=== PATIENT | female | born 1950 | race Two or more races ===

== ENCOUNTER 2017-04-19 13:39 | Emergency (ER) | payer OTHER, MEDICAID ==
[~2017-04-19] VITALS: Ht 157.5 cm; Wt 52.2 kg
[~2017-04-19 13:39] MED LIST: AMIT PO; AMLO10TA2 PO; ASPI81CH49 PO; ATEN50TA PO; CHOL100029; GABA300C8 PO; GLIP-115 PO; METF-312 PO; NITR400A5 SL; PIOG15TA46; PROVENTIL HFA INH; RABE20TA5 PO; SIMV-8 PO; [UNRECOGNIZED DRUG - OTHER]
[2017-04-19 15:28] VITALS: BP 157/59
[2017-04-19] MEDS ORDERED: IBUPROFEN 600 MG TAB PO ONE (15:45)
== END 2017-04-19 16:06 | disposition home or self-care (01) ==
LOC: ER 13:39
DX: S80.01XA Contusion of right knee, initial encounter (principal); M16.11 Unilateral primary osteoarthritis, right hip; E11.9 Type 2 diabetes mellitus without complications; I10 Essential (primary) hypertension; E78.5 Hyperlipidemia, unspecified; W10.8XXA Fall (on) (from) other stairs and steps, initial encounter; Y93.89 Activity, other specified; Y99.8 Other external cause status; Y92.89 Other specified places as the place of occurrence of the external cause; Z79.82 Long term (current) use of aspirin; Z88.0 Allergy status to penicillin; Z88.2 Allergy status to sulfonamides; Z79.899 Other long term (current) drug therapy
CPT/HCPCS: 73502; 73562

== ENCOUNTER 2018-02-12 02:00 | Inpatient (IN) | payer OTHER, MEDICAID ==
[~2018-02-12] VITALS: Ht 157.5 cm; Wt 60.3 kg
[~2018-02-12 02:00] MED LIST changes: +GABA300C10 PO; -GABA300C8 PO; -METF-312 PO; +METF-370 PO
[2018-02-12 02:45] LABS: Basophils # (auto) 0.1 uL; Basophils % (auto) 1.1 % (0.0-2.0); Eosinophils # (auto) 0.3 uL; Eosinophils % (auto) 4.6 % (0.0-7.0); Hematocrit 40.7 % (36.0-46.0); Hemoglobin 13.6 g/dL (12.2-16.2); Lymphocytes # (auto) 2.8 uL; Mean Corpuscular Hemoglobin 28.4 pg (28.0-32.0); Mean Corpuscular Hgb Conc. 33.3 g/dL (32.0-36.0); Mean Corpuscular Volume 85.1 fL (80.0-100.0); Monocytes # (auto) 0.6 uL; Monocytes % (auto) 8.9 % (0.0-12.0); Neutrophils % (auto) 44.4 % (37.0-80.0); Nucleated Red Blood Cells % 0.1 %; Platelet Count (auto) 221 10^3/uL (140-450); Red Blood Cells 4.78 10^6/uL (4.0-5.20); Red Cell Distribution Width 13.1 % (11.8-14.3); White Blood Cell 6.8 10^3/uL (4.4-10.8)
[2018-02-12 02:59] LABS: Albumin 3.7 g/dL (3.4-5.0); Anion Gap 11 (5-15); BUN/Creatinine Ratio 26.3; Blood Urea Nitrogen 15 mg/dL (7-18); Carbon Dioxide 23 mmol/L (21-32); Chloride 105 mmol/L (98-107); GFR African American 136 mL/min; GFR Non-African American 112 mL/min; Glucose 186 mg/dL (74-106); Magnesium 1.7 mg/dL (1.6-2.6); Potassium 3.1 mmol/L (3.5-5.1); Sodium 139 mmol/L (136-145)
[2018-02-12 03:11] LABS: Alanine Aminotransferase 16 U/L (13-56); Alkaline Phosphatase 86 U/L (45-117); Aspartate Aminotransferase 19 U/L (15-37); Bilirubin, Total 0.3 mg/dL (0.2-1.0); Total Protein 7.1 g/dL (6.4-8.2)
[2018-02-12] MEDS ORDERED: SODIUM CHLORIDE 0.9% 1,000 ML IV ONE (07:03)
[2018-02-12] MEDS ORDERED: POTASSIUM CHL 10% (20 MEQ/15ML) 15ml ORAL SOLN PO ONE (09:45)
[2018-02-12] MEDS ORDERED: MORPHINE SULFATE 4 MG/ML SYR/VIAL IV ONE (09:45)
[2018-02-12] MEDS: SODIUM CHLORIDE 0.9% 1,000 ML IV SCH (12:29)
[2018-02-12] MEDS ORDERED: ACETAMINOPHEN 500 MG TAB PO PRN (12:30)
[2018-02-12] MEDS ORDERED: PROMETHAZINE HCL 25 MG/ML 1ML IV PRN (12:30)
[2018-02-12] MEDS ORDERED: TEMAZEPAM 15 MG CAP PO PRN (12:30)
[2018-02-12] MEDS ORDERED: LACTULOSE 20Gm/30ML SOLN PO PRN (12:30)
[2018-02-12] MEDS ORDERED: PROVENTIL INH PRN (12:30)
[2018-02-12] MEDS ORDERED: ALBUTEROL SULF 2.5 MG/0.5ML(0.5%) NEB SOLN NEB PRN (12:30)
[2018-02-12] MEDS ORDERED: MORPHINE SULFATE 4 MG/ML SYR/VIAL IV PRN ×2 (12:30)
[2018-02-12] MEDS ORDERED: POTASSIUM CHL 20 Meq TABLET PO ONE (12:30)
[2018-02-12] MEDS ORDERED: NITROGLYCERIN 0.4 MG SL TAB SL PRN (12:30)
[2018-02-12] MEDS ORDERED: DEXTROSE (50%) 50ML SYRG IV PRN (12:30)
[2018-02-12] MEDS ORDERED: LORazepam 0.5 MG TAB PO PRN (12:30)
[2018-02-12 13:53] LABS: CRP High Sensitivity 0.27 mg/dL (< 0.3)
[2018-02-12 14:16] VITALS: BP 116/66
[2018-02-12 15:04] VITALS: BP 116/66
[2018-02-12 17:00] VITALS: BP 116/59
[2018-02-12] MEDS: ACCU-CHEK COMFORT CURVE STRIP VI SCH ×2 (17:06→22:11)
[2018-02-12] MEDS: glipiZIDE 5 MG TAB PO SCH (17:26)
[2018-02-12] MEDS: InsuLIN REG 1unit/0.01ml Soln (100units/ml) SC SCH ×2 (17:27→22:00)
[2018-02-12 20:00] VITALS: BP 136/79
[2018-02-12 22:00] VITALS: BP 136/79
[2018-02-12] MEDS ORDERED: AMITRIPTYLINE HCL 25 MG TAB PO SCH (22:00)
[2018-02-12] MEDS ORDERED: ATORVASTATIN 20 MG TAB PO SCH (22:00)
[2018-02-12] MEDS: GABAPENTIN 300 MG CAP PO SCH (22:11)
[2018-02-12] MEDS: METOPROLOL TARTRATE 50 MG TAB PO SCH (22:12)
[2018-02-12] MEDS: HYDROcodone-ACET 5/325MG TAB PO PRN (22:13)
[2018-02-13] MEDS: SODIUM CHLORIDE 0.9% 1,000 ML IV SCH (01:37)
[2018-02-13 05:00] VITALS: BP 138/79
[2018-02-13 06:25] LABS: Albumin 3.2 g/dL (3.4-5.0); BUN/Creatinine Ratio 34.1; Bilirubin, Total 0.3 mg/dL (0.2-1.0); Calcium 8.3 mg/dL (8.5-10.1); Total Protein 6.2 g/dL (6.4-8.2)
[2018-02-13] MEDS: HYDROcodone-ACET 5/325MG TAB PO PRN (06:26)
[2018-02-13] MEDS: glipiZIDE 5 MG TAB PO SCH (06:33)
[2018-02-13] MEDS: ACCU-CHEK COMFORT CURVE STRIP VI SCH ×2 (06:33→12:21)
[2018-02-13] MEDS: InsuLIN REG 1unit/0.01ml Soln (100units/ml) SC SCH ×2 (06:33→12:20)
[2018-02-13 09:15] VITALS: BP 120/68
[2018-02-13] MEDS: GABAPENTIN 300 MG CAP PO SCH (09:55)
[2018-02-13] MEDS: METOPROLOL TARTRATE 50 MG TAB PO SCH (09:55)
[2018-02-13] MEDS ORDERED: PANTOPRAZOLE 40 MG TAB PO SCH (10:00)
[2018-02-13] MEDS ORDERED: ASPirin 81 mg TAB PO SCH (10:00)
[2018-02-13] MEDS ORDERED: NITROGLYCERIN 0.2MG/HR TOPICAL PATCH TD SCH (10:00)
[2018-02-13] MEDS ORDERED: ENOXAPARIN SOD 40 MG/0.4 ML SYRINGE SC SCH (10:00)
[2018-02-13] MEDS ORDERED: amLODIPine BESYLATE 5 MG TAB PO SCH (10:00)
[2018-02-13 13:00] VITALS: BP 131/65
[2018-02-13] MEDS ORDERED: AMLO10TA2 PO (13:23)
[2018-02-13] MEDS ORDERED: MET50T PO (13:26)
[2018-02-13] MEDS ORDERED: AML5T PO (13:26)
[2018-02-13 14:29] VITALS: BP 130/68
[2018-03-03] MEDS ORDERED: AMI25T PO (16:16)
[2018-03-03] MEDS ORDERED: SITA100T7 (16:43)
[2018-03-03] MEDS ORDERED: ALBUAER3 (16:43)
[2018-03-03] MEDS ORDERED: CALC600T4 PO (16:43)
[2018-03-03] MEDS ORDERED: LACT10SO3 PO (16:43)
[2018-03-03] MEDS ORDERED: AMLO10TA2 (16:43)
[2018-03-03] MEDS ORDERED: GABA400C11 PO (16:43)
[2018-03-03] MEDS ORDERED: LOS25T (16:43)
[2018-03-03] MEDS ORDERED: PANT1POW PO (16:43)
[2018-03-03] MEDS ORDERED: METF-371 (16:43)
[2018-03-04] MEDS ORDERED: SITA100T7 PO (11:12)
[2018-03-04] MEDS ORDERED: LOSA25TA9 PO (11:31)
[2018-03-04] MEDS ORDERED: METF-371 PO (11:32)
== END 2018-02-13 16:05 | disposition home or self-care (01) | DRG 392 ==
LOC: EDBD 02:00 → ER 02:07 → TELE 02:08 → TELE-CENTR 13:52
PROVIDERS: ADMIT Internal Medicine; ATTEND Internal Medicine
DX: K52.9 Noninfective gastroenteritis and colitis, unspecified (principal); E11.40 Type 2 diabetes mellitus with diabetic neuropathy, unspecified; E11.51 Type 2 diabetes mellitus with diabetic peripheral angiopathy without gangrene; I25.119 Atherosclerotic heart disease of native coronary artery with unspecified angina pectoris; J44.9 Chronic obstructive pulmonary disease, unspecified; R07.89 Other chest pain; E78.5 Hyperlipidemia, unspecified; E87.6 Hypokalemia; K57.90 Diverticulosis of intestine, part unspecified, without perforation or abscess without bleeding; M19.90 Unspecified osteoarthritis, unspecified site; M54.9 Dorsalgia, unspecified; I10 Essential (primary) hypertension; K21.9 Gastro-esophageal reflux disease without esophagitis; M81.0 Age-related osteoporosis without current pathological fracture; Z82.49 Family history of ischemic heart disease and other diseases of the circulatory system; Z86.010 Personal history of colon polyps; Z83.3 Family history of diabetes mellitus; I25.2 Old myocardial infarction; Z88.0 Allergy status to penicillin; Z88.2 Allergy status to sulfonamides
CPT/HCPCS: 36415; 71045; 74176; 80053; 80061; 82150; 82550; 82962; 83036; 83690; 83735; 83880; 84443; 84484; 85025; 85379; 85652; 86141; 93005; 93306; 96374; J1815

== ENCOUNTER 2018-03-27 07:05 | Day surgery (SDC) | payer OTHER, MEDICAID ==
[~2018-03-27] VITALS: Ht 157.5 cm; Wt 52.0 kg
[~2018-03-27 07:05] MED LIST changes: -AMIT PO; -AMLO10TA2 PO; +AMLO5TAB2 PO; -ATEN50TA PO; +CALC600T4 PO; -CHOL100029; -GABA300C10 PO; +GABA400C11 PO; +LACT10SO3 PO; +LOSA25TA9 PO; -METF-370 PO; +METF-371 PO; +METO-158 PO; -NITR400A5 SL; +PANT1POW PO; -PIOG15TA46; -PROVENTIL HFA INH; -RABE20TA5 PO; +SITA100T7 PO; -[UNRECOGNIZED DRUG - OTHER]
[2018-03-27] MEDS ORDERED: fentaNYL CITRATE 100 MCG/2 ML VL ONE (08:57)
[2018-03-27] MEDS ORDERED: ANGIOMAX 250 MG VIAL IV ONE (08:57)
[2018-03-27] MEDS ORDERED: MIDAZOLAM HCL 1MG/1ML-2 ML VIAL ONE (08:57)
[2018-03-27] MEDS ORDERED: SODIUM CHL 0.9% 0 ML ONE (08:57)
[2018-03-27] MEDS ORDERED: LIDOCAINE 2%HCL (LOCAL ANESTH.) INJ 20ML MDV ONE (09:03)
[2018-03-27] MEDS ORDERED: IODIXANOL 320MG/ML 100ML BTL IV ONE (09:03)
[2018-03-27] MEDS ORDERED: VERAPAMIL 2.5MG/ML INJ 2ML VIAL IV ONE (09:15)
[2018-03-27] MEDS ORDERED: HEPARIN SODIUM (PORCINE) 5000 UNITS/ML 1ML VIAL ONE (09:33)
== END 2018-03-27 11:50 | disposition home or self-care (01) ==
LOC: CATH 07:05
PROVIDERS: ATTEND Internal Medicine
DX: I20.0 Unstable angina (principal); I25.9 Chronic ischemic heart disease, unspecified; Z88.0 Allergy status to penicillin; Z88.2 Allergy status to sulfonamides; Z98.51 Tubal ligation status; Z90.710 Acquired absence of both cervix and uterus; F41.9 Anxiety disorder, unspecified; F32.9 Major depressive disorder, single episode, unspecified; Z79.84 Long term (current) use of oral hypoglycemic drugs
CPT/HCPCS: 93005; C1769; C1894; J1644; J2250; J3010; J7030; Q9967; 93458; 99152

== ENCOUNTER 2018-04-21 14:15 | Emergency (ER) | payer OTHER, MEDICAID ==
[2018-04-21 16:04] LABS: Basophils # (auto) 0.1 uL; Basophils % (auto) 0.9 % (0.0-2.0); Eosinophils # (auto) 0.2 uL; Eosinophils % (auto) 3.2 % (0.0-7.0); Hematocrit 41.1 % (36.0-46.0); Lymphocytes # (auto) 2.1 uL; Lymphocytes % (auto) 29.8 % (10.0-50.0); Mean Corpuscular Hemoglobin 28.4 pg (28.0-32.0); Mean Corpuscular Hgb Conc. 34.1 g/dL (32.0-36.0); Mean Corpuscular Volume 83.3 fL (80.0-100.0); Monocytes # (auto) 0.5 uL; Monocytes % (auto) 7.3 % (0.0-12.0); Neutrophils # (auto) 4.1 uL; Neutrophils % (auto) 58.8 % (37.0-80.0); Nucleated Red Blood Cells % 0.1 %; Platelet Count (auto) 253 10^3/uL (140-450); Red Blood Cells 4.94 10^6/uL (4.0-5.20)
[2018-04-21 16:09] LABS: INR 0.94 (0.9-1.15); Prothrombin Time 10.1 sec (9.27-12.13)
[2018-04-21 16:11] LABS: BUN/Creatinine Ratio 22.2; Calcium 9.5 mg/dL (8.5-10.1); Magnesium 2.1 mg/dL (1.6-2.6); Potassium 4.1 mmol/L (3.5-5.1)
[2018-04-21 16:13] LABS: Bilirubin, Total 0.3 mg/dL (0.2-1.0); Total Protein 7.8 g/dL (6.4-8.2)
[2018-04-21 16:49] LABS: Urine WBC None Seen /hpf (0 - 5)
[2018-04-21 17:13] LABS: Urine Bacteria NONE SEEN /hpf (None Seen); Urine Blood Negative /uL (Negative); Urine Specific Gravity 1.003 (1.001-1.035)
[2018-04-21 17:15] VITALS: BP 128/59
== END 2018-04-21 17:29 | disposition home or self-care (01) ==
LOC: ER 14:17
DX: K57.30 Diverticulosis of large intestine without perforation or abscess without bleeding (principal); I10 Essential (primary) hypertension; E11.9 Type 2 diabetes mellitus without complications; K21.9 Gastro-esophageal reflux disease without esophagitis; M19.90 Unspecified osteoarthritis, unspecified site; E78.5 Hyperlipidemia, unspecified; Z79.82 Long term (current) use of aspirin; Z79.84 Long term (current) use of oral hypoglycemic drugs; Z88.2 Allergy status to sulfonamides; Z88.0 Allergy status to penicillin
CPT/HCPCS: 36415; 74176; 80053; 81001; 82150; 83690; 83735; 85025; 85610; 85730; 93005

== ENCOUNTER 2018-11-20 16:07 | Emergency (ER) | payer OTHER, MEDICAID ==
[~2018-11-20] VITALS: Ht 154.9 cm; Wt 52.2 kg
[~2018-11-20 16:07] MED LIST changes: +AMLO5TAB13 PO; -AMLO5TAB2 PO; +LOSA25TA40 PO; -LOSA25TA9 PO
[2018-11-20] MEDS ORDERED: ASPirin 81 mg TAB PO ONE (16:45)
[2018-11-20] MEDS ORDERED: LEVOFLOXACIN 500 MG TAB PO ONE (16:45)
[2018-11-20] MEDS ORDERED: NITROGLYCERIN 0.4 MG SL TAB SL ONE (16:45)
[2018-11-20 17:07] LABS: Basophils # (auto) 0.1 uL; Basophils % (auto) 0.7 % (0.0-2.0); Eosinophils # (auto) 0.2 uL; Eosinophils % (auto) 2.8 % (0.0-7.0); Hematocrit 39.6 % (36.0-46.0); Hemoglobin 13.1 g/dL (12.2-16.2); Lymphocytes # (auto) 0.9 uL; Lymphocytes % (auto) 12.5 % (10.0-50.0); Mean Corpuscular Hemoglobin 27.5 pg (28.0-32.0); Mean Corpuscular Volume 83.3 fL (80.0-100.0); Monocytes # (auto) 0.9 uL; Monocytes % (auto) 12.7 % (0.0-12.0); Neutrophils # (auto) 5.1 uL; Neutrophils % (auto) 71.3 % (37.0-80.0); Nucleated Red Blood Cells % 0.1 %; Platelet Count (auto) 192 10^3/uL (140-450); Red Blood Cells 4.75 10^6/uL (4.0-5.20); Red Cell Distribution Width 14.2 % (11.8-14.3); White Blood Cell 7.2 10^3/uL (4.4-10.8)
[2018-11-20 17:21] LABS: Albumin 4.1 g/dL (3.4-5.0); Anion Gap 10 (5-15); Blood Urea Nitrogen 13 mg/dL (7-18); Calcium 9.1 mg/dL (8.5-10.1); Carbon Dioxide 24 mmol/L (21-32); Chloride 97 mmol/L (98-107); Glucose 169 mg/dL (74-106); Potassium 3.4 mmol/L (3.5-5.1); Sodium 131 mmol/L (136-145)
[2018-11-20 17:26] LABS: Alanine Aminotransferase 15 U/L (13-56); Alkaline Phosphatase 69 U/L (45-117); Aspartate Aminotransferase 20 U/L (15-37); BUN/Creatinine Ratio 10.3; Bilirubin, Total 0.3 mg/dL (0.2-1.0); GFR African American 54 mL/min; GFR Non-African American 45 mL/min; Total Protein 7.5 g/dL (6.4-8.2)
[2018-11-20] MEDS ORDERED: POTASSIUM EFFERVESENT TAB 25 MEQ PO ONE (18:00)
[2018-11-20] MEDS ORDERED: MECLIZINE HCL 25 MG TAB PO ONE (18:00)
[2018-11-20 18:57] VITALS: BP 112/54
== END 2018-11-20 19:08 | disposition home or self-care (01) ==
LOC: EDBD 16:07 → ER 16:10
DX: E11.65 Type 2 diabetes mellitus with hyperglycemia (principal); J40 Bronchitis, not specified as acute or chronic; E87.6 Hypokalemia; M19.90 Unspecified osteoarthritis, unspecified site; E11.9 Type 2 diabetes mellitus without complications; K21.9 Gastro-esophageal reflux disease without esophagitis; E78.5 Hyperlipidemia, unspecified
CPT/HCPCS: 36415; 71045; 80053; 84484; 85025; 93005; 99284; J8597

== ENCOUNTER 2018-12-04 14:01 | Emergency (ER) | payer OTHER, MEDICAID ==
[~2018-12-04] VITALS: Ht 157.5 cm; Wt 54.0 kg
[2018-12-04 14:56] LABS: Basophils # (auto) 0.1 uL; Eosinophils # (auto) 0.2 uL; Hemoglobin 13.3 g/dL (12.2-16.2); Monocytes # (auto) 0.6 uL; Neutrophils # (auto) 5.3 uL; Nucleated Red Blood Cells % 0.1 %
[2018-12-04 14:59] LABS: Basophils % (auto) 1.3 % (0.0-2.0); Eosinophils % (auto) 2.9 % (0.0-7.0); Hematocrit 40.2 % (36.0-46.0); Lymphocytes # (auto) 1.9 uL; Lymphocytes % (auto) 22.8 % (10.0-50.0); Mean Corpuscular Hemoglobin 27.3 pg (28.0-32.0); Mean Corpuscular Volume 82.8 fL (80.0-100.0); Platelet Count (auto) 244 10^3/uL (140-450); Red Blood Cells 4.85 10^6/uL (4.0-5.20); Red Cell Distribution Width 14.1 % (11.8-14.3); White Blood Cell 8.1 10^3/uL (4.4-10.8)
[2018-12-04 15:09] LABS: Alanine Aminotransferase 13 U/L (13-56); Anion Gap 9 (5-15); Aspartate Aminotransferase 18 U/L (15-37); Blood Urea Nitrogen 15 mg/dL (7-18); Calcium 8.9 mg/dL (8.5-10.1); Carbon Dioxide 24 mmol/L (21-32); Chloride 104 mmol/L (98-107); GFR African American 99 mL/min; GFR Non-African American 81 mL/min; Glucose 142 mg/dL (74-106); Magnesium 1.9 mg/dL (1.6-2.6); Potassium 4.3 mmol/L (3.5-5.1); Sodium 137 mmol/L (136-145)
[2018-12-04 15:13] LABS: Alkaline Phosphatase 73 U/L (45-117); Bilirubin, Total 0.4 mg/dL (0.2-1.0); Total Protein 7.5 g/dL (6.4-8.2)
[2018-12-04 17:05] VITALS: BP 123/70
== END 2018-12-04 17:13 | disposition home or self-care (01) ==
LOC: ER 14:04
DX: E11.40 Type 2 diabetes mellitus with diabetic neuropathy, unspecified (principal); E11.65 Type 2 diabetes mellitus with hyperglycemia; R51 Headache; M19.90 Unspecified osteoarthritis, unspecified site; J44.9 Chronic obstructive pulmonary disease, unspecified; K21.9 Gastro-esophageal reflux disease without esophagitis; E78.5 Hyperlipidemia, unspecified; I10 Essential (primary) hypertension; Z88.0 Allergy status to penicillin; Z88.2 Allergy status to sulfonamides; Z79.899 Other long term (current) drug therapy
CPT/HCPCS: 36415; 70450; 80053; 83735; 84484; 85025; 93005

== ENCOUNTER 2019-03-31 11:42 | Emergency (ER) | payer OTHER, MEDICAID ==
[~2019-03-31] VITALS: Ht 157.5 cm; Wt 54.4 kg
[2019-03-31 13:35] LABS: Basophils # (auto) 0.1 uL; Basophils % (auto) 0.9 % (0.0-2.0); Eosinophils # (auto) 0.1 uL; Hemoglobin 13.2 g/dL (12.2-16.2); Mean Corpuscular Hemoglobin 26.3 pg (28.0-32.0); Monocytes # (auto) 0.7 uL; Nucleated Red Blood Cells % 0.1 %; Red Cell Distribution Width 13.5 % (11.8-14.3)
[2019-03-31 13:37] LABS: Eosinophils % (auto) 1.8 % (0.0-7.0); Hematocrit 40.1 % (36.0-46.0); Lymphocytes # (auto) 2.8 uL; Lymphocytes % (auto) 41.9 % (10.0-50.0); Mean Corpuscular Volume 79.7 fL (80.0-100.0); Monocytes % (auto) 10.9 % (0.0-12.0); Neutrophils % (auto) 44.5 % (37.0-80.0); Platelet Count (auto) 262 10^3/uL (140-450); Red Blood Cells 5.03 10^6/uL (4.0-5.20); White Blood Cell 6.7 10^3/uL (4.4-10.8)
[2019-03-31 13:47] LABS: INR 0.95 (0.9-1.15); Partial Thromboplastin Time 25.7 sec (23.78-33.04); Prothrombin Time 10.2 sec (9.27-12.13)
[2019-03-31 13:56] LABS: Alanine Aminotransferase 23 U/L (13-56); Anion Gap 10 (5-15); Blood Urea Nitrogen 10 mg/dL (7-18); Calcium 9.1 mg/dL (8.5-10.1); Carbon Dioxide 25 mmol/L (21-32); Chloride 103 mmol/L (98-107); Glucose 225 mg/dL (74-106); Magnesium 2.2 mg/dL (1.6-2.6); Potassium 3.9 mmol/L (3.5-5.1); Sodium 138 mmol/L (136-145)
[2019-03-31 14:01] LABS: Alkaline Phosphatase 101 U/L (45-117); Aspartate Aminotransferase 24 U/L (15-37); BUN/Creatinine Ratio 14.9; Bilirubin, Total 0.4 mg/dL (0.2-1.0); GFR African American 112 mL/min; GFR Non-African American 93 mL/min; Total Protein 7.8 g/dL (6.4-8.2)
[2019-03-31 14:37] VITALS: BP 116/66
[2019-03-31 14:53] LABS: Urine Bacteria MANY /hpf (None Seen); Urine Blood 1+ /uL (Negative); Urine Specific Gravity 1.007 (1.001-1.035); Urine WBC 473 /hpf (0 - 5); Urine WBC Clumps PRESENT /hpf (None Seen)
== END 2019-03-31 15:45 | disposition home or self-care (01) ==
LOC: ER 11:42
DX: H11.32 Conjunctival hemorrhage, left eye (principal); G89.0 Central pain syndrome; N39.0 Urinary tract infection, site not specified; I20.9 Angina pectoris, unspecified; M19.90 Unspecified osteoarthritis, unspecified site; J44.9 Chronic obstructive pulmonary disease, unspecified; E11.9 Type 2 diabetes mellitus without complications; I10 Essential (primary) hypertension; E78.5 Hyperlipidemia, unspecified; Z88.0 Allergy status to penicillin; Z88.2 Allergy status to sulfonamides
CPT/HCPCS: 36415; 70450; 80053; 81001; 82962; 83735; 83880; 84484; 85025; 85610; 85730; 93005; 93970

== ENCOUNTER 2019-10-23 19:24 | Emergency (ER) | payer OTHER, MEDICAID ==
[~2019-10-23] VITALS: Ht 157.5 cm; Wt 70.3 kg
[~2019-10-23 19:24] MED LIST changes: -AMLO5TAB13 PO; +AMLO5TAB15 PO; -GLIP-115 PO; +GLIP5TAB12 PO; +LOSA25TA38 PO; -LOSA25TA40 PO
[2019-10-23 21:36] LABS: Eosinophils # (auto) 0 uL; Eosinophils % (auto) 0.5 % (0.0-7.0); Monocytes # (auto) 0.4 uL
[2019-10-23 21:37] LABS: Basophils # (auto) 0 uL; Basophils % (auto) 0.3 % (0.0-2.0); Hematocrit 40.4 % (36.0-46.0); Hemoglobin 13.3 g/dL (12.2-16.2); Lymphocytes # (auto) 0.8 uL; Mean Corpuscular Hemoglobin 25.3 pg (28.0-32.0); Mean Corpuscular Hgb Conc. 32.9 g/dL (32.0-36.0); Monocytes % (auto) 4.3 % (0.0-12.0); Neutrophils # (auto) 8.2 uL; Neutrophils % (auto) 86.9 % (37.0-80.0); Platelet Count (auto) 268 10^3/uL (140-450); Red Blood Cells 5.24 10^6/uL (4.0-5.20); Red Cell Distribution Width 15.1 % (11.8-14.3); White Blood Cell 9.5 10^3/uL (4.4-10.8)
[2019-10-23 21:53] LABS: Albumin 3.9 g/dL (3.4-5.0); Anion Gap 10 (5-15); Blood Urea Nitrogen 18 mg/dL (7-18); Calcium 8.5 mg/dL (8.5-10.1); Carbon Dioxide 23 mmol/L (21-32); Chloride 103 mmol/L (98-107); Glucose 135 mg/dL (74-106); Lipase 446 U/L (73-393); Magnesium 2.1 mg/dL (1.6-2.6); Potassium 4.1 mmol/L (3.5-5.1); Sodium 136 mmol/L (136-145)
[2019-10-23 21:56] LABS: Alanine Aminotransferase 15 U/L (13-56); Aspartate Aminotransferase 24 U/L (15-37); GFR African American 133 mL/min; GFR Non-African American 110 mL/min
[2019-10-23 22:03] LABS: Alkaline Phosphatase 59 U/L (45-117); Bilirubin, Total 0.5 mg/dL (0.2-1.0); Total Protein 7.7 g/dL (6.4-8.2)
[2019-10-24] VITALS: BP 112/41
[2019-10-24] MEDS ORDERED: ONDANSETRON HCL 4 MG/2 ML VIAL IV ONE
[2019-10-24] MEDS ORDERED: SODIUM CHLORIDE 0.9% 1,000 ML IV ONE
[2019-10-24] MEDS ORDERED: MORPHINE SULFATE 4 MG/ML SYR/VIAL IV ONE (00:15)
[2019-10-24 00:41] LABS: Urine Bacteria FEW /hpf (None Seen); Urine Blood Negative /uL (Negative); Urine Hyaline Cast FEW /lpf (0 - 2); Urine Specific Gravity 1.007 (1.001-1.035); Urine WBC 1 /hpf (0 - 5)
== END 2019-10-24 01:44 | disposition home or self-care (01) ==
LOC: ER 19:24
DX: A08.4 Viral intestinal infection, unspecified (principal); K57.90 Diverticulosis of intestine, part unspecified, without perforation or abscess without bleeding; J44.9 Chronic obstructive pulmonary disease, unspecified; E11.9 Type 2 diabetes mellitus without complications; K21.9 Gastro-esophageal reflux disease without esophagitis; E78.5 Hyperlipidemia, unspecified; I10 Essential (primary) hypertension; Z88.0 Allergy status to penicillin; Z88.2 Allergy status to sulfonamides; Z79.82 Long term (current) use of aspirin; Z79.899 Other long term (current) drug therapy
CPT/HCPCS: 36415; 74176; 80053; 81001; 83690; 83735; 84484; 85025; 93005; 96361; 96374; 96375; 99284; J2270; J2405

== ENCOUNTER 2020-09-19 07:57 | Inpatient (IN) | payer OTHER, MEDICAID ==
[~2020-09-19] VITALS: Ht 157.5 cm; Wt 49.4 kg
[~2020-09-19 07:57] MED LIST changes: -CALC600T4 PO; +CALC600T5 PO
[2020-09-19] MEDS ORDERED: ASPirin 81 mg TAB PO ONE (08:15)
[2020-09-19 09:20] LABS: Basophils # (auto) 0 10 ^3/uL (0-0.2); Eosinophils # (auto) 0.2 10 ^3/uL (0-0.8); Lymphocytes # (auto) 1.7 10 ^3/uL (0.4-5.4); Monocytes # (auto) 0.4 10 ^3/uL (0-1.3); Monocytes % (auto) 8.3 % (0.0-12.0); Neutrophils # (auto) 2.5 10 ^3/uL (1.6-8.6); Nucleated Red Blood Cells % 0.1 %
[2020-09-19 09:23] LABS: Eosinophils % (auto) 3.2 % (0.0-7.0); Hematocrit 42.6 % (36.0-46.0); Hemoglobin 13.9 g/dL (12.2-16.2); Lymphocytes % (auto) 35.1 % (10.0-50.0); Mean Corpuscular Hemoglobin 25.9 pg (28.0-32.0); Mean Corpuscular Hgb Conc. 32.7 g/dL (32.0-36.0); Mean Corpuscular Volume 79.1 fL (80.0-100.0); Neutrophils % (auto) 52.4 % (37.0-80.0); Platelet Count (auto) 248 10^3/uL (140-450); Red Blood Cells 5.38 10^6/uL (4.0-5.20); White Blood Cell 4.7 10^3/uL (4.4-10.8)
[2020-09-19 09:39] LABS: Calcium 9.6 mg/dL (8.5-10.1); Chloride 105 mmol/L (98-107); Potassium 3.8 mmol/L (3.5-5.1); Sodium 139 mmol/L (136-145)
[2020-09-19 09:47] LABS: Alanine Aminotransferase 13 U/L (13-56); Albumin 4.5 g/dL (3.4-5.0); Alkaline Phosphatase 69 U/L (45-117); Anion Gap 7 (5-15); Aspartate Aminotransferase 22 U/L (15-37); BUN/Creatinine Ratio 18.5; Bilirubin, Total 0.4 mg/dL (0.2-1.0); Blood Urea Nitrogen 10 mg/dL (7-18); Carbon Dioxide 27 mmol/L (21-32); GFR African American 144 mL/min; GFR Non-African American 119 mL/min; Glucose 129 mg/dL (74-106); Total Protein 8.2 g/dL (6.4-8.2)
[2020-09-19] MEDS ORDERED: NITROGLYCERIN 0.4 MG SL TAB SL PRN (11:45)
[2020-09-19] MEDS ORDERED: ONDANSETRON HCL 4 MG/2 ML VIAL IV PRN (11:45)
[2020-09-19] MEDS ORDERED: MORPHINE SULF INJ 2 MG/ML SYRINGE 1ML IV PRN ×2 (11:45→12:30)
[2020-09-19] MEDS ORDERED: HYDROcodone-ACET 5/325MG TAB PO PRN (11:45)
[2020-09-19] MEDS ORDERED: MORPHINE SULF INJ 2 MG/ML SYRINGE 1ML IV SCH (12:00)
[2020-09-19] MEDS: METOPROLOL TARTRATE 50 MG TAB PO SCH ×2 (14:00→22:13)
[2020-09-19] MEDS: GABAPENTIN 400 MG CAP PO SCH ×2 (14:00→22:10)
[2020-09-19] MEDS: LACTULOSE 20Gm/30ML SOLN PO SCH ×2 (14:00→22:00)
[2020-09-19 14:02] LABS: Urine Bacteria NONE SEEN /hpf (None Seen); Urine Blood Negative /uL (Negative); Urine WBC 5 /hpf (0 - 5)
[2020-09-19] MEDS ORDERED: LIRA18IN2 SUBCUT (17:19)
[2020-09-19] MEDS ORDERED: CHOL100029 PO (17:21)
[2020-09-19] MEDS ORDERED: METO-159 PO (17:22)
[2020-09-19] MEDS ORDERED: AMLO10TA13 PO (17:23)
[2020-09-19] MEDS ORDERED: GLIP5TAB12 PO (17:25)
[2020-09-19] MEDS ORDERED: CANA100T PO (17:25)
[2020-09-19] MEDS ORDERED: METF-371 PO (17:26)
[2020-09-19] MEDS ORDERED: DOCU1CAP31 PO (17:27)
[2020-09-19] MEDS ORDERED: ALBUAER3 IN (17:27)
[2020-09-19] MEDS ORDERED: ASPI81CH43 PO (18:09)
--- NOTE | 2020-09-19 18:35 | NUR ---
Telemetry admit from ER FRANK MURPHY V admitted to Telemetry unit after report received. Patient oriented to MARIBLE BRAMBILA RN primary RN, unit, room, bed, and unit policies regarding patient care and visiting hours. Patient now on continuous telemetry monitoring, tele box #64. Patient encouraged to call if they need something. All questions and concerns addressed, patient verbalized understanding. Order for discharge noted if clearance obtained from Dr. Vega. Will endorse to supervisor scenic arts RN.
--- NOTE | 2020-09-19 19:04 | NUR ---
Page to Dr. Vega Page to Dr. Vega at this time regarding cardiac clearance. Awaiting callback.
--- NOTE | 2020-09-19 19:09 | NUR ---
Dr. Vega Callback Dr. Vega called at this time. Patient is cleared for discharge but needs to be followed up with a melter loader. Patient states she normally sees Dr. Bourne. Will endorse to machine load clerk RN.
--- NOTE | 2020-09-19 19:36 | NUR ---
Closing Shift Note Patient resting in bed. No distress noted. Will endorse care to the diet kitchen cook RN. RN aware of pending discharge and cardiac clearance.
--- NOTE | 2020-09-19 19:40 | NUR ---
Opening Shift Note Received report and assumed care of patient. Patient is awake and alert. No signs or symptoms of distress noted. Instructed patient on plan of care and to call for assistance as needed. Educated patient regarding pending discharge. Will continue to monitor.
[2020-09-19 20:42] VITALS: BP 127/58
[2020-09-19] MEDS ORDERED: ATORVASTATIN 20 MG TAB PO SCH (22:00)
--- NOTE | 2020-09-19 22:05 | NUR ---
Spoke with Dr. Skinner Per , continue with discharge as ordered.
[2020-09-19 22:10] VITALS: BP 133/74
--- NOTE | 2020-09-19 22:34 | NUR ---
Patient Discharge Patient educated and given discharge instructions, patient verbalized understanding. Telemetry box removed and IV discontinued with catheter tip intact. Patient wheeled out at [id number].
[2020-09-20] MEDS ORDERED: LOSARTAN POTASSIUM 25 MG TAB PO SCH (10:00)
[2020-09-20] MEDS ORDERED: amLODIPine BESYLATE 5 MG TAB PO SCH (10:00)
[2020-09-20] MEDS ORDERED: CALCIUM CARB 500 MG CHEW TAB PO SCH (10:00)
[2020-09-20] MEDS ORDERED: PANTOPRAZOLE 40 MG TAB PO SCH (10:00)
[2020-09-20] MEDS ORDERED: ASPirin 81 mg TAB PO SCH (10:00)
== END 2020-09-19 22:34 | disposition home or self-care (01) | DRG 313 ==
LOC: ER 07:57 → TELE 07:58 → TELE-WESTW 18:39
PROVIDERS: ADMIT Internal Medicine; ATTEND Internal Medicine
DX: R07.89 Other chest pain (principal); E11.65 Type 2 diabetes mellitus with hyperglycemia; E11.40 Type 2 diabetes mellitus with diabetic neuropathy, unspecified; E78.5 Hyperlipidemia, unspecified; I10 Essential (primary) hypertension; J44.9 Chronic obstructive pulmonary disease, unspecified; K21.9 Gastro-esophageal reflux disease without esophagitis; M19.90 Unspecified osteoarthritis, unspecified site; Z88.0 Allergy status to penicillin; Z83.3 Family history of diabetes mellitus; Z82.49 Family history of ischemic heart disease and other diseases of the circulatory system; Z88.2 Allergy status to sulfonamides
CPT/HCPCS: 36415; 71045; 80053; 81001; 84484; 85025; 93306; G0378

== ENCOUNTER 2020-10-10 08:55 | Emergency (ER) | payer OTHER, MEDICAID ==
[~2020-10-10] VITALS: Ht 157.5 cm; Wt 54.4 kg
[~2020-10-10 08:55] MED LIST changes: +ALBUAER3 IN; +AMLO10TA13 PO; -AMLO5TAB15 PO; +ASPI81CH43 PO; -ASPI81CH49 PO; -CALC600T5 PO; +CANA100T PO; +CHOL100029 PO; +DOCU1CAP31 PO; -LACT10SO3 PO; +LIRA18IN2 SUBCUT; -METO-158 PO; +METO-159 PO; -PANT1POW PO; -SITA100T7 PO
[2020-10-10 09:50] LABS: Monocytes # (auto) 0.4 10 ^3/uL (0-1.3)
[2020-10-10 09:51] LABS: Basophils # (auto) 0 10 ^3/uL (0-0.2); Basophils % (auto) 0.7 % (0.0-2.0); Eosinophils # (auto) 0.1 10 ^3/uL (0-0.8); Eosinophils % (auto) 1.9 % (0.0-7.0); Hematocrit 41.8 % (36.0-46.0); Lymphocytes # (auto) 1.7 10 ^3/uL (0.4-5.4); Lymphocytes % (auto) 29.1 % (10.0-50.0); Mean Corpuscular Hemoglobin 26.6 pg (28.0-32.0); Mean Corpuscular Hgb Conc. 33.4 g/dL (32.0-36.0); Mean Corpuscular Volume 79.4 fL (80.0-100.0); Monocytes % (auto) 7.6 % (0.0-12.0); Neutrophils # (auto) 3.5 10 ^3/uL (1.6-8.6); Neutrophils % (auto) 60.7 % (37.0-80.0); Nucleated Red Blood Cells % 0.2 %; Platelet Count (auto) 252 10^3/uL (140-450); Red Blood Cells 5.27 10^6/uL (4.0-5.20); Red Cell Distribution Width 16.2 % (11.8-14.3); White Blood Cell 5.8 10^3/uL (4.4-10.8)
[2020-10-10 10:20] LABS: Albumin 4.3 g/dL (3.4-5.0); Anion Gap 7 (5-15); Blood Urea Nitrogen 10 mg/dL (7-18); Calcium 9.4 mg/dL (8.5-10.1); Carbon Dioxide 25 mmol/L (21-32); Chloride 105 mmol/L (98-107); Glucose 117 mg/dL (74-106); Magnesium 2.5 mg/dL (1.6-2.6); Potassium 3.8 mmol/L (3.5-5.1); Sodium 137 mmol/L (136-145)
[2020-10-10 10:26] LABS: Alanine Aminotransferase 13 U/L (13-56); Alkaline Phosphatase 65 U/L (45-117); Aspartate Aminotransferase 17 U/L (15-37); Bilirubin, Total 0.5 mg/dL (0.2-1.0); GFR African American 157 mL/min; GFR Non-African American 130 mL/min; Total Protein 7.9 g/dL (6.4-8.2)
[2020-10-10 10:31] LABS: Urine Bacteria FEW /hpf (None Seen); Urine Blood Negative /uL (Negative); Urine Specific Gravity 1.006 (1.001-1.035); Urine WBC <1 /hpf (0 - 5)
[2020-10-10] MEDS ORDERED: cefTRIAXone 1GM/50ML D5W 50 ML IV ONE (12:00)
[2020-10-10 12:15] VITALS: BP 98/55
== END 2020-10-10 12:45 | disposition home or self-care (01) ==
LOC: EDBD 08:55 → ER 08:55
DX: F03.90 Unspecified dementia, unspecified severity, without behavioral disturbance, psychotic disturbance, mood disturbance, and anxiety (principal); E86.0 Dehydration; N39.0 Urinary tract infection, site not specified; J44.9 Chronic obstructive pulmonary disease, unspecified; E11.9 Type 2 diabetes mellitus without complications; K21.9 Gastro-esophageal reflux disease without esophagitis; E78.5 Hyperlipidemia, unspecified; I10 Essential (primary) hypertension; Z88.0 Allergy status to penicillin; Z88.2 Allergy status to sulfonamides
CPT/HCPCS: 36415; 70450; 71045; 80053; 81001; 83605; 83735; 84484; 85025; 87040; 93005; 96365; 99285; J0696

== ENCOUNTER 2020-10-22 10:13 | Inpatient (IN) | payer OTHER, MEDICAID ==
[~2020-10-22] VITALS: Ht 157.5 cm; Wt 54.5 kg
[~2020-10-22 10:13] MED LIST changes: +AMLO-496 PO; -AMLO10TA13 PO
[2020-10-22] MEDS ORDERED: ACETAMINOPHEN 325 MG TAB PO ONE (11:15)
[2020-10-22 11:56] LABS: Basophils # (auto) 0 10 ^3/uL (0-0.2); Eosinophils # (auto) 0 10 ^3/uL (0-0.8); Platelet Count (auto) 200 10^3/uL (140-450); White Blood Cell 5.4 10^3/uL (4.4-10.8)
[2020-10-22 11:58] LABS: Basophils % (auto) 0.2 % (0.0-2.0); Hematocrit 36.8 % (36.0-46.0); Hemoglobin 11.9 g/dL (12.2-16.2); Lymphocytes # (auto) 0.6 10 ^3/uL (0.4-5.4); Lymphocytes % (auto) 11.2 % (10.0-50.0); Mean Corpuscular Hemoglobin 25.7 pg (28.0-32.0); Mean Corpuscular Hgb Conc. 32.5 g/dL (32.0-36.0); Mean Corpuscular Volume 79.2 fL (80.0-100.0); Monocytes # (auto) 0.3 10 ^3/uL (0-1.3); Monocytes % (auto) 6.1 % (0.0-12.0); Neutrophils # (auto) 4.5 10 ^3/uL (1.6-8.6); Neutrophils % (auto) 82.5 % (37.0-80.0); Nucleated Red Blood Cells % 0.1 %; Red Blood Cells 4.64 10^6/uL (4.0-5.20)
[2020-10-22 12:14] LABS: INR 1.01 (0.9-1.15); Partial Thromboplastin Time 32.8 sec (23.0-31.2)
[2020-10-22 12:15] LABS: Albumin 2.6 g/dL (3.4-5.0); Calcium 8.3 mg/dL (8.5-10.1); Magnesium 2.4 mg/dL (1.6-2.6); Potassium 3.5 mmol/L (3.5-5.1)
[2020-10-22 12:22] LABS: BUN/Creatinine Ratio 27.1; Bilirubin, Total 0.3 mg/dL (0.2-1.0); Total Protein 7.1 g/dL (6.4-8.2)
[2020-10-22] MEDS ORDERED: MORPHINE SULF INJ 2 MG/ML SYRINGE 1ML IV PRN (15:15)
[2020-10-22] MEDS ORDERED: DOXYCYCLINE 100MG/250ML 250 ML IV ONE (15:15)
[2020-10-22] MEDS ORDERED: DEXTROSE (50%) 50ML SYRG IV PRN (15:15)
[2020-10-22] MEDS ORDERED: NITROGLYCERIN 0.4 MG SL TAB SL PRN (15:15)
[2020-10-22] MEDS ORDERED: ASCORBIC ACID 500 MG TAB PO ONE (15:30)
[2020-10-22] MEDS ORDERED: DexAMETHasone SOD PHOS 10MG/1ML VIAL INJ IV ONE (15:45)
[2020-10-22] MEDS: InsuLIN REG 1unit/0.01ml Soln (100units/ml) SC SCH ×2 (17:00→23:10)
[2020-10-22] MEDS: ACCU-CHEK COMFORT CURVE STRIP VI SCH ×2 (17:12→22:00)
[2020-10-22] MEDS ORDERED: REMDESIVIR PER PHARMACY IV SCH (17:15)
[2020-10-22] MEDS ORDERED: ONDANSETRON HCL 4 MG/2 ML VIAL IV PRN (20:30)
[2020-10-22] MEDS ORDERED: ONDANSETRON HCL 4 MG/2 ML VIAL ONE (20:35)
[2020-10-22] MEDS: MORPHINE SULF INJ 2 MG/ML SYRINGE 1ML IV PRN (20:47)
[2020-10-22] MEDS: METOPROLOL TARTRATE 50 MG TAB PO SCH (22:00)
[2020-10-22] MEDS: LIRAGLUTIDE 18 MG/3 ML SC SCH (22:00)
[2020-10-22 22:35] VITALS: BP 97/42
[2020-10-22 23:00] VITALS: BP 100/56
[2020-10-22] MEDS: GABAPENTIN 400 MG CAP PO SCH (23:08)
[2020-10-22] MEDS: ATORVASTATIN 20 MG TAB PO SCH (23:08)
[2020-10-22] MEDS: ALBUTEROL SULF HFA 90MCG INH 200DOSE IN SCH (23:31)
[2020-10-23] VITALS (10 sets, daily range): BP systolic 99–125; BP diastolic 46–78
[2020-10-23] MEDS: ACETAMINOPHEN 325 MG TAB PO PRN ×2 (03:40→12:40)
[2020-10-23 05:55] LABS: Basophils # (auto) 0 10 ^3/uL (0-0.2); Basophils % (auto) 0.1 % (0.0-2.0); Eosinophils # (auto) 0 10 ^3/uL (0-0.8); Hematocrit 36.1 % (36.0-46.0); Lymphocytes # (auto) 0.3 10 ^3/uL (0.4-5.4); Monocytes # (auto) 0.2 10 ^3/uL (0-1.3); Monocytes % (auto) 3.5 % (0.0-12.0); Neutrophils # (auto) 4.9 10 ^3/uL (1.6-8.6); Red Blood Cells 4.61 10^6/uL (4.0-5.20)
[2020-10-23 05:58] LABS: Hemoglobin 11.9 g/dL (12.2-16.2); Lymphocytes % (auto) 6.3 % (10.0-50.0); Mean Corpuscular Hemoglobin 25.8 pg (28.0-32.0); Mean Corpuscular Volume 78.3 fL (80.0-100.0); Neutrophils % (auto) 90.1 % (37.0-80.0); Platelet Count (auto) 218 10^3/uL (140-450); White Blood Cell 5.5 10^3/uL (4.4-10.8)
[2020-10-23] MEDS: ALBUTEROL SULF HFA 90MCG INH 200DOSE IN SCH ×3 (06:00→22:03)
[2020-10-23 06:14] LABS: Potassium 4.1 mmol/L (3.5-5.1)
[2020-10-23 06:21] LABS: BUN/Creatinine Ratio 35.9; Calcium 8.8 mg/dL (8.5-10.1); Magnesium 2.5 mg/dL (1.6-2.6)
[2020-10-23] MEDS: GABAPENTIN 400 MG CAP PO SCH ×3 (06:38→22:25)
[2020-10-23] MEDS: InsuLIN REG 1unit/0.01ml Soln (100units/ml) SC SCH ×4 (06:42→22:22)
[2020-10-23] MEDS: ACCU-CHEK COMFORT CURVE STRIP VI SCH ×4 (06:44→22:25)
[2020-10-23] MEDS: ZINC SULFATE 220mg CAP or TAB PO SCH (09:22)
[2020-10-23] MEDS: ASPirin 81 mg TAB PO SCH (09:22)
[2020-10-23] MEDS: glipiZIDE 5 MG TAB PO SCH (09:22)
[2020-10-23] MEDS: ENOXAPARIN SOD 40 MG/0.4 ML SYRINGE SC SCH (09:23)
[2020-10-23] MEDS: CHOLECALCIFEROL (VITD3) 2,000 UNIT CAP PO SCH (09:23)
[2020-10-23] MEDS: METOPROLOL TARTRATE 50 MG TAB PO SCH ×2 (09:23→22:24)
[2020-10-23] MEDS: LOSARTAN POTASSIUM 25 MG TAB PO SCH (09:23)
[2020-10-23] MEDS: amLODIPine BESYLATE 5 MG TAB PO SCH (09:24)
[2020-10-23] MEDS: MORPHINE SULF INJ 2 MG/ML SYRINGE 1ML IV PRN ×2 (09:24→16:01)
[2020-10-23] MEDS ORDERED: CHOLECALCIFEROL (VITD3) 1,000UNIT=25mCg TAB PO SCH (10:00)
[2020-10-23] MEDS ORDERED: DexAMETHasone SOD PHOS 10MG/1ML VIAL INJ IV SCH (10:00)
[2020-10-23] MEDS ORDERED: REMDESIVIR 200 MG in NS 210ml LOADING DOSE ADULT IV ONE (17:00)
[2020-10-23] MEDS: LIRAGLUTIDE 18 MG/3 ML SC SCH (22:00)
[2020-10-23] MEDS: ATORVASTATIN 20 MG TAB PO SCH (22:24)
[2020-10-24 04:54] VITALS: BP 118/71
[2020-10-24] MEDS: MORPHINE SULF INJ 2 MG/ML SYRINGE 1ML IV PRN ×2 (05:55→23:14)
[2020-10-24] MEDS: GABAPENTIN 400 MG CAP PO SCH ×3 (05:55→22:04)
[2020-10-24] MEDS: ACCU-CHEK COMFORT CURVE STRIP VI SCH ×4 (05:55→22:05)
[2020-10-24] MEDS: InsuLIN REG 1unit/0.01ml Soln (100units/ml) SC SCH ×4 (06:31→22:24)
[2020-10-24 06:58] LABS: Basophils # (auto) 0 10 ^3/uL (0-0.2); Eosinophils # (auto) 0 10 ^3/uL (0-0.8); Lymphocytes # (auto) 0.5 10 ^3/uL (0.4-5.4); Neutrophils # (auto) 8.7 10 ^3/uL (1.6-8.6); Red Cell Distribution Width 15.8 % (11.8-14.3); White Blood Cell 9.7 10^3/uL (4.4-10.8)
[2020-10-24 07:00] LABS: Basophils % (auto) 0.1 % (0.0-2.0); Hematocrit 37.7 % (36.0-46.0); Hemoglobin 12.6 g/dL (12.2-16.2); Lymphocytes % (auto) 5.5 % (10.0-50.0); Mean Corpuscular Hemoglobin 26.1 pg (28.0-32.0); Mean Corpuscular Hgb Conc. 33.4 g/dL (32.0-36.0); Mean Corpuscular Volume 78.2 fL (80.0-100.0); Monocytes # (auto) 0.5 10 ^3/uL (0-1.3); Monocytes % (auto) 5.4 % (0.0-12.0); Nucleated Red Blood Cells % 0.2 %; Platelet Count (auto) 308 10^3/uL (140-450); Red Blood Cells 4.82 10^6/uL (4.0-5.20)
[2020-10-24 07:12] LABS: Potassium 4.3 mmol/L (3.5-5.1)
[2020-10-24 07:17] LABS: BUN/Creatinine Ratio 35.1; Calcium 8.8 mg/dL (8.5-10.1); Magnesium 2.4 mg/dL (1.6-2.6)
[2020-10-24] MEDS: ALBUTEROL SULF HFA 90MCG INH 200DOSE IN SCH ×3 (07:19→22:53)
[2020-10-24 07:21] LABS: CRP High Sensitivity 13.6 mg/dL (< 0.3)
[2020-10-24] MEDS: glipiZIDE 5 MG TAB PO SCH (08:10)
[2020-10-24 08:54] VITALS: BP 110/57
[2020-10-24] MEDS: METOPROLOL TARTRATE 50 MG TAB PO SCH ×2 (10:00→22:21)
[2020-10-24] MEDS: amLODIPine BESYLATE 5 MG TAB PO SCH (10:00)
[2020-10-24] MEDS: LOSARTAN POTASSIUM 25 MG TAB PO SCH (10:00)
[2020-10-24] MEDS: ASPirin 81 mg TAB PO SCH (10:28)
[2020-10-24] MEDS: ZINC SULFATE 220mg CAP or TAB PO SCH (10:28)
[2020-10-24] MEDS: CHOLECALCIFEROL (VITD3) 2,000 UNIT CAP PO SCH (10:29)
[2020-10-24] MEDS: ENOXAPARIN SOD 40 MG/0.4 ML SYRINGE SC SCH (10:29)
[2020-10-24] MEDS: DexAMETHasone SOD PHOS 10MG/1ML VIAL INJ IV SCH (10:57)
[2020-10-24 12:54] VITALS: BP 124/67
[2020-10-24 17:00] VITALS: BP 113/67
[2020-10-24] MEDS: REMDESIVIR 100mg in NS 230ml DAILYx4DAYS (NO VENT) IV SCH (17:07)
[2020-10-24 22:00] VITALS: BP_SYST 110; BP_SYST 123; BP_DIAS 64; BP_DIAS 71
[2020-10-24] MEDS: LIRAGLUTIDE 18 MG/3 ML SC SCH (22:00)
[2020-10-24] MEDS: ATORVASTATIN 20 MG TAB PO SCH (22:04)
[2020-10-25 05:00] VITALS: BP 126/60
[2020-10-25] MEDS: GABAPENTIN 400 MG CAP PO SCH ×3 (06:04→22:36)
[2020-10-25] MEDS: ALBUTEROL SULF HFA 90MCG INH 200DOSE IN SCH ×3 (06:26→23:12)
[2020-10-25] MEDS: ACCU-CHEK COMFORT CURVE STRIP VI SCH ×4 (06:27→22:00)
[2020-10-25] MEDS: InsuLIN REG 1unit/0.01ml Soln (100units/ml) SC SCH ×4 (06:33→22:40)
[2020-10-25 07:50] LABS: Albumin 2.4 g/dL (3.4-5.0); BUN/Creatinine Ratio 42.9; Calcium 8.8 mg/dL (8.5-10.1); Potassium 3.9 mmol/L (3.5-5.1)
[2020-10-25 07:53] LABS: Bilirubin, Total 0.3 mg/dL (0.2-1.0); Total Protein 6.5 g/dL (6.4-8.2)
[2020-10-25] MEDS: DexAMETHasone SOD PHOS 10MG/1ML VIAL INJ IV SCH (08:38)
[2020-10-25] MEDS: glipiZIDE 5 MG TAB PO SCH (08:38)
[2020-10-25 08:39] VITALS: BP 132/70
[2020-10-25] MEDS: ASPirin 81 mg TAB PO SCH (08:39)
[2020-10-25] MEDS: ZINC SULFATE 220mg CAP or TAB PO SCH (08:39)
[2020-10-25] MEDS: LOSARTAN POTASSIUM 25 MG TAB PO SCH (08:39)
[2020-10-25] MEDS: ENOXAPARIN SOD 40 MG/0.4 ML SYRINGE SC SCH (08:40)
[2020-10-25] MEDS: amLODIPine BESYLATE 5 MG TAB PO SCH (08:40)
[2020-10-25] MEDS: CHOLECALCIFEROL (VITD3) 2,000 UNIT CAP PO SCH (08:40)
[2020-10-25] MEDS: METOPROLOL TARTRATE 50 MG TAB PO SCH ×2 (08:40→22:36)
[2020-10-25] MEDS: MORPHINE SULF INJ 2 MG/ML SYRINGE 1ML IV PRN ×2 (09:05→20:14)
[2020-10-25 12:57] VITALS: BP 117/63
[2020-10-25 16:46] VITALS: BP 107/54
[2020-10-25] MEDS: REMDESIVIR 100mg in NS 230ml DAILYx4DAYS (NO VENT) IV SCH (18:04)
[2020-10-25 20:23] VITALS: BP 107/54
[2020-10-25 22:00] VITALS: BP 123/65
[2020-10-25] MEDS: LIRAGLUTIDE 18 MG/3 ML SC SCH (22:00)
[2020-10-25] MEDS: ATORVASTATIN 20 MG TAB PO SCH (22:36)
[2020-10-26 05:00] VITALS: BP 128/69
[2020-10-26] MEDS: ALBUTEROL SULF HFA 90MCG INH 200DOSE IN SCH ×3 (06:21→21:41)
[2020-10-26] MEDS: GABAPENTIN 400 MG CAP PO SCH ×3 (06:36→22:17)
[2020-10-26] MEDS: InsuLIN REG 1unit/0.01ml Soln (100units/ml) SC SCH ×4 (06:38→22:12)
[2020-10-26] MEDS: ACCU-CHEK COMFORT CURVE STRIP VI SCH ×4 (06:39→22:17)
[2020-10-26 09:00] VITALS: BP 107/61
[2020-10-26] MEDS: ZINC SULFATE 220mg CAP or TAB PO SCH (10:13)
[2020-10-26] MEDS: glipiZIDE 5 MG TAB PO SCH (10:13)
[2020-10-26] MEDS: ASPirin 81 mg TAB PO SCH (10:13)
[2020-10-26] MEDS: DexAMETHasone SOD PHOS 10MG/1ML VIAL INJ IV SCH (10:13)
[2020-10-26] MEDS: ENOXAPARIN SOD 40 MG/0.4 ML SYRINGE SC SCH (10:14)
[2020-10-26] MEDS: METOPROLOL TARTRATE 50 MG TAB PO SCH ×2 (10:14→22:00)
[2020-10-26] MEDS: CHOLECALCIFEROL (VITD3) 2,000 UNIT CAP PO SCH (10:14)
[2020-10-26] MEDS: LOSARTAN POTASSIUM 25 MG TAB PO SCH (10:14)
[2020-10-26] MEDS: amLODIPine BESYLATE 5 MG TAB PO SCH (10:15)
[2020-10-26 10:47] LABS: Basophils # (auto) 0 10 ^3/uL (0-0.2); Eosinophils # (auto) 0 10 ^3/uL (0-0.8); Mean Corpuscular Hgb Conc. 32.6 g/dL (32.0-36.0); Monocytes # (auto) 0.7 10 ^3/uL (0-1.3); Neutrophils # (auto) 6.3 10 ^3/uL (1.6-8.6); White Blood Cell 7.6 10^3/uL (4.4-10.8)
[2020-10-26 10:49] LABS: Basophils % (auto) 0.1 % (0.0-2.0); Hemoglobin 12.4 g/dL (12.2-16.2); Lymphocytes # (auto) 0.7 10 ^3/uL (0.4-5.4); Lymphocytes % (auto) 8.7 % (10.0-50.0); Mean Corpuscular Hemoglobin 25.5 pg (28.0-32.0); Mean Corpuscular Volume 78.3 fL (80.0-100.0); Monocytes % (auto) 8.6 % (0.0-12.0); Neutrophils % (auto) 82.6 % (37.0-80.0); Platelet Count (auto) 345 10^3/uL (140-450); Red Blood Cells 4.85 10^6/uL (4.0-5.20); Red Cell Distribution Width 15.6 % (11.8-14.3)
[2020-10-26 11:08] LABS: Calcium 8.7 mg/dL (8.5-10.1); Magnesium 2.4 mg/dL (1.6-2.6); Potassium 3.7 mmol/L (3.5-5.1)
[2020-10-26 11:20] LABS: BUN/Creatinine Ratio 33.3; CRP High Sensitivity 3.39 mg/dL (< 0.3)
[2020-10-26 17:00] VITALS: BP 93/58
[2020-10-26] MEDS: REMDESIVIR 100mg in NS 230ml DAILYx4DAYS (NO VENT) IV SCH (18:16)
[2020-10-26] MEDS: LIRAGLUTIDE 18 MG/3 ML SC SCH (22:00)
[2020-10-26] MEDS: ATORVASTATIN 20 MG TAB PO SCH (22:18)
[2020-10-27 05:00] VITALS: BP 110/68
[2020-10-27] MEDS: ACETAMINOPHEN 325 MG TAB PO PRN (05:16)
[2020-10-27] MEDS: InsuLIN REG 1unit/0.01ml Soln (100units/ml) SC SCH ×4 (05:54→22:24)
[2020-10-27] MEDS: ACCU-CHEK COMFORT CURVE STRIP VI SCH ×4 (05:56→22:26)
[2020-10-27] MEDS: GABAPENTIN 400 MG CAP PO SCH ×3 (05:57→22:26)
[2020-10-27] MEDS: HYDROcodone-ACET 5/325MG TAB PO PRN (06:01)
[2020-10-27] MEDS: ALBUTEROL SULF HFA 90MCG INH 200DOSE IN SCH ×3 (06:20→22:00)
[2020-10-27 07:11] LABS: Potassium 3.7 mmol/L (3.5-5.1)
[2020-10-27 07:17] LABS: Albumin 2.4 g/dL (3.4-5.0); BUN/Creatinine Ratio 35.1; Bilirubin, Total 0.3 mg/dL (0.2-1.0); Calcium 8.7 mg/dL (8.5-10.1); Total Protein 6.3 g/dL (6.4-8.2)
[2020-10-27] MEDS: glipiZIDE 5 MG TAB PO SCH (08:15)
[2020-10-27 09:00] VITALS: BP 92/47
[2020-10-27] MEDS: ASPirin 81 mg TAB PO SCH (09:36)
[2020-10-27] MEDS: DexAMETHasone SOD PHOS 10MG/1ML VIAL INJ IV SCH (09:36)
[2020-10-27] MEDS: ZINC SULFATE 220mg CAP or TAB PO SCH (09:37)
[2020-10-27] MEDS: LOSARTAN POTASSIUM 25 MG TAB PO SCH (09:38)
[2020-10-27] MEDS: METOPROLOL TARTRATE 50 MG TAB PO SCH ×2 (09:38→22:00)
[2020-10-27] MEDS: amLODIPine BESYLATE 5 MG TAB PO SCH (09:39)
[2020-10-27] MEDS: CHOLECALCIFEROL (VITD3) 2,000 UNIT CAP PO SCH (09:39)
[2020-10-27] MEDS: ENOXAPARIN SOD 40 MG/0.4 ML SYRINGE SC SCH (09:39)
[2020-10-27 13:00] VITALS: BP 95/54
[2020-10-27 17:00] VITALS: BP 103/55
[2020-10-27] MEDS: REMDESIVIR 100mg in NS 230ml DAILYx4DAYS (NO VENT) IV SCH (17:55)
[2020-10-27 22:00] VITALS: BP 95/51
[2020-10-27] MEDS: LIRAGLUTIDE 18 MG/3 ML SC SCH (22:00)
[2020-10-27] MEDS: ATORVASTATIN 20 MG TAB PO SCH (22:27)
[2020-10-28 05:00] VITALS: BP 117/71
[2020-10-28] MEDS: InsuLIN REG 1unit/0.01ml Soln (100units/ml) SC SCH ×4 (05:49→21:54)
[2020-10-28] MEDS: ACCU-CHEK COMFORT CURVE STRIP VI SCH ×4 (05:49→21:55)
[2020-10-28] MEDS: GABAPENTIN 400 MG CAP PO SCH ×3 (05:50→22:01)
[2020-10-28] MEDS: ALBUTEROL SULF HFA 90MCG INH 200DOSE IN SCH ×3 (07:24→22:33)
[2020-10-28 09:27] VITALS: BP 124/58
[2020-10-28] MEDS: ASPirin 81 mg TAB PO SCH (11:55)
[2020-10-28] MEDS: DexAMETHasone SOD PHOS 10MG/1ML VIAL INJ IV SCH (11:55)
[2020-10-28] MEDS: ZINC SULFATE 220mg CAP or TAB PO SCH (11:55)
[2020-10-28] MEDS: amLODIPine BESYLATE 5 MG TAB PO SCH (11:56)
[2020-10-28] MEDS: LOSARTAN POTASSIUM 25 MG TAB PO SCH (11:56)
[2020-10-28] MEDS: METOPROLOL TARTRATE 50 MG TAB PO SCH ×2 (11:56→22:00)
[2020-10-28] MEDS: ENOXAPARIN SOD 40 MG/0.4 ML SYRINGE SC SCH (11:57)
[2020-10-28] MEDS: CHOLECALCIFEROL (VITD3) 2,000 UNIT CAP PO SCH (11:57)
[2020-10-28] MEDS: glipiZIDE 5 MG TAB PO SCH (11:58)
[2020-10-28] MEDS: HYDROcodone-ACET 5/325MG TAB PO PRN ×2 (12:32→22:02)
[2020-10-28 12:57] VITALS: BP 121/66
[2020-10-28 16:39] VITALS: BP 100/49
[2020-10-28] MEDS: LIRAGLUTIDE 18 MG/3 ML SC SCH (22:00)
[2020-10-28] MEDS: ATORVASTATIN 20 MG TAB PO SCH (22:01)
[2020-10-28 22:29] VITALS: BP 112/57
[2020-10-29 04:27] VITALS: BP 112/57
[2020-10-29 05:00] VITALS: BP 119/76
[2020-10-29] MEDS: ACCU-CHEK COMFORT CURVE STRIP VI SCH ×4 (05:49→21:21)
[2020-10-29] MEDS: InsuLIN REG 1unit/0.01ml Soln (100units/ml) SC SCH ×4 (05:49→21:19)
[2020-10-29] MEDS: GABAPENTIN 400 MG CAP PO SCH ×3 (05:50→21:21)
[2020-10-29] MEDS: ALBUTEROL SULF HFA 90MCG INH 200DOSE IN SCH ×3 (06:20→19:10)
[2020-10-29 06:58] LABS: Basophils # (auto) 0 10 ^3/uL (0-0.2); Eosinophils # (auto) 0 10 ^3/uL (0-0.8); Hematocrit 37.3 % (36.0-46.0); Hemoglobin 12.4 g/dL (12.2-16.2); Lymphocytes # (auto) 0.5 10 ^3/uL (0.4-5.4); Lymphocytes % (auto) 9.3 % (10.0-50.0); Mean Corpuscular Hemoglobin 25.8 pg (28.0-32.0); Mean Corpuscular Hgb Conc. 33.1 g/dL (32.0-36.0); Mean Corpuscular Volume 77.8 fL (80.0-100.0); Monocytes # (auto) 0.5 10 ^3/uL (0-1.3); Monocytes % (auto) 8.7 % (0.0-12.0); Neutrophils # (auto) 4.3 10 ^3/uL (1.6-8.6); Nucleated Red Blood Cells % 0.1 %; Platelet Count (auto) 453 10^3/uL (140-450); Red Cell Distribution Width 15.4 % (11.8-14.3); White Blood Cell 5.3 10^3/uL (4.4-10.8)
[2020-10-29 07:21] LABS: Potassium 4.4 mmol/L (3.5-5.1)
[2020-10-29 07:39] LABS: BUN/Creatinine Ratio 45.2; Calcium 8.7 mg/dL (8.5-10.1); Magnesium 2.5 mg/dL (1.6-2.6)
[2020-10-29 09:00] VITALS: BP 106/67
[2020-10-29] MEDS: glipiZIDE 5 MG TAB PO SCH (09:27)
[2020-10-29] MEDS: LOSARTAN POTASSIUM 25 MG TAB PO SCH (10:00)
[2020-10-29] MEDS: amLODIPine BESYLATE 5 MG TAB PO SCH (10:00)
[2020-10-29] MEDS: METOPROLOL TARTRATE 50 MG TAB PO SCH ×2 (10:00→22:00)
[2020-10-29] MEDS: DexAMETHasone SOD PHOS 10MG/1ML VIAL INJ IV SCH (11:28)
[2020-10-29] MEDS: ZINC SULFATE 220mg CAP or TAB PO SCH (11:29)
[2020-10-29] MEDS: ASPirin 81 mg TAB PO SCH (11:29)
[2020-10-29] MEDS: CHOLECALCIFEROL (VITD3) 2,000 UNIT CAP PO SCH (11:31)
[2020-10-29] MEDS: ENOXAPARIN SOD 40 MG/0.4 ML SYRINGE SC SCH (11:31)
[2020-10-29 13:00] VITALS: BP 115/59
[2020-10-29 17:00] VITALS: BP 100/57
[2020-10-29] MEDS: ATORVASTATIN 20 MG TAB PO SCH (21:21)
[2020-10-29] MEDS: LIRAGLUTIDE 18 MG/3 ML SC SCH (21:21)
[2020-10-29 22:00] VITALS: BP 103/54
[2020-10-30 05:00] VITALS: BP 120/66
[2020-10-30] MEDS: InsuLIN REG 1unit/0.01ml Soln (100units/ml) SC SCH ×4 (05:42→17:00)
[2020-10-30] MEDS: ACCU-CHEK COMFORT CURVE STRIP VI SCH ×6 (05:43→22:15)
[2020-10-30] MEDS: GABAPENTIN 400 MG CAP PO SCH ×3 (05:43→22:14)
[2020-10-30] MEDS: ALBUTEROL SULF HFA 90MCG INH 200DOSE IN SCH (06:38)
[2020-10-30] MEDS: glipiZIDE 5 MG TAB PO SCH (08:00)
[2020-10-30 08:36] VITALS: BP 104/56
[2020-10-30] MEDS: ACETAMINOPHEN 325 MG TAB PO PRN (09:00)
[2020-10-30] MEDS: amLODIPine BESYLATE 5 MG TAB PO SCH (10:00)
[2020-10-30] MEDS: LOSARTAN POTASSIUM 25 MG TAB PO SCH (10:00)
[2020-10-30] MEDS: DexAMETHasone SOD PHOS 10MG/1ML VIAL INJ IV SCH (10:26)
[2020-10-30] MEDS: ZINC SULFATE 220mg CAP or TAB PO SCH (10:27)
[2020-10-30] MEDS: ASPirin 81 mg TAB PO SCH (10:27)
[2020-10-30] MEDS: METOPROLOL TARTRATE 50 MG TAB PO SCH ×2 (10:28→22:17)
[2020-10-30] MEDS ORDERED: ALBUTEROL SULF HFA 90MCG INH 200DOSE IN PRN (10:30)
[2020-10-30] MEDS: ENOXAPARIN SOD 40 MG/0.4 ML SYRINGE SC SCH (10:30)
[2020-10-30] MEDS: CHOLECALCIFEROL (VITD3) 2,000 UNIT CAP PO SCH (10:30)
[2020-10-30 12:54] VITALS: BP 123/67
[2020-10-30] MEDS: HYDROcodone-ACET 5/325MG TAB PO PRN (16:17)
[2020-10-30] MEDS ORDERED: DEXTROSE (50%) 50ML SYRG IV PRN (17:00)
[2020-10-30 17:03] VITALS: BP 106/74
[2020-10-30 22:00] VITALS: BP 119/66
[2020-10-30] MEDS ORDERED: InsuLIN REG 1unit/0.01ml Soln (100units/ml) SC SCH (22:00)
[2020-10-30] MEDS: LIRAGLUTIDE 18 MG/3 ML SC SCH (22:00)
[2020-10-30] MEDS: ATORVASTATIN 20 MG TAB PO SCH (22:14)
[2020-10-31 05:00] VITALS: BP 127/68
[2020-10-31] MEDS: InsuLIN REG 1unit/0.01ml Soln (100units/ml) SC SCH ×3 (05:38→17:50)
[2020-10-31] MEDS: ACCU-CHEK COMFORT CURVE STRIP VI SCH ×6 (05:39→17:28)
[2020-10-31] MEDS: GABAPENTIN 400 MG CAP PO SCH ×2 (05:40→14:00)
[2020-10-31 06:04] LABS: Basophils # (auto) 0 10 ^3/uL (0-0.2); Eosinophils # (auto) 0 10 ^3/uL (0-0.8); Lymphocytes # (auto) 0.5 10 ^3/uL (0.4-5.4); Mean Corpuscular Volume 78.3 fL (80.0-100.0); Monocytes # (auto) 0.5 10 ^3/uL (0-1.3)
[2020-10-31 06:06] LABS: Basophils % (auto) 0.2 % (0.0-2.0); Hematocrit 37.9 % (36.0-46.0); Hemoglobin 12.3 g/dL (12.2-16.2); Lymphocytes % (auto) 9.1 % (10.0-50.0); Mean Corpuscular Hemoglobin 25.4 pg (28.0-32.0); Mean Corpuscular Hgb Conc. 32.5 g/dL (32.0-36.0); Monocytes % (auto) 9.9 % (0.0-12.0); Neutrophils # (auto) 4.3 10 ^3/uL (1.6-8.6); Neutrophils % (auto) 80.8 % (37.0-80.0); Platelet Count (auto) 420 10^3/uL (140-450); Red Blood Cells 4.85 10^6/uL (4.0-5.20); Red Cell Distribution Width 15.4 % (11.8-14.3); White Blood Cell 5.3 10^3/uL (4.4-10.8)
[2020-10-31 06:23] LABS: Calcium 8.5 mg/dL (8.5-10.1); Potassium 4.6 mmol/L (3.5-5.1)
[2020-10-31 06:26] LABS: BUN/Creatinine Ratio 46.9; Magnesium 2.6 mg/dL (1.6-2.6)
[2020-10-31] MEDS: glipiZIDE 5 MG TAB PO SCH (08:30)
[2020-10-31 08:57] VITALS: BP 120/61
[2020-10-31] MEDS: DexAMETHasone SOD PHOS 10MG/1ML VIAL INJ IV SCH (09:45)
[2020-10-31] MEDS: ASPirin 81 mg TAB PO SCH (09:46)
[2020-10-31] MEDS: ZINC SULFATE 220mg CAP or TAB PO SCH (09:46)
[2020-10-31] MEDS: LOSARTAN POTASSIUM 25 MG TAB PO SCH (09:47)
[2020-10-31] MEDS: amLODIPine BESYLATE 5 MG TAB PO SCH (09:48)
[2020-10-31] MEDS: CHOLECALCIFEROL (VITD3) 2,000 UNIT CAP PO SCH (09:48)
[2020-10-31] MEDS: METOPROLOL TARTRATE 50 MG TAB PO SCH (09:48)
[2020-10-31] MEDS: ENOXAPARIN SOD 40 MG/0.4 ML SYRINGE SC SCH (10:00)
[2020-10-31 12:59] VITALS: BP 121/55
[2020-10-31 16:45] VITALS: BP_SYST 107; BP_SYST 86; BP_DIAS 48; BP_DIAS 60
[2020-10-31 17:36] VITALS: BP 120/58
== END 2020-10-31 20:40 | disposition home or self-care (01) | DRG 177 ==
LOC: EDBD 10:13 → ER 10:13 → INTOOBSV 10:14 → TELE 10:14 → OBSVTOIN 10:14 → TELE-CENTR 20:35
PROVIDERS: ADMIT Internal Medicine; ATTEND Internal Medicine
PROC: XW033E5 Introduction of Remdesivir Anti-infective into Peripheral Vein, Percutaneous Approach, New Technology Group 5 (ICD-10-PCS; 2020-10-22)
PROC: XW13325 Transfusion of Convalescent Plasma (Nonautologous) into Peripheral Vein, Percutaneous Approach, New Technology Group 5 (ICD-10-PCS; principal; 2020-10-23)
DX: U07.1 COVID-19 (principal); J96.01 Acute respiratory failure with hypoxia; J12.89 Other viral pneumonia; I20.0 Unstable angina; J44.0 Chronic obstructive pulmonary disease with (acute) lower respiratory infection; I10 Essential (primary) hypertension; M19.90 Unspecified osteoarthritis, unspecified site; K21.9 Gastro-esophageal reflux disease without esophagitis; E11.65 Type 2 diabetes mellitus with hyperglycemia; E78.5 Hyperlipidemia, unspecified; Z66 Do not resuscitate; Z88.0 Allergy status to penicillin; Z88.2 Allergy status to sulfonamides; Z79.899 Other long term (current) drug therapy; Z82.49 Family history of ischemic heart disease and other diseases of the circulatory system; Z83.3 Family history of diabetes mellitus
CPT/HCPCS: 36415; 36430; 71045; 80048; 80053; 82728; 82962; 83615; 83735; 83880; 84443; 84484; 85025; 85379; 85610; 85730; 86141; 86850; 86900; 86901; 87040; 87081; 87426; 93005; 93970; 94640; 96365; 96366; 96367; 96372; 96375; 96376; 97163; G0378; J1100; J1815; J2405; J3490

== ENCOUNTER 2021-11-08 10:42 | Inpatient (IN) | payer OTHER, MEDICAID ==
[~2021-11-08] VITALS: Ht 157.5 cm; Wt 51.3 kg
[~2021-11-08 10:42] MED LIST changes: +DOCU1CAP22 PO; -DOCU1CAP31 PO
[2021-11-08] MEDS ORDERED: ASPirin 81 mg TAB PO ONE (11:00)
[2021-11-08 11:35] LABS: Basophils # (auto) 0.1 10 ^3/uL (0-0.2); Eosinophils # (auto) 0.1 10 ^3/uL (0-0.8); Hemoglobin 13.3 g/dL (12.2-16.2); Lymphocytes # (auto) 1.2 10 ^3/uL (0.4-5.4); Neutrophils # (auto) 1.6 10 ^3/uL (1.6-8.6); Nucleated Red Blood Cells % 0.1 %
[2021-11-08 11:37] LABS: Basophils % (auto) 2.4 % (0.0-2.0); Eosinophils % (auto) 2.9 % (0.0-7.0); Lymphocytes % (auto) 34.5 % (10.0-50.0); Mean Corpuscular Hemoglobin 25.2 pg (28.0-32.0); Mean Corpuscular Hgb Conc. 32.4 g/dL (32.0-36.0); Mean Corpuscular Volume 77.8 fL (80.0-100.0); Monocytes # (auto) 0.5 10 ^3/uL (0-1.3); Monocytes % (auto) 13.4 % (0.0-12.0); Neutrophils % (auto) 46.8 % (37.0-80.0); Red Blood Cells 5.26 10^6/uL (4.0-5.20); Red Cell Distribution Width 16.8 % (11.8-14.3); White Blood Cell 3.4 10^3/uL (4.4-10.8)
[2021-11-08 11:55] LABS: Albumin 3.9 g/dL (3.4-5.0); BUN/Creatinine Ratio 15.2; Calcium 8.7 mg/dL (8.5-10.1); Magnesium 2.5 mg/dL (1.6-2.6); Potassium 3.8 mmol/L (3.5-5.1)
[2021-11-08 11:58] LABS: Bilirubin, Total 0.5 mg/dL (0.2-1.0); Total Protein 7.4 g/dL (6.4-8.2)
[2021-11-08] MEDS ORDERED: DEXTROSE (50%) 50ML SYRG IV PRN (14:00)
[2021-11-08] MEDS ORDERED: MORPHINE SULFATE INJECTION 2 MG/ML SYRG IV PRN (14:00)
[2021-11-08] MEDS ORDERED: ALBUTEROL SULF HFA 90MCG INH 200DOSE IN PRN (14:00)
[2021-11-08] MEDS ORDERED: ACETAMINOPHEN 325 MG TAB PO PRN (14:00)
[2021-11-08] MEDS ORDERED: ONDANSETRON HCL 4 MG/2 ML VIAL IV PRN (14:00)
[2021-11-08] MEDS ORDERED: NITROGLYCERIN 0.4 MG SL TAB SL PRN (14:00)
[2021-11-08] MEDS ORDERED: DOCUSATE SOD 100 MG CAP PO PRN (14:05)
[2021-11-08] MEDS ORDERED: IOHEXOL 350 MG/ML 100ML IJ ONE ×2 (15:57→20:35)
[2021-11-08] MEDS ORDERED: ALBUTEROL SULF 2.5 MG/0.5ML(0.5%) NEB SOLN NEB ONE (18:00)
[2021-11-08] MEDS ORDERED: ATORVASTATIN 20 MG TAB PO SCH (22:00)
[2021-11-08] MEDS: GABAPENTIN 400 MG CAP PO SCH (22:03)
[2021-11-09] MEDS: InsuLIN REG 1unit/0.01ml Soln (100units/ml) SC SCH ×4 (00:27→12:47)
[2021-11-09] MEDS: GABAPENTIN 400 MG CAP PO SCH ×3 (00:48→15:17)
[2021-11-09] MEDS: PANTOPRAZOLE 40 MG TAB PO SCH ×2 (00:48→10:16)
[2021-11-09] MEDS: METOPROLOL TARTRATE 50 MG TAB PO SCH ×2 (00:48→10:24)
[2021-11-09] MEDS: ACCU-CHEK COMFORT CURVE STRIP VI SCH ×4 (00:49→12:43)
[2021-11-09 01:03] VITALS: BP 123/65
[2021-11-09] MEDS ORDERED: LOSA-69 PO (01:28)
[2021-11-09] MEDS ORDERED: CANA100T OR (01:31)
[2021-11-09] MEDS ORDERED: [UNRECOGNIZED DRUG - CODE] PO (01:48)
[2021-11-09] MEDS ORDERED: GLIP5TAB12 PO (01:48)
[2021-11-09 05:00] VITALS: BP 126/63
[2021-11-09 09:00] VITALS: BP 108/48
[2021-11-09] MEDS ORDERED: LOSARTAN POTASSIUM 25 MG TAB PO SCH (10:00)
[2021-11-09] MEDS ORDERED: ASPirin 81 mg TAB PO SCH (10:00)
[2021-11-09] MEDS ORDERED: amLODIPine BESYLATE 5 MG TAB PO SCH (10:00)
[2021-11-09] MEDS ORDERED: ENOXAPARIN SOD 40 MG/0.4 ML SYRINGE SC SCH (10:00)
[2021-11-09 13:27] VITALS: BP 116/70
[2021-11-09] MEDS ORDERED: PANT40T PO (16:45)
[2021-11-09] MEDS ORDERED: SUCR1SUS5 PO (16:45)
[2021-11-09 19:19] VITALS: BP 120/60
== END 2021-11-09 19:52 | disposition home or self-care (01) | DRG 392 ==
LOC: ER 10:42 → TELE 13:46 → TELE-WESTW 22:55
PROVIDERS: ADMIT Hospitalist; ATTEND Hospitalist
DX: K21.9 Gastro-esophageal reflux disease without esophagitis (principal); K29.70 Gastritis, unspecified, without bleeding; E11.40 Type 2 diabetes mellitus with diabetic neuropathy, unspecified; I11.9 Hypertensive heart disease without heart failure; I25.10 Atherosclerotic heart disease of native coronary artery without angina pectoris; J44.9 Chronic obstructive pulmonary disease, unspecified; K20.90 Esophagitis, unspecified without bleeding; Z20.822 Contact with and (suspected) exposure to COVID-19; F10.20 Alcohol dependence, uncomplicated; M19.90 Unspecified osteoarthritis, unspecified site; Z82.49 Family history of ischemic heart disease and other diseases of the circulatory system; Z83.3 Family history of diabetes mellitus; Z88.0 Allergy status to penicillin; Z88.2 Allergy status to sulfonamides
CPT/HCPCS: 36415; 71046; 71275; 80053; 82962; 83735; 83880; 84484; 85025; 87426; 93005; 93306; 96374; G0378; J1815; J2405

== ENCOUNTER 2023-04-14 08:09 | Inpatient (IN) | payer OTHER, MEDICAID ==
[~2023-04-14] VITALS: Ht 154.9 cm; Wt 81.3 kg
[~2023-04-14 08:09] MED LIST changes: +LOSA-69 PO; +PANT40T PO; +SUCR1SUS5 PO; +[UNRECOGNIZED DRUG - CODE] PO
[2023-04-14] MEDS ORDERED: MECLIZINE HCL 25 MG TAB PO ONE (08:30)
[2023-04-14 08:51] LABS: Eosinophils # (auto) 0.2 10 ^3/uL (0-0.8); Hemoglobin 13.7 g/dL (12.2-16.2); Lymphocytes # (auto) 1.5 10 ^3/uL (0.4-5.4); Mean Corpuscular Hemoglobin 24.6 pg (28.0-32.0); Mean Corpuscular Volume 77.3 fL (80.0-100.0); White Blood Cell 3.8 10^3/uL (4.4-10.8)
[2023-04-14 08:53] LABS: Basophils # (auto) 0 10 ^3/uL (0-0.2); Basophils % (auto) 0.5 % (0.0-2.0); Eosinophils % (auto) 4.2 % (0.0-7.0); Hematocrit 42.9 % (36.0-46.0); Lymphocytes % (auto) 39.8 % (10.0-50.0); Mean Corpuscular Hgb Conc. 31.9 g/dL (32.0-36.0); Monocytes # (auto) 0.3 10 ^3/uL (0-1.3); Monocytes % (auto) 8.8 % (0.0-12.0); Neutrophils # (auto) 1.8 10 ^3/uL (1.6-8.6); Neutrophils % (auto) 46.7 % (37.0-80.0); Nucleated Red Blood Cells % 0.1 %; Red Blood Cells 5.55 10^6/uL (4.0-5.20); Red Cell Distribution Width 16.7 % (11.8-14.3)
[2023-04-14 09:09] LABS: Albumin 4.4 g/dL (3.4-5.0); Magnesium 2.3 mg/dL (1.6-2.6); Potassium 3.9 mmol/L (3.5-5.1)
[2023-04-14 09:11] LABS: INR 0.94 (0.9-1.15); Partial Thromboplastin Time 27.2 sec (24.6-33.4)
[2023-04-14 09:14] LABS: BUN/Creatinine Ratio 14.6 (10.0-20.0); Bilirubin, Total 0.5 mg/dL (0.2-1.0); Total Protein 7.6 g/dL (6.4-8.2)
[2023-04-14 10:45] LABS: Urine Bacteria FEW /hpf (None Seen); Urine Blood Negative /uL (Negative); Urine Specific Gravity 1.009 (1.001-1.035); Urine WBC 1 /hpf (0 - 5)
[2023-04-14] MEDS ORDERED: ONDANSETRON HCL 4 MG/2 ML VIAL IV PRN (11:30)
[2023-04-14] MEDS ORDERED: HYDROcodone-ACET 5/325MG TAB PO PRN (11:30)
[2023-04-14] MEDS ORDERED: NITROGLYCERIN 0.4 MG SL TAB SL PRN (11:30)
[2023-04-14] MEDS: InsuLIN REG 1unit/0.01ml Soln (100units/ml) SC SCH ×3 (11:30→21:46)
[2023-04-14] MEDS ORDERED: DEXTROSE (50%) 50ML SYRG IV PRN (11:30)
[2023-04-14] MEDS: ACCU-CHEK COMFORT CURVE STRIP VI SCH ×3 (11:30→21:45)
[2023-04-14] MEDS ORDERED: MORPHINE SULFATE INJ 2 MG/ml SYRG IV PRN (11:30)
[2023-04-14] MEDS ORDERED: GABAPENTIN 300 MG CAP PO SCH (14:00)
[2023-04-14] MEDS: SODIUM CHLOR 0.9% PF (SALINE LOCK) 10ML VIAL/SYR IV SCH ×2 (14:11→21:45)
[2023-04-14] MEDS: GABAPENTIN 400 MG CAP PO SCH (21:45)
[2023-04-14] MEDS: ATORVASTATIN 20 MG TAB PO SCH (21:45)
[2023-04-14] MEDS: METOPROLOL TARTRATE 50 MG TAB PO SCH (21:48)
[2023-04-14] MEDS: ACETAMINOPHEN 325 MG TAB PO PRN (23:39)
[2023-04-15 04:41] LABS: Basophils # (auto) 0.1 10 ^3/uL (0-0.2); Eosinophils # (auto) 0.2 10 ^3/uL (0-0.8); Lymphocytes # (auto) 2.2 10 ^3/uL (0.4-5.4); Monocytes # (auto) 0.6 10 ^3/uL (0-1.3); Neutrophils # (auto) 2.2 10 ^3/uL (1.6-8.6); Nucleated Red Blood Cells % 0.1 %; White Blood Cell 5.2 10^3/uL (4.4-10.8)
[2023-04-15 04:44] LABS: Basophils % (auto) 1.3 % (0.0-2.0); Eosinophils % (auto) 4.3 % (0.0-7.0); Hematocrit 38.4 % (36.0-46.0); Hemoglobin 12.4 g/dL (12.2-16.2); Lymphocytes % (auto) 41.2 % (10.0-50.0); Mean Corpuscular Hemoglobin 24.9 pg (28.0-32.0); Mean Corpuscular Hgb Conc. 32.2 g/dL (32.0-36.0); Mean Corpuscular Volume 77.3 fL (80.0-100.0); Monocytes % (auto) 10.9 % (0.0-12.0); Neutrophils % (auto) 42.3 % (37.0-80.0); Red Blood Cells 4.97 10^6/uL (4.0-5.20); Red Cell Distribution Width 16.1 % (11.8-14.3)
[2023-04-15 04:55] LABS: Albumin 3.6 g/dL (3.4-5.0); Calcium 9.3 mg/dL (8.5-10.1); Potassium 4.1 mmol/L (3.5-5.1)
[2023-04-15 04:59] LABS: BUN/Creatinine Ratio 37.5 (10.0-20.0); Bilirubin, Total 0.4 mg/dL (0.2-1.0); Total Protein 6.5 g/dL (6.4-8.2)
[2023-04-15] MEDS: SODIUM CHLOR 0.9% PF (SALINE LOCK) 10ML VIAL/SYR IV SCH ×2 (05:56→13:46)
[2023-04-15] MEDS: GABAPENTIN 400 MG CAP PO SCH ×3 (06:40→22:56)
[2023-04-15] MEDS: ACCU-CHEK COMFORT CURVE STRIP VI SCH ×4 (06:43→22:57)
[2023-04-15] MEDS: InsuLIN REG 1unit/0.01ml Soln (100units/ml) SC SCH ×4 (06:54→23:16)
[2023-04-15] MEDS: glipiZIDE 5 MG TAB PO SCH (06:54)
[2023-04-15 08:35] VITALS: BP 125/67
[2023-04-15 09:00] VITALS: BP 125/67
[2023-04-15] MEDS: METOPROLOL TARTRATE 50 MG TAB PO SCH ×2 (09:47→23:01)
[2023-04-15] MEDS: CHOLECALCIFEROL (VITD3) 1,000UNIT=25mCg TAB PO SCH (09:47)
[2023-04-15] MEDS: LOSARTAN POTASSIUM 50 MG TAB PO SCH (09:48)
[2023-04-15] MEDS: EMPAGLIFLOZIN 10 MG TAB PO SCH (09:48)
[2023-04-15] MEDS: ASPirin 81 mg TAB PO SCH (09:48)
[2023-04-15] MEDS ORDERED: amLODIPine BESYLATE 5 MG TAB PO SCH (10:00)
[2023-04-15] MEDS: ACETAMINOPHEN 325 MG TAB PO PRN (10:03)
[2023-04-15] MEDS ORDERED: ACETAMINOPHEN 500 MG TAB PO ONE (10:30)
[2023-04-15 13:00] VITALS: BP 116/48
[2023-04-15 17:00] VITALS: BP 132/52
[2023-04-15 22:00] VITALS: BP 127/62
[2023-04-15] MEDS: ATORVASTATIN 20 MG TAB PO SCH (22:56)
[2023-04-16] VITALS (7 sets, daily range): BP systolic 102–152; BP diastolic 59–83
[2023-04-16] MEDS: SODIUM CHLOR 0.9% PF (SALINE LOCK) 10ML VIAL/SYR IV SCH ×4 (06:21→22:11)
[2023-04-16] MEDS: ACCU-CHEK COMFORT CURVE STRIP VI SCH ×4 (06:21→22:17)
[2023-04-16] MEDS: GABAPENTIN 400 MG CAP PO SCH ×3 (06:21→22:13)
[2023-04-16] MEDS: InsuLIN REG 1unit/0.01ml Soln (100units/ml) SC SCH ×4 (06:35→22:50)
[2023-04-16 07:03] LABS: Basophils # (auto) 0.1 10 ^3/uL (0-0.2); Eosinophils # (auto) 0.3 10 ^3/uL (0-0.8); Neutrophils # (auto) 2.1 10 ^3/uL (1.6-8.6)
[2023-04-16 07:06] LABS: Basophils % (auto) 1.3 % (0.0-2.0); Eosinophils % (auto) 5.6 % (0.0-7.0); Hemoglobin 12.6 g/dL (12.2-16.2); Lymphocytes # (auto) 2.6 10 ^3/uL (0.4-5.4); Lymphocytes % (auto) 46.2 % (10.0-50.0); Mean Corpuscular Hemoglobin 24.9 pg (28.0-32.0); Mean Corpuscular Hgb Conc. 32.2 g/dL (32.0-36.0); Mean Corpuscular Volume 77.2 fL (80.0-100.0); Monocytes # (auto) 0.5 10 ^3/uL (0-1.3); Monocytes % (auto) 9.2 % (0.0-12.0); Neutrophils % (auto) 37.7 % (37.0-80.0); Nucleated Red Blood Cells % 0.1 %; Red Blood Cells 5.05 10^6/uL (4.0-5.20); Red Cell Distribution Width 16.3 % (11.8-14.3); White Blood Cell 5.7 10^3/uL (4.4-10.8)
[2023-04-16] MEDS: glipiZIDE 5 MG TAB PO SCH (07:10)
[2023-04-16 07:42] LABS: BUN/Creatinine Ratio 38.6 (10.0-20.0); Calcium 9.1 mg/dL (8.5-10.1); Potassium 3.7 mmol/L (3.5-5.1)
[2023-04-16] MEDS: EMPAGLIFLOZIN 10 MG TAB PO SCH (09:26)
[2023-04-16] MEDS: ASPirin 81 mg TAB PO SCH (09:27)
[2023-04-16] MEDS: METOPROLOL TARTRATE 50 MG TAB PO SCH ×2 (09:27→22:13)
[2023-04-16] MEDS: CHOLECALCIFEROL (VITD3) 1,000UNIT=25mCg TAB PO SCH (09:27)
[2023-04-16] MEDS: LOSARTAN POTASSIUM 50 MG TAB PO SCH (09:27)
[2023-04-16] MEDS: ACETAMINOPHEN 500 MG TAB PO PRN (12:23)
[2023-04-16] MEDS: ATORVASTATIN 20 MG TAB PO SCH (22:14)
[2023-04-17] MEDS: GABAPENTIN 400 MG CAP PO SCH ×3 (05:55→21:54)
[2023-04-17] MEDS: ACCU-CHEK COMFORT CURVE STRIP VI SCH ×4 (05:56→21:54)
[2023-04-17] MEDS: SODIUM CHLOR 0.9% PF (SALINE LOCK) 10ML VIAL/SYR IV SCH ×3 (05:56→21:54)
[2023-04-17] MEDS: InsuLIN REG 1unit/0.01ml Soln (100units/ml) SC SCH ×4 (06:10→22:11)
[2023-04-17] MEDS: glipiZIDE 5 MG TAB PO SCH (07:11)
[2023-04-17 08:00] VITALS: BP 137/53
[2023-04-17] MEDS: EMPAGLIFLOZIN 10 MG TAB PO SCH (08:43)
[2023-04-17] MEDS: LOSARTAN POTASSIUM 50 MG TAB PO SCH (08:43)
[2023-04-17] MEDS: ASPirin 81 mg TAB PO SCH (08:44)
[2023-04-17] MEDS: ACETAMINOPHEN 500 MG TAB PO PRN (08:44)
[2023-04-17] MEDS: METOPROLOL TARTRATE 50 MG TAB PO SCH ×2 (08:45→21:55)
[2023-04-17] MEDS: CHOLECALCIFEROL (VITD3) 1,000UNIT=25mCg TAB PO SCH (08:49)
[2023-04-17 09:00] VITALS: BP 137/53
[2023-04-17] MEDS: DOCUSATE SOD 100 MG CAP PO PRN (09:28)
[2023-04-17 13:00] VITALS: BP_SYST 131; BP_SYST 96; BP_DIAS 49; BP_DIAS 50
[2023-04-17 17:00] VITALS: BP 134/50
[2023-04-17] MEDS: ATORVASTATIN 20 MG TAB PO SCH (21:54)
[2023-04-17 22:18] VITALS: BP 139/75
[2023-04-18 04:54] VITALS: BP 117/86
[2023-04-18] MEDS: GABAPENTIN 400 MG CAP PO SCH ×3 (05:43→22:22)
[2023-04-18] MEDS: SODIUM CHLOR 0.9% PF (SALINE LOCK) 10ML VIAL/SYR IV SCH ×3 (05:44→22:29)
[2023-04-18] MEDS ORDERED: IOHEXOL 300 MG/ML 100ML BOTTLE IJ ONE (06:12)
[2023-04-18] MEDS: InsuLIN REG 1unit/0.01ml Soln (100units/ml) SC SCH ×4 (06:43→22:36)
[2023-04-18] MEDS: glipiZIDE 5 MG TAB PO SCH (07:01)
[2023-04-18] MEDS: ACCU-CHEK COMFORT CURVE STRIP VI SCH ×4 (07:01→22:00)
[2023-04-18 08:00] VITALS: BP 124/63
[2023-04-18] MEDS: ASPirin 81 mg TAB PO SCH (09:19)
[2023-04-18] MEDS: DOCUSATE SOD 100 MG CAP PO PRN (09:19)
[2023-04-18] MEDS: CHOLECALCIFEROL (VITD3) 1,000UNIT=25mCg TAB PO SCH (09:19)
[2023-04-18] MEDS: EMPAGLIFLOZIN 10 MG TAB PO SCH (09:20)
[2023-04-18] MEDS: METOPROLOL TARTRATE 50 MG TAB PO SCH ×2 (09:20→22:23)
[2023-04-18] MEDS: LOSARTAN POTASSIUM 50 MG TAB PO SCH (09:20)
[2023-04-18 12:00] VITALS: BP 136/50
[2023-04-18] MEDS ORDERED: GADOTERATE MEG 10 MMOL/20ml INJ (0.5MMOL/ml) IV ONE (13:42)
[2023-04-18 16:00] VITALS: BP 131/56
[2023-04-18] MEDS: ACETAMINOPHEN 500 MG TAB PO PRN (21:13)
[2023-04-18 22:00] VITALS: BP 154/73
[2023-04-18] MEDS: ATORVASTATIN 20 MG TAB PO SCH (22:22)
[2023-04-19 05:00] VITALS: BP 116/61
[2023-04-19] MEDS: GABAPENTIN 400 MG CAP PO SCH ×3 (06:00→22:20)
[2023-04-19] MEDS: glipiZIDE 5 MG TAB PO SCH (06:03)
[2023-04-19] MEDS: InsuLIN REG 1unit/0.01ml Soln (100units/ml) SC SCH ×4 (06:03→22:17)
[2023-04-19] MEDS: ACCU-CHEK COMFORT CURVE STRIP VI SCH ×4 (06:04→22:32)
[2023-04-19] MEDS: SODIUM CHLOR 0.9% PF (SALINE LOCK) 10ML VIAL/SYR IV SCH ×3 (06:04→22:00)
[2023-04-19 06:16] LABS: Basophils # (auto) 0.1 10 ^3/uL (0-0.2); Eosinophils # (auto) 0.3 10 ^3/uL (0-0.8); Hemoglobin 12.3 g/dL (12.2-16.2); Mean Corpuscular Hemoglobin 24.6 pg (28.0-32.0); Monocytes # (auto) 0.6 10 ^3/uL (0-1.3); Neutrophils # (auto) 2.4 10 ^3/uL (1.6-8.6); Nucleated Red Blood Cells % 0.2 %; Red Blood Cells 5.02 10^6/uL (4.0-5.20)
[2023-04-19 06:19] LABS: Eosinophils % (auto) 4.9 % (0.0-7.0); Hematocrit 38.6 % (36.0-46.0); Lymphocytes # (auto) 2.1 10 ^3/uL (0.4-5.4); Lymphocytes % (auto) 39.2 % (10.0-50.0); Mean Corpuscular Hgb Conc. 31.9 g/dL (32.0-36.0); Monocytes % (auto) 11.1 % (0.0-12.0); Neutrophils % (auto) 43.8 % (37.0-80.0); Red Cell Distribution Width 16.3 % (11.8-14.3); White Blood Cell 5.4 10^3/uL (4.4-10.8)
[2023-04-19 06:31] LABS: Potassium 3.7 mmol/L (3.5-5.1)
[2023-04-19 06:33] LABS: BUN/Creatinine Ratio 44.4 (10.0-20.0)
[2023-04-19 08:00] VITALS: BP 137/61
[2023-04-19] MEDS: ASPirin 81 mg TAB PO SCH (09:57)
[2023-04-19] MEDS: EMPAGLIFLOZIN 10 MG TAB PO SCH (09:57)
[2023-04-19] MEDS: ACETAMINOPHEN 500 MG TAB PO PRN (09:58)
[2023-04-19] MEDS: METOPROLOL TARTRATE 50 MG TAB PO SCH ×2 (09:58→22:21)
[2023-04-19] MEDS: LOSARTAN POTASSIUM 50 MG TAB PO SCH (09:59)
[2023-04-19] MEDS: CHOLECALCIFEROL (VITD3) 1,000UNIT=25mCg TAB PO SCH (09:59)
[2023-04-19 12:00] VITALS: BP 120/58
[2023-04-19 16:00] VITALS: BP 140/68
[2023-04-19 22:00] VITALS: BP 149/87
[2023-04-19] MEDS: ATORVASTATIN 20 MG TAB PO SCH (22:20)
[2023-04-20 05:00] VITALS: BP 105/43
[2023-04-20] MEDS: SODIUM CHLOR 0.9% PF (SALINE LOCK) 10ML VIAL/SYR IV SCH (06:00)
[2023-04-20] MEDS: GABAPENTIN 400 MG CAP PO SCH (06:44)
[2023-04-20] MEDS: glipiZIDE 5 MG TAB PO SCH (06:44)
[2023-04-20] MEDS: InsuLIN REG 1unit/0.01ml Soln (100units/ml) SC SCH ×2 (06:46→11:36)
[2023-04-20] MEDS: ACCU-CHEK COMFORT CURVE STRIP VI SCH ×2 (06:46→11:40)
[2023-04-20 06:52] LABS: Basophils # (auto) 0.1 10 ^3/uL (0-0.2); Basophils % (auto) 1.6 % (0.0-2.0); Eosinophils # (auto) 0.3 10 ^3/uL (0-0.8); Eosinophils % (auto) 5.8 % (0.0-7.0); Hematocrit 38.4 % (36.0-46.0); Hemoglobin 12.2 g/dL (12.2-16.2); Lymphocytes # (auto) 2.2 10 ^3/uL (0.4-5.4); Lymphocytes % (auto) 43.3 % (10.0-50.0); Mean Corpuscular Hemoglobin 24.6 pg (28.0-32.0); Mean Corpuscular Hgb Conc. 31.8 g/dL (32.0-36.0); Mean Corpuscular Volume 77.2 fL (80.0-100.0); Monocytes # (auto) 0.5 10 ^3/uL (0-1.3); Monocytes % (auto) 10.3 % (0.0-12.0); Nucleated Red Blood Cells % 0.2 %; Red Blood Cells 4.97 10^6/uL (4.0-5.20); Red Cell Distribution Width 16.4 % (11.8-14.3); White Blood Cell 5.1 10^3/uL (4.4-10.8)
[2023-04-20 07:10] LABS: BUN/Creatinine Ratio 43.2 (10.0-20.0); Calcium 9.1 mg/dL (8.5-10.1)
[2023-04-20 08:00] VITALS: BP 137/61
[2023-04-20] MEDS: CHOLECALCIFEROL (VITD3) 1,000UNIT=25mCg TAB PO SCH (08:49)
[2023-04-20] MEDS: EMPAGLIFLOZIN 10 MG TAB PO SCH (08:49)
[2023-04-20] MEDS: LOSARTAN POTASSIUM 50 MG TAB PO SCH (08:50)
[2023-04-20] MEDS: METOPROLOL TARTRATE 50 MG TAB PO SCH (08:52)
[2023-04-20] MEDS: ASPirin 81 mg TAB PO SCH (08:52)
[2023-04-20] MEDS: DOCUSATE SOD 100 MG CAP PO PRN (08:53)
[2023-04-20] MEDS: ACETAMINOPHEN 500 MG TAB PO PRN (08:53)
[2023-04-20 09:56] VITALS: BP 121/57
[2023-04-20 11:14] VITALS: BP 121/57
[2023-04-20 12:29] VITALS: BP 119/51
== END 2023-04-20 12:17 | disposition home or self-care (01) | DRG 93 ==
LOC: EDBD 08:09 → ER 08:09 → TELE 11:36 → TELE-CENTR 04-15 08:42
PROVIDERS: ADMIT Nurse Practitioner Family; ATTEND Internal Medicine Pulmonary Disease
DX: R27.0 Ataxia, unspecified (principal); R55 Syncope and collapse; E11.9 Type 2 diabetes mellitus without complications; R07.9 Chest pain, unspecified; Z20.822 Contact with and (suspected) exposure to COVID-19; E78.5 Hyperlipidemia, unspecified; I10 Essential (primary) hypertension; J44.9 Chronic obstructive pulmonary disease, unspecified; M19.90 Unspecified osteoarthritis, unspecified site; F32.A Depression, unspecified; F41.9 Anxiety disorder, unspecified; K21.9 Gastro-esophageal reflux disease without esophagitis; D16.9 Benign neoplasm of bone and articular cartilage, unspecified; K57.90 Diverticulosis of intestine, part unspecified, without perforation or abscess without bleeding; E04.1 Nontoxic single thyroid nodule; I25.119 Atherosclerotic heart disease of native coronary artery with unspecified angina pectoris; E66.01 Morbid (severe) obesity due to excess calories; Z82.49 Family history of ischemic heart disease and other diseases of the circulatory system; Z83.3 Family history of diabetes mellitus; Z90.11 Acquired absence of right breast and nipple; Z90.710 Acquired absence of both cervix and uterus; Z88.0 Allergy status to penicillin; Z88.2 Allergy status to sulfonamides; Z85.3 Personal history of malignant neoplasm of breast; Z68.33 Body mass index [BMI] 33.0-33.9, adult
CPT/HCPCS: 36415; 70450; 70551; 70553; 71045; 71260; 74177; 80048; 80053; 81001; 82607; 82962; 83735; 83880; 84439; 84443; 84484; 85025; 85610; 85730; 87426; 93005; 97163; G0378; J1815

== ENCOUNTER 2023-04-28 13:00 | Emergency (ER) | payer OTHER, MEDICAID ==
[~2023-04-28] VITALS: Ht 157.5 cm; Wt 49.5 kg
[~2023-04-28 13:00] MED LIST changes: -AMLO-496 PO; +AMLO1TAB23 PO; +DOCU-209 PO; -DOCU1CAP22 PO; +GABA-1251 PO; -GABA400C11 PO; -LOSA-69 PO; -LOSA25TA38 PO; +LOSA50TA46 PO; -SIMV-8 PO; +SIMV20TA20 PO
[2023-04-28 13:56] LABS: Basophils # (auto) 0.1 10 ^3/uL (0-0.2); Eosinophils # (auto) 0.1 10 ^3/uL (0-0.8); Monocytes # (auto) 0.3 10 ^3/uL (0-1.3); Nucleated Red Blood Cells % 0.1 %; Red Blood Cells 5.18 10^6/uL (4.0-5.20)
[2023-04-28 13:58] LABS: Basophils % (auto) 1.1 % (0.0-2.0); Eosinophils % (auto) 1.4 % (0.0-7.0); Hematocrit 39.6 % (36.0-46.0); Hemoglobin 12.7 g/dL (12.2-16.2); Lymphocytes # (auto) 2.1 10 ^3/uL (0.4-5.4); Lymphocytes % (auto) 37.4 % (10.0-50.0); Mean Corpuscular Hemoglobin 24.6 pg (28.0-32.0); Mean Corpuscular Hgb Conc. 32.2 g/dL (32.0-36.0); Mean Corpuscular Volume 76.5 fL (80.0-100.0); Monocytes % (auto) 5.5 % (0.0-12.0); Neutrophils # (auto) 3.1 10 ^3/uL (1.6-8.6); Neutrophils % (auto) 54.6 % (37.0-80.0); Red Cell Distribution Width 16.6 % (11.8-14.3); White Blood Cell 5.7 10^3/uL (4.4-10.8)
[2023-04-28 14:10] LABS: Albumin 4.4 g/dL (3.4-5.0); Calcium 9.1 mg/dL (8.5-10.1); Magnesium 2.2 mg/dL (1.6-2.6); Potassium 4.1 mmol/L (3.5-5.1)
[2023-04-28 14:13] LABS: BUN/Creatinine Ratio 10.4 (10.0-20.0); Bilirubin, Total 0.6 mg/dL (0.2-1.0); Total Protein 7.5 g/dL (6.4-8.2)
[2023-04-28 14:40] LABS: Urine Bacteria NONE SEEN /hpf (None Seen); Urine Blood Negative /uL (Negative); Urine Specific Gravity 1.013 (1.001-1.035); Urine WBC <1 /hpf (0 - 5)
[2023-04-28] MEDS ORDERED: DOCU-94 PO (16:24)
[2023-04-28] MEDS ORDERED: MILK OF MAGNESIA 30ML SUSP PO ONE (16:30)
[2023-04-28] MEDS ORDERED: POLYETHYLENE GLYCOL 17 GM PWDR PO ONE (16:30)
[2023-04-28] MEDS ORDERED: DOCUSATE SOD 100 MG CAP PO ONE (16:30)
[2023-04-28] MEDS ORDERED: SENNA 8.6 MG TAB PO ONE (16:30)
[2023-04-28 16:56] VITALS: BP 124/45
== END 2023-04-28 16:59 | disposition home or self-care (01) ==
LOC: ER 13:00
DX: K59.00 Constipation, unspecified (principal); J44.9 Chronic obstructive pulmonary disease, unspecified; E11.9 Type 2 diabetes mellitus without complications; K21.9 Gastro-esophageal reflux disease without esophagitis; E78.5 Hyperlipidemia, unspecified; I10 Essential (primary) hypertension; Z88.0 Allergy status to penicillin; Z88.2 Allergy status to sulfonamides
CPT/HCPCS: 36415; 71045; 74176; 80053; 81001; 83605; 83690; 83735; 84484; 85025; 93005

== ENCOUNTER 2023-07-18 23:06 | Emergency (ER) | payer OTHER, MEDICAID ==
[~2023-07-18] VITALS: Ht 157.5 cm; Wt 49.5 kg
[~2023-07-18 23:06] MED LIST changes: +DOCU-94 PO
[2023-07-19] MEDS ORDERED: ONDANSETRON ODT 4 MG TAB PO ONE (01:15)
[2023-07-19] MEDS ORDERED: KETOROLAC TROMETH 30 MG/ML 1ML VIAL IM ONE (01:15)
[2023-07-19] MEDS ORDERED: HYDROcodone-ACET 10/325MG TAB PO ONE ×2 (01:15→03:00)
[2023-07-19 01:24] LABS: Basophils # (auto) 0.1 10 ^3/uL (0-0.2); Basophils % (auto) 1.2 % (0.0-2.0); Hematocrit 40.3 % (36.0-46.0); Neutrophils # (auto) 3.9 10 ^3/uL (1.6-8.6); Red Blood Cells 5.14 10^6/uL (4.0-5.20)
[2023-07-19 01:26] LABS: Eosinophils # (auto) 0.1 10 ^3/uL (0-0.8); Eosinophils % (auto) 2.4 % (0.0-7.0); Hemoglobin 12.8 g/dL (12.2-16.2); Lymphocytes # (auto) 1.6 10 ^3/uL (0.4-5.4); Lymphocytes % (auto) 26.4 % (10.0-50.0); Mean Corpuscular Hgb Conc. 31.9 g/dL (32.0-36.0); Mean Corpuscular Volume 78.3 fL (80.0-100.0); Monocytes # (auto) 0.4 10 ^3/uL (0-1.3); Nucleated Red Blood Cells % 0.1 %; Red Cell Distribution Width 16.4 % (11.8-14.3); White Blood Cell 6.2 10^3/uL (4.4-10.8)
[2023-07-19 01:38] LABS: Albumin 4.2 g/dL (3.4-5.0); Calcium 9.9 mg/dL (8.7-10.4); Magnesium 1.9 mg/dL (1.6-2.6); Potassium 3.8 mmol/L (3.5-5.1)
[2023-07-19 01:40] LABS: BUN/Creatinine Ratio 28.8 (10.0-20.0)
[2023-07-19 01:43] LABS: Bilirubin, Total 0.3 mg/dL (0.2-1.0); Total Protein 7.8 g/dL (6.4-8.2)
[2023-07-19 05:18] VITALS: BP 133/74; PULSE 74; RESP 19; O2SAT 99
== END 2023-07-19 05:31 | disposition home or self-care (01) ==
LOC: EDBD 23:06 → ER 23:11
DX: M25.552 Pain in left hip (principal); E86.0 Dehydration; M54.32 Sciatica, left side; I10 Essential (primary) hypertension; E11.9 Type 2 diabetes mellitus without complications; K21.9 Gastro-esophageal reflux disease without esophagitis; J44.9 Chronic obstructive pulmonary disease, unspecified; E78.5 Hyperlipidemia, unspecified; Z79.84 Long term (current) use of oral hypoglycemic drugs; Z79.899 Other long term (current) drug therapy; Z79.82 Long term (current) use of aspirin; Z88.0 Allergy status to penicillin; Z88.2 Allergy status to sulfonamides
CPT/HCPCS: 36415; 74176; 80053; 83690; 83735; 84484; 85025; 96372; 99285; J1885; Q0162

== ENCOUNTER 2023-12-29 13:00 | Emergency (ER) | payer OTHER, MEDICAID ==
[~2023-12-29] VITALS: Ht 157.5 cm; Wt 47.5 kg
[2023-12-29 14:39] LABS: Basophils # (auto) 0.1 10 ^3/uL (0-0.2); Basophils % (auto) 1.2 % (0.0-2.0); Eosinophils # (auto) 0.1 10 ^3/uL (0-0.8); Hematocrit 41.3 % (36.0-46.0); Hemoglobin 12.9 g/dL (12.2-16.2); Lymphocytes # (auto) 2.1 10 ^3/uL (0.4-5.4); Lymphocytes % (auto) 30.4 % (10.0-50.0); Mean Corpuscular Hgb Conc. 31.3 g/dL (32.0-36.0); Mean Corpuscular Volume 76.8 fL (80.0-100.0); Monocytes # (auto) 0.5 10 ^3/uL (0-1.3); Monocytes % (auto) 7.1 % (0.0-12.0); Neutrophils # (auto) 4.1 10 ^3/uL (1.6-8.6); Neutrophils % (auto) 60.3 % (37.0-80.0); Nucleated Red Blood Cells % 0.1 %; Red Blood Cells 5.37 10^6/uL (4.0-5.20); White Blood Cell 6.8 10^3/uL (4.4-10.8)
[2023-12-29 14:56] LABS: Alanine Aminotransferase 11 U/L (7-40); Alkaline Phosphatase 74 U/L (46-116); Anion Gap 5 (5-15); Aspartate Aminotransferase 16 U/L (13-40); BUN/Creatinine Ratio 12.3 (10.0-20.0); Blood Urea Nitrogen 8 mg/dL (9-23); Calcium 10.1 mg/dL (8.7-10.4); Carbon Dioxide 30 mmol/L (20-30); Chloride 102 mmol/L (98-107); Glucose 201 mg/dL (74-106); Magnesium 2.1 mg/dL (1.6-2.6); Potassium 4.4 mmol/L (3.5-5.1); Sodium 137 mmol/L (136-145)
[2023-12-29 14:57] LABS: Albumin 4.9 g/dL (3.2-4.8); Bilirubin, Total 0.6 mg/dL (0.2-1.0); Total Protein 7.8 g/dL (5.7-8.2)
[2023-12-29] MEDS ORDERED: DICL75TA3 PO (15:22)
[2023-12-29 15:41] VITALS: BP 143/56; PULSE 82; RESP 16; TEMP 97.6; O2SAT 97
== END 2023-12-29 15:44 | disposition home or self-care (01) ==
LOC: ER 13:00
DX: S00.03XA Contusion of scalp, initial encounter (principal); S20.212A Contusion of left front wall of thorax, initial encounter; J44.9 Chronic obstructive pulmonary disease, unspecified; E11.9 Type 2 diabetes mellitus without complications; E78.5 Hyperlipidemia, unspecified; K21.9 Gastro-esophageal reflux disease without esophagitis; I10 Essential (primary) hypertension; Z79.82 Long term (current) use of aspirin; Z79.899 Other long term (current) drug therapy; Z88.0 Allergy status to penicillin; Z88.2 Allergy status to sulfonamides; W18.39XA Other fall on same level, initial encounter; Y93.89 Activity, other specified; Y92.89 Other specified places as the place of occurrence of the external cause; Y99.8 Other external cause status
CPT/HCPCS: 36415; 70450; 71250; 72125; 80053; 83735; 85025; 93005

== ENCOUNTER 2024-01-25 01:21 | Emergency (ER) | payer OTHER, MEDICAID ==
[~2024-01-25] VITALS: Ht 152.4 cm; Wt 59.0 kg
[~2024-01-25 01:21] MED LIST changes: +DICL75TA3 PO
[2024-01-25 02:48] LABS: Neutrophils # (auto) 2.7 10 ^3/uL (1.6-8.6)
[2024-01-25 02:50] LABS: Basophils # (auto) 0.1 10 ^3/uL (0-0.2); Basophils % (auto) 1.4 % (0.0-2.0); Eosinophils # (auto) 0.2 10 ^3/uL (0-0.8); Eosinophils % (auto) 3.3 % (0.0-7.0); Hematocrit 38.1 % (36.0-46.0); Hemoglobin 11.8 g/dL (12.2-16.2); Lymphocytes # (auto) 1.7 10 ^3/uL (0.4-5.4); Lymphocytes % (auto) 33.6 % (10.0-50.0); Mean Corpuscular Hemoglobin 24.2 pg (28.0-32.0); Mean Corpuscular Hgb Conc. 31.1 g/dL (32.0-36.0); Mean Corpuscular Volume 77.8 fL (80.0-100.0); Monocytes # (auto) 0.4 10 ^3/uL (0-1.3); Monocytes % (auto) 8.1 % (0.0-12.0); Neutrophils % (auto) 53.6 % (37.0-80.0); Nucleated Red Blood Cells % 0.2 %; Red Cell Distribution Width 16.7 % (11.8-14.3)
[2024-01-25 02:58] LABS: INR 1.04 (0.9-1.15); Partial Thromboplastin Time 24.2 SEC (24.5-34.5); Prothrombin Time 10.9 sec (9.3-11.8)
[2024-01-25 03:37] LABS: Albumin 4.4 g/dL (3.2-4.8); Alkaline Phosphatase 67 U/L (46-116); Anion Gap 6 (5-15); Aspartate Aminotransferase 13 U/L (13-40); BUN/Creatinine Ratio 14.3 (10.0-20.0); Bilirubin, Total 0.6 mg/dL (0.2-1.0); Blood Urea Nitrogen 7 mg/dL (9-23); Calcium 9.4 mg/dL (8.7-10.4); Carbon Dioxide 27 mmol/L (20-30); Chloride 104 mmol/L (98-107); Glucose 191 mg/dL (74-106); Lipase 111 U/L (12-53); Potassium 3.6 mmol/L (3.5-5.1); Sodium 137 mmol/L (136-145)
[2024-01-25 03:43] LABS: Alanine Aminotransferase < 9 U/L (7-40)
[2024-01-25] MEDS: ONDANSETRON HCL 4 MG/2 ML VIAL IV ONE (05:07)
[2024-01-25] MEDS: MORPHINE SULFATE INJ 2 MG/ml SYRG IV ONE (05:08)
[2024-01-25 08:00] VITALS: PULSE 77; RESP 17; O2SAT 93
[2024-01-25 09:09] LABS: Urine Bacteria FEW /hpf (None Seen); Urine Blood Negative /uL (Negative); Urine Clarity Clear (Clear); Urine Color Colorless (Yellow); Urine Protein, UAD Negative (Negative); Urine Specific Gravity 1.026 (1.001-1.035); Urine Urobilinogen Normal (Negative); Urine WBC 12 /hpf (0 - 5); Urine pH 6.5 (5.0-8.0)
[2024-01-25 12:00] VITALS: BP 127/60; PULSE 77; RESP 12; O2SAT 96
[2024-01-25] MEDS ORDERED: NITR-87 PO (12:19)
== END 2024-01-25 12:27 | disposition home or self-care (01) ==
LOC: EDBD 01:21 → ER 01:21 → EDUNIT# 01:21 → ER 12:27
DX: R10.30 Lower abdominal pain, unspecified (principal); I10 Essential (primary) hypertension; E11.9 Type 2 diabetes mellitus without complications; J44.9 Chronic obstructive pulmonary disease, unspecified; E78.5 Hyperlipidemia, unspecified; K21.9 Gastro-esophageal reflux disease without esophagitis; Z79.899 Other long term (current) drug therapy; Z79.82 Long term (current) use of aspirin; Z88.0 Allergy status to penicillin; Z88.2 Allergy status to sulfonamides
CPT/HCPCS: 36415; 74176; 80053; 81001; 83605; 83690; 84484; 85025; 85610; 85730; 87040; 93005; 96374; 96375; 99285; J2270; J2405

== ENCOUNTER 2024-03-06 11:14 | Emergency (ER) | payer OTHER, MEDICAID ==
[~2024-03-06] VITALS: Ht 157.5 cm; Wt 47.9 kg
[~2024-03-06 11:14] MED LIST changes: -GLIP5TAB12 PO; +GLIP5TAB21 PO; +LOSA-534 PO; -LOSA50TA46 PO; +NITR-87 PO
[2024-03-06 12:27] LABS: Basophils # (auto) 0.1 10 ^3/uL (0-0.2); Eosinophils # (auto) 0.2 10 ^3/uL (0-0.8); Monocytes # (auto) 0.4 10 ^3/uL (0-1.3); White Blood Cell 5.1 10^3/uL (4.4-10.8)
[2024-03-06 12:28] LABS: Basophils % (auto) 1.1 % (0.0-2.0); Eosinophils % (auto) 3.7 % (0.0-7.0); Hemoglobin 12.4 g/dL (12.2-16.2); Lymphocytes # (auto) 1.8 10 ^3/uL (0.4-5.4); Lymphocytes % (auto) 34.6 % (10.0-50.0); Mean Corpuscular Hemoglobin 24.7 pg (28.0-32.0); Mean Corpuscular Hgb Conc. 31.8 g/dL (32.0-36.0); Mean Corpuscular Volume 77.7 fL (80.0-100.0); Monocytes % (auto) 8.7 % (0.0-12.0); Neutrophils # (auto) 2.6 10 ^3/uL (1.6-8.6); Neutrophils % (auto) 51.9 % (37.0-80.0); Nucleated Red Blood Cells % 0.1 %; Red Blood Cells 5.03 10^6/uL (4.0-5.20); Red Cell Distribution Width 15.6 % (11.8-14.3)
[2024-03-06 12:44] LABS: Alanine Aminotransferase 11 U/L (7-40); Albumin 4.8 g/dL (3.2-4.8); Alkaline Phosphatase 74 U/L (46-116); Anion Gap 6 (5-15); Aspartate Aminotransferase 16 U/L (13-40); BUN/Creatinine Ratio 14.8 (10.0-20.0); Bilirubin, Total 0.5 mg/dL (0.2-1.0); Blood Urea Nitrogen 9 mg/dL (9-23); Calcium 10.1 mg/dL (8.7-10.4); Carbon Dioxide 29 mmol/L (20-30); Chloride 104 mmol/L (98-107); Glucose 168 mg/dL (74-106); Magnesium 1.9 mg/dL (1.6-2.6); Potassium 3.9 mmol/L (3.5-5.1); Sodium 139 mmol/L (136-145); Total Protein 7.2 g/dL (5.7-8.2)
[2024-03-06 12:53] LABS: Lactic Acid w/Reflex 2.4 mmol/L (0.4-2.0)
[2024-03-06] MEDS: SODIUM CHLORIDE 0.9% 1,000 ML IV ONE (15:57)
[2024-03-06 20:02] LABS: Urine Bacteria None Seen /hpf (None Seen)
[2024-03-06 20:13] LABS: Urine Blood Negative /uL (Negative); Urine Clarity Clear (Clear); Urine Color Colorless (Yellow); Urine Protein, UAD Negative (Negative); Urine Specific Gravity 1.011 (1.001-1.035); Urine Urobilinogen Normal (Negative); Urine WBC <1 /hpf (0 - 5); Urine pH 6.5 (5.0-9.0)
[2024-03-06 22:08] VITALS: BP 120/43; PULSE 83; RESP 19; TEMP 98.7; O2SAT 96
== END 2024-03-06 22:09 | disposition home or self-care (01) ==
LOC: ER 11:14
DX: S09.8XXA Other specified injuries of head, initial encounter (principal); E11.9 Type 2 diabetes mellitus without complications; I10 Essential (primary) hypertension; E78.5 Hyperlipidemia, unspecified; J44.9 Chronic obstructive pulmonary disease, unspecified; W18.09XA Striking against other object with subsequent fall, initial encounter; Y93.89 Activity, other specified; Y92.89 Other specified places as the place of occurrence of the external cause; Y99.8 Other external cause status
CPT/HCPCS: 36415; 70450; 72125; 73562; 80053; 81001; 83605; 83735; 84484; 85025; 96360; 99284; J7030

== ENCOUNTER 2024-03-16 06:38 | Inpatient (IN) | payer OTHER, MEDICAID ==
[2024-03-16] VITALS (11 sets, daily range): BP systolic 101–111; BP diastolic 37–52; PULSE 83–119; RESP 16–24; TEMP 97.8–100; O2SAT 90–100
[~2024-03-16] VITALS: Ht 152.4 cm; Wt 48.5 kg
[2024-03-16 07:09] LABS: Basophils # (auto) 0.1 10 ^3/uL (0-0.2); Eosinophils # (auto) 0.1 10 ^3/uL (0-0.8); Neutrophils # (auto) 3.8 10 ^3/uL (1.6-8.6); White Blood Cell 5.8 10^3/uL (4.4-10.8)
[2024-03-16 07:12] LABS: Eosinophils % (auto) 1.2 % (0.0-7.0); Lymphocytes # (auto) 1.2 10 ^3/uL (0.4-5.4); Lymphocytes % (auto) 20.2 % (10.0-50.0); Mean Corpuscular Hemoglobin 24.4 pg (28.0-32.0); Mean Corpuscular Hgb Conc. 31.7 g/dL (32.0-36.0); Mean Corpuscular Volume 76.9 fL (80.0-100.0); Monocytes # (auto) 0.7 10 ^3/uL (0-1.3); Monocytes % (auto) 12.6 % (0.0-12.0); Nucleated Red Blood Cells % 0.1 %; Red Blood Cells 4.94 10^6/uL (4.0-5.20); Red Cell Distribution Width 15.4 % (11.8-14.3)
[2024-03-16 07:30] LABS: Albumin 4.9 g/dL (3.2-4.8); Alkaline Phosphatase 74 U/L (46-116); Anion Gap 7 (5-15); Aspartate Aminotransferase 16 U/L (13-40); BUN/Creatinine Ratio 8.9 (10.0-20.0); Bilirubin, Total 0.4 mg/dL (0.2-1.0); Blood Urea Nitrogen 5 mg/dL (9-23); Calcium 9.7 mg/dL (8.7-10.4); Carbon Dioxide 25 mmol/L (20-30); Chloride 103 mmol/L (98-107); Glucose 207 mg/dL (74-106); Potassium 3.6 mmol/L (3.5-5.1); Sodium 135 mmol/L (136-145); Total Protein 7.4 g/dL (5.7-8.2)
[2024-03-16 07:36] LABS: Alanine Aminotransferase < 9 U/L (7-40)
[2024-03-16 07:58] LABS: Urine Bacteria None Seen /hpf (None Seen)
[2024-03-16 08:35] LABS: Urine Blood Negative /uL (Negative); Urine Clarity Clear (Clear); Urine Protein, UAD Negative (Negative); Urine Specific Gravity 1.018 (1.001-1.035); Urine Urobilinogen Normal (Negative); Urine WBC <1 /hpf (0 - 5); Urine pH 6.5 (5.0-9.0)
[2024-03-16 08:37] LABS: Urine Color Yellow (Yellow)
[2024-03-16] MEDS: levoFLOXacin 500MG 100 ML IV ONE (09:42)
[2024-03-16] MEDS ORDERED: ALBUTEROL SULF 2.5 MG/0.5ML(0.5%) NEB SOLN NEB PRN (10:15)
[2024-03-16] MEDS ORDERED: ACETAMINOPHEN 325 MG TAB PO PRN (10:15)
[2024-03-16] MEDS ORDERED: SODIUM CHLORIDE 0.9% 1,000 ML IV SCH (10:15)
[2024-03-16] MEDS ORDERED: DEXTROSE (50%) 50ML SYRG IV PRN (10:15)
[2024-03-16] MEDS ORDERED: guaiFENesin-DM 100/10mg/5ml SYR PO PRN (10:30)
[2024-03-16] MEDS: SODIUM CHLORIDE 0.9% 1,000 ML IV SCH (10:45)
[2024-03-16] MEDS: ACCU-CHEK COMFORT CURVE STRIP VI SCH (10:59)
[2024-03-16] MEDS: InsuLIN REG 1unit/0.01ml Soln (100units/ml) SC SCH (11:00)
[2024-03-16] MEDS: PANTOPRAZOLE 40 MG/10 ML VIAL INJ IV ONE (11:16)
[2024-03-16] MEDS ORDERED: [UNRECOGNIZED DRUG - OTHER] PO SCH (12:00)
[2024-03-16] MEDS ORDERED: DEXTROMETHORPHAN GUAIFENESIN PO SCH (12:00)
[2024-03-16] MEDS: IPRATROPIUM BROM 0.5 MG/2.5ML INH SOL NEB SCH (13:49)
[2024-03-16] MEDS: ALBUTEROL SULF 2.5 MG/0.5ML(0.5%) NEB SOLN NEB SCH (13:49)
[2024-03-16] MEDS: GABAPENTIN 400 MG CAP PO SCH (15:24)
[2024-03-16] MEDS: ACETAMINOPHEN 325 MG TAB PO PRN (15:52)
[2024-03-16] MEDS ORDERED: HYDROcodone-ACET 5/325MG TAB PO PRN (16:00)
[2024-03-16] MEDS: PANTOPRAZOLE 40 MG TAB PO SCH (21:41)
[2024-03-16] MEDS: SUCRALFATE 1 GM/10 ML ORAL SUSP PO SCH (21:41)
[2024-03-16] MEDS: DICLOFENAC SODIUM 75 MG PO SCH (21:41)
[2024-03-16] MEDS: PRAVASTATIN SODIUM 20 MG TAB PO SCH (21:41)
[2024-03-16] MEDS ORDERED: PATIENTS OWN MEDICATION (Simvastatin 20 MG) PO SCH (22:00)
[2024-03-17] VITALS (11 sets, daily range): BP systolic 104–125; BP diastolic 45–57; PULSE 90–108; RESP 14–18; TEMP 97.7–100.5; O2SAT 94–99
[2024-03-17 06:22] LABS: Basophils # (auto) 0 10 ^3/uL (0-0.2); Basophils % (auto) 0.5 % (0.0-2.0); Eosinophils # (auto) 0 10 ^3/uL (0-0.8); Eosinophils % (auto) 0.2 % (0.0-7.0); Hemoglobin 10.9 g/dL (12.2-16.2); Mean Corpuscular Hemoglobin 24.4 pg (28.0-32.0); Monocytes # (auto) 0.8 10 ^3/uL (0-1.3); Nucleated Red Blood Cells % 0.1 %
[2024-03-17 06:24] LABS: Hematocrit 34.1 % (36.0-46.0); Lymphocytes # (auto) 1.4 10 ^3/uL (0.4-5.4); Lymphocytes % (auto) 22.6 % (10.0-50.0); Mean Corpuscular Hgb Conc. 31.9 g/dL (32.0-36.0); Mean Corpuscular Volume 76.3 fL (80.0-100.0); Monocytes % (auto) 13.2 % (0.0-12.0); Neutrophils % (auto) 63.5 % (37.0-80.0); Red Blood Cells 4.46 10^6/uL (4.0-5.20); Red Cell Distribution Width 15.3 % (11.8-14.3); White Blood Cell 6.3 10^3/uL (4.4-10.8)
[2024-03-17 06:50] LABS: Alkaline Phosphatase 58 U/L (46-116); Anion Gap 8 (5-15); Blood Urea Nitrogen 5 mg/dL (9-23); Calcium 9.4 mg/dL (8.7-10.4); Carbon Dioxide 26 mmol/L (20-30); Chloride 105 mmol/L (98-107); Glucose 218 mg/dL (74-106); Potassium 3.3 mmol/L (3.5-5.1); Sodium 139 mmol/L (136-145)
[2024-03-17 06:51] LABS: Albumin 4.3 g/dL (3.2-4.8); Aspartate Aminotransferase 15 U/L (13-40); Bilirubin, Total 0.4 mg/dL (0.2-1.0); Total Protein 6.6 g/dL (5.7-8.2)
[2024-03-17 06:57] LABS: Alanine Aminotransferase < 9 U/L (7-40)
[2024-03-17] MEDS ORDERED: DEXTROSE (50%) 50ML SYRG IV PRN (09:45)
[2024-03-17] MEDS ORDERED: cefTRIAXone 1GM/50ML D5W 50 ML IV ONE (09:45)
[2024-03-17] MEDS: CHOLECALCIFEROL (VITD3) 1,000UNIT=25mCg TAB PO SCH (09:52)
[2024-03-17] MEDS: ENOXAPARIN SOD 40 MG/0.4 ML SYRINGE SC SCH (09:53)
[2024-03-17] MEDS: ASPirin 81 mg TAB PO SCH (09:54)
[2024-03-17] MEDS: amLODIPine BESYLATE 5 MG TAB PO SCH (10:00)
[2024-03-17] MEDS ORDERED: AZITHROMYCIN 250 MG TAB PO SCH (10:00)
[2024-03-17] MEDS ORDERED: ENOXAPARIN SOD 40 MG/0.4 ML SYRINGE SC SCH (10:00)
[2024-03-17] MEDS ORDERED: PANTOPRAZOLE 40 MG/10 ML VIAL INJ IV SCH (10:00)
[2024-03-17] MEDS ORDERED: ACETAMINOPHEN 325 MG TAB PO PRN (10:15)
[2024-03-17] MEDS: methylPREDNISolone SOD SUCC 40 MG/ML VL IV ONE (11:13)
[2024-03-17] MEDS: ACCU-CHEK COMFORT CURVE STRIP VI SCH (11:14)
[2024-03-17] MEDS: POTASSIUM CHL 10 Meq TABLET PO ONE (11:14)
[2024-03-17] MEDS: InsuLIN REG 1unit/0.01ml Soln (100units/ml) SC SCH (11:15)
[2024-03-17] MEDS ORDERED: PRED20TA2 PO (13:38)
[2024-03-17] MEDS ORDERED: PANT40T PO (13:38)
[2024-03-17] MEDS ORDERED: InsuLIN REG 1unit/0.01ml Soln (100units/ml) SC SCH (22:00)
[2024-03-17] MEDS ORDERED: methylPREDNISolone SOD SUCC 40 MG/ML VL IV SCH (22:00)
[2024-03-18] MEDS ORDERED: cefTRIAXone 1GM/50ML D5W 50 ML IV SCH (09:00)
== END 2024-03-17 16:40 | disposition home or self-care (01) | DRG 203 ==
LOC: ER 06:38 → OVERFLOW 10:11 → EAST 17:57
PROVIDERS: ADMIT Nurse Practitioner Family; ATTEND Nurse Practitioner Family
DX: J45.901 Unspecified asthma with (acute) exacerbation (principal); K21.9 Gastro-esophageal reflux disease without esophagitis; E78.5 Hyperlipidemia, unspecified; J98.4 Other disorders of lung; I10 Essential (primary) hypertension; E11.9 Type 2 diabetes mellitus without complications; Z85.3 Personal history of malignant neoplasm of breast; Z90.11 Acquired absence of right breast and nipple; Z88.0 Allergy status to penicillin; Z88.2 Allergy status to sulfonamides; D50.0 Iron deficiency anemia secondary to blood loss (chronic)
CPT/HCPCS: 36415; 71045; 80053; 81001; 82962; 83036; 84484; 85025; 93005; 94640; 97163; C9113; G0378; J1815; J1956

== ENCOUNTER 2024-07-26 19:24 | Inpatient (IN) | payer OTHER, MEDICAID ==
[~2024-07-26] VITALS: Ht 157.5 cm; Wt 47.7 kg
[~2024-07-26 19:24] MED LIST changes: +PRED20TA2 PO
[2024-07-26 20:22] LABS: Basophils # (auto) 0.1 10 ^3/uL (0-0.2); Basophils % (auto) 1.5 % (0.0-2.0); Eosinophils # (auto) 0.2 10 ^3/uL (0-0.8); Eosinophils % (auto) 4.4 % (0.0-7.0); Hematocrit 41.7 % (36.0-46.0); Hemoglobin 13.6 g/dL (12.2-16.2); Lymphocytes # (auto) 2.4 10 ^3/uL (0.4-5.4); Lymphocytes % (auto) 42.3 % (10.0-50.0); Mean Corpuscular Hemoglobin 25.5 pg (28.0-32.0); Mean Corpuscular Hgb Conc. 32.6 g/dL (32.0-36.0); Mean Corpuscular Volume 78.2 fL (80.0-100.0); Monocytes # (auto) 0.5 10 ^3/uL (0-1.3); Monocytes % (auto) 9.4 % (0.0-12.0); Neutrophils # (auto) 2.4 10 ^3/uL (1.6-8.6); Neutrophils % (auto) 42.4 % (37.0-80.0); Nucleated Red Blood Cells % 0.1 %; Platelet Count (auto) 262 10^3/uL (140-450); Red Blood Cells 5.33 10^6/uL (4.0-5.20); Red Cell Distribution Width 17.5 % (11.8-14.3); White Blood Cell 5.7 10^3/uL (4.4-10.8)
[2024-07-26 20:33] LABS: Urine Bacteria None Seen /hpf (None Seen); Urine WBC None Seen /hpf (0 - 5)
[2024-07-26 20:36] LABS: Alanine Aminotransferase 13 U/L (7-40); Albumin 5.1 g/dL (3.2-4.8); Alkaline Phosphatase 74 U/L (46-116); Anion Gap 11 (5-15); Aspartate Aminotransferase 20 U/L (13-40); BUN/Creatinine Ratio 14.8 (10.0-20.0); Bilirubin, Total 0.7 mg/dL (0.2-1.0); Blood Urea Nitrogen 9 mg/dL (9-23); Carbon Dioxide 25 mmol/L (20-30); Chloride 103 mmol/L (98-107); Glucose 94 mg/dL (74-106); Sodium 139 mmol/L (136-145); Total Protein 7.9 g/dL (5.7-8.2)
[2024-07-26] MEDS: HYDROcodone-ACET 5/325MG TAB PO ONE (20:45)
[2024-07-26 20:58] LABS: Urine Blood Negative /uL (Negative); Urine Clarity Clear (Clear); Urine Color Colorless (Yellow); Urine Protein, UAD Negative (Negative); Urine Specific Gravity 1.004 (1.001-1.035); Urine Urobilinogen Normal (Negative); Urine pH 6.5 (5.0-9.0)
[2024-07-26 21:23] LABS: Lactic Acid w/Reflex 2.2 mmol/L (0.4-2.0)
[2024-07-26 21:35] VITALS: PULSE 78; RESP 12; O2SAT 93
[2024-07-26] MEDS: SODIUM CHLORIDE 0.9% 1,000 ML IV ONE (22:32)
[2024-07-26] MEDS: ONDANSETRON HCL 4 MG/2 ML VIAL IV ONE (22:46)
[2024-07-26] MEDS: MORPHINE SULFATE 4 MG/ML SYR/VIAL IV ONE (22:47)
[2024-07-27] MEDS ORDERED: DOCUSATE SOD 100 MG CAP PO PRN (02:30)
[2024-07-27] MEDS ORDERED: ONDANSETRON HCL 4 MG/2 ML VIAL IV PRN (02:30)
[2024-07-27] MEDS ORDERED: DEXTROSE (50%) 50ML SYRG IV PRN (02:30)
[2024-07-27] MEDS: HYDROcodone-ACET 5/325MG TAB PO PRN (02:37)
[2024-07-27] MEDS ORDERED: NITROGLYCERIN 0.4 MG SL TAB SL PRN (02:45)
[2024-07-27] MEDS ORDERED: MORPHINE SULFATE INJ 2 MG/ml SYRG IV PRN (02:45)
[2024-07-27] MEDS: DOCUSATE SOD 100 MG CAP PO ONE (03:37)
[2024-07-27 04:26] VITALS: BP 127/64; PULSE 78; RESP 18; TEMP 97.6; O2SAT 95
[2024-07-27 05:52] VITALS: PULSE 90; RESP 18; O2SAT 96
[2024-07-27] MEDS: SODIUM CHLOR 0.9% PF (SALINE LOCK) 10ML VIAL/SYR IV SCH (06:06)
[2024-07-27] MEDS: ACETAMINOPHEN 325 MG TAB PO PRN (06:14)
[2024-07-27] MEDS: InsuLIN REG 1unit/0.01ml Soln (100units/ml) SC SCH (06:16)
[2024-07-27] MEDS: ACCU-CHEK COMFORT CURVE STRIP VI SCH (06:17)
[2024-07-27 09:07] VITALS: BP 117/59; PULSE 74; RESP 17; TEMP 97.9; O2SAT 94
[2024-07-27] MEDS: ASPirin 81 mg TAB PO SCH (12:27)
[2024-07-27] MEDS: PANTOPRAZOLE 40 MG/10 ML VIAL INJ IV SCH (12:27)
[2024-07-27 14:19] VITALS: BP 129/60; PULSE 75; RESP 17; TEMP 98.2; O2SAT 93
[2024-07-27 17:09] VITALS: BP 119/68; PULSE 68; RESP 16; TEMP 97.8; O2SAT 95
[2024-07-27 21:00] VITALS: BP 146/73; PULSE 92; RESP 16; TEMP 98.2; O2SAT 92
[2024-07-27] MEDS: ATORVASTATIN 20 MG TAB PO SCH (21:28)
[2024-07-28 01:00] VITALS: BP 148/72; PULSE 84; RESP 18; TEMP 97.9; O2SAT 94
[2024-07-28 05:00] VITALS: BP 123/58; PULSE 90; RESP 18; TEMP 98; O2SAT 98
[2024-07-28 05:55] LABS: Basophils # (auto) 0.1 10 ^3/uL (0-0.2); Basophils % (auto) 0.8 % (0.0-2.0); Eosinophils # (auto) 0.2 10 ^3/uL (0-0.8); Eosinophils % (auto) 3.9 % (0.0-7.0); Hematocrit 39.7 % (36.0-46.0); Hemoglobin 12.7 g/dL (12.2-16.2); Lymphocytes # (auto) 1.9 10 ^3/uL (0.4-5.4); Lymphocytes % (auto) 31.4 % (10.0-50.0); Mean Corpuscular Hemoglobin 24.9 pg (28.0-32.0); Mean Corpuscular Volume 77.7 fL (80.0-100.0); Monocytes # (auto) 0.6 10 ^3/uL (0-1.3); Monocytes % (auto) 9.6 % (0.0-12.0); Neutrophils # (auto) 3.4 10 ^3/uL (1.6-8.6); Neutrophils % (auto) 54.3 % (37.0-80.0); Nucleated Red Blood Cells % 0.2 %; Platelet Count (auto) 225 10^3/uL (140-450); Red Blood Cells 5.11 10^6/uL (4.0-5.20); Red Cell Distribution Width 17.8 % (11.8-14.3); White Blood Cell 6.2 10^3/uL (4.4-10.8)
[2024-07-28 06:19] LABS: Alanine Aminotransferase 10 U/L (7-40); Albumin 4.1 g/dL (3.2-4.8); Alkaline Phosphatase 66 U/L (46-116); Anion Gap 7 (5-15); Aspartate Aminotransferase 15 U/L (13-40); BUN/Creatinine Ratio 21.5 (10.0-20.0); Bilirubin, Total 0.5 mg/dL (0.2-1.0); Blood Urea Nitrogen 14 mg/dL (9-23); Calcium 9.4 mg/dL (8.7-10.4); Carbon Dioxide 25 mmol/L (20-30); Chloride 106 mmol/L (98-107); Glucose 150 mg/dL (74-106); Potassium 3.8 mmol/L (3.5-5.1); Sodium 138 mmol/L (136-145); Total Protein 6.6 g/dL (5.7-8.2)
[2024-07-28 09:00] VITALS: BP 149/76; PULSE 102; RESP 18; TEMP 97.6; O2SAT 97
[2024-07-28] MEDS ORDERED: LACTULOSE 20Gm/30ML SOLN PO SCH ×2 (10:00)
[2024-07-28] MEDS: FLEET ENEMA(ADULT) 135 ML PR ONE ×2 (11:00→17:41)
[2024-07-28] MEDS: POLYETHYLENE GLYCOL 17 GM PWDR PO SCH (11:09)
[2024-07-28] MEDS: hydrALAZINE HCL 20 MG/ML VL IV PRN (11:56)
[2024-07-28 13:00] VITALS: BP 180/79; PULSE 87; RESP 16; TEMP 97.6; O2SAT 96
[2024-07-28 17:00] VITALS: BP 179/83; PULSE 104; RESP 16; TEMP 98.6; O2SAT 95
[2024-07-28] MEDS: LACTULOSE 20Gm/30ML SOLN PO SCH (17:27)
[2024-07-28] MEDS: amLODIPine BESYLATE 5 MG TAB PO ONE (17:42)
[2024-07-28 21:00] VITALS: BP 153/75; PULSE 91; RESP 14; TEMP 97.8; O2SAT 95
[2024-07-29 01:00] VITALS: BP 155/77; PULSE 107; RESP 18; TEMP 97.7; O2SAT 98
[2024-07-29 09:00] VITALS: BP 144/70; PULSE 65; RESP 16; TEMP 97.8; O2SAT 96
[2024-07-29] MEDS: amLODIPine BESYLATE 5 MG TAB PO SCH (10:14)
[2024-07-29] MEDS ORDERED: LACT10PA2 PO (12:20)
[2024-07-29] MEDS ORDERED: DOCU-94 PO (12:20)
[2024-07-29 13:00] VITALS: BP 129/91; PULSE 105; RESP 16; TEMP 98; O2SAT 100
== END 2024-07-29 14:00 | disposition home or self-care (01) | DRG 392 ==
LOC: ER 19:24 → OVERFLOW 07-27 02:43 → WEST WING 07-27 04:18
PROVIDERS: ADMIT Nurse Practitioner Family; ATTEND Family Medicine
DX: K59.00 Constipation, unspecified (principal); E11.9 Type 2 diabetes mellitus without complications; I10 Essential (primary) hypertension; K21.9 Gastro-esophageal reflux disease without esophagitis; J44.9 Chronic obstructive pulmonary disease, unspecified; E78.00 Pure hypercholesterolemia, unspecified; Z88.0 Allergy status to penicillin; Z88.2 Allergy status to sulfonamides; Z87.440 Personal history of urinary (tract) infections
CPT/HCPCS: 36415; 74176; 80053; 81001; 82962; 83036; 83605; 84443; 85025; 96361; 96374; 96375; G0378; J1815; J2405; J2470

== ENCOUNTER 2024-12-14 09:28 | Inpatient (IN) | payer OTHER, MEDICAID ==
[2024-12-14] VITALS (7 sets, daily range): BP systolic 95–128; BP diastolic 40–41; PULSE 70–84; RESP 11–20; TEMP 98.5–98.6; O2SAT 95–98
[~2024-12-14] VITALS: Ht 157.5 cm; Wt 52.0 kg
[~2024-12-14 09:28] MED LIST changes: -ASPI81CH43 PO; -CHOL100029 PO; -DICL75TA3 PO; +LACT10PA2 PO; -NITR-87 PO; -[UNRECOGNIZED DRUG - CODE] PO
--- NOTE | 2024-12-14 09:58 | DVH ---
XY CHEST PORTABLE, HISTORY: CHEST PAIN COMPARISON: XY CHEST PORTABLE on DOS: 03/16/24, XY CHEST PORTABLE on DOS: 04/28/23, XY CHEST PORTABLE on DOS: 04/14/23 XY CHEST PORTABLE on DOS: 03/16/24, XY CHEST PORTABLE on DOS: 04/28/23, XY CHEST PORTABLE on DOS: 3 TECHNICAL DATA: 1 view of the chest was obtained. FINDINGS: Lines and tubes: None Cardiomediastinal silhouette: normal Pulmonary vasculature: normal Lung expansion: low Lung airspace: normal Lung interstitium: normal Pleura: normal Pneumothorax: no Bones: Unremarkable Other: no IMPRESSION: No acute intrathoracic abnormality.
[2024-12-14] MEDS: ONDANSETRON HCL 4 MG/2 ML VIAL IV ONE (10:00)
[2024-12-14 10:13] LABS: Basophils # (auto) 0.1 10 ^3/uL (0-0.2); Eosinophils # (auto) 0.2 10 ^3/uL (0-0.8); Hematocrit 43.2 % (36.0-46.0); Lymphocytes # (auto) 1.5 10 ^3/uL (0.4-5.4); Mean Corpuscular Volume 78.4 fL (80.0-100.0); Red Blood Cells 5.51 10^6/uL (4.0-5.20)
[2024-12-14] MEDS: MORPHINE SULFATE INJ 2 MG/ml SYRG IV ONE (10:13)
[2024-12-14 10:14] LABS: Basophils % (auto) 1.3 % (0.0-2.0); Eosinophils % (auto) 3.6 % (0.0-7.0); Hemoglobin 14.1 g/dL (12.2-16.2); Lymphocytes % (auto) 32.9 % (10.0-50.0); Mean Corpuscular Hemoglobin 25.7 pg (28.0-32.0); Mean Corpuscular Hgb Conc. 32.8 g/dL (32.0-36.0); Monocytes # (auto) 0.4 10 ^3/uL (0-1.3); Neutrophils # (auto) 2.4 10 ^3/uL (1.6-8.6); Neutrophils % (auto) 54.2 % (37.0-80.0); Platelet Count (auto) 254 10^3/uL (140-450); White Blood Cell 4.4 10^3/uL (4.4-10.8)
[2024-12-14 10:24] LABS: Alanine Aminotransferase 10 U/L (7-40); Alkaline Phosphatase 82 U/L (46-116); Anion Gap 8 (5-15); Aspartate Aminotransferase 21 U/L (13-40); BUN/Creatinine Ratio 15.8 (10.0-20.0); Bilirubin, Total 0.7 mg/dL (0.2-1.0); Calcium 10.3 mg/dL (8.7-10.4); Carbon Dioxide 27 mmol/L (20-31); Chloride 104 mmol/L (98-107); Magnesium 2.1 mg/dL (1.6-2.6); Potassium 3.9 mmol/L (3.5-5.1); Sodium 139 mmol/L (136-145)
[2024-12-14 10:25] LABS: Total Protein 7.6 g/dL (5.7-8.2)
[2024-12-14 10:27] LABS: Albumin 5.3 g/dL (3.2-4.8); Blood Urea Nitrogen 9 mg/dL (9-23); Glucose 132 mg/dL (74-106)
[2024-12-14 10:28] LABS: INR 0.98 (0.9-1.15); Partial Thromboplastin Time 27.1 SEC (24.5-34.5); Prothrombin Time 10.4 sec (9.3-11.8)
--- NOTE | 2024-12-14 11:14 | ED.PDOC ---
HPI Comments 74 year old female brought in by EMS presents to the ED with a chief complaint of chest pain onset 8 hours ago. Daughter states patient began experiencing chest pain, radiates to LT arm and LT leg as well as generalized weakness, shortness of breath and nausea. Upon ED arrival BP 112/43, HR 73, O2 sat 95%. Patient rates pain 10/. PMHx COPD, asthma, arthritis, HLD, breast cancer, angina, HTN, DM. No other symptoms or modifying factors present at this time. Chief Complaint: Chest Pain Time Seen by MD: 10:31 Primary Care Provider: ALCON Reviewed Notes: Medications, Allergies Allergies: Coded Allergies: Penicillins (Verified Allergy, Unknown, 03/31/19) Sulfa Drugs (Verified Allergy, Unknown, 03/31/19) Home Meds Active Scripts Lactulose (Lactulose) 10 Gm Eleazar, 10 GM PO DAILY PRN, #120 PACK Prov:AYAH BERUMEN MD 07/29/24 Docusate Sodium (Colace) 100 Mg Cap, 1 CAP PO BID, #30 CAP Prov:AYAH BERUMEN MD 07/29/24 Pantoprazole Sodium Sesquihydr (Pantoprazole Sodium) 40 Mg Tab, 40 MG PO DAILY for 5 Days, #5 TAB 0 Refills Prov:DILCIA MARTINEZ RESIDENT 03/17/24 Prednisone (Prednisone) 20 Mg Tab, 20 MG PO DAILY for 5 Days, #2 MG 0 Refills Prov:DILCIA MARTINEZ RESIDENT 03/17/24 Docusate Sodium (Colace) 100 Mg Cap, 1 CAP PO BID for 10 Days, #20 CAP Prov:ONDINA GUERRA MD 04/28/23 Sucralfate (Carafate) 1 Gm/10 Ml Annie, 10 ML PO BID, #120 ML 1 Refill Prov:ISMAEL BATES MD 11/09/21 Pantoprazole Sodium Sesquihydr (Pantoprazole Sodium) 40 Mg Tab, 40 MG PO BID, #90 TAB Prov:ISMAEL BATES MD 11/09/21 Reported Medications Losartan Potassium (Losartan Potassium) 50 Mg Tab, 50 MG PO DAILY for 30 Days, MG 11/09/21 Docusate Sodium (Dok) 100 Mg Cap, 100 MG PO DAILY, CAP 09/19/20 Albuterol Sulfate (VENTOLIN MDI) 90 Mcg Ih, 2 PUFF IN Q6HP PRN for SHORTNESS OF BREATH, INH 09/19/20 Metformin Hydrochloride (Metformin Hcl) 850 Mg Tab, 1 TAB PO TID, #60 TAB 5 Refills 09/19/20 Glipizide (Glipizide) 5 Mg Tab, 5 MG PO DAILY, MG 09/19/20 Canagliflozin (INVOKANA) 100 Mg Tab, 100 MG PO DAILY, TAB 09/19/20 Amlodipine Besylate (Amlodipine Besylate) 10 Mg Tab, 1 TAB PO DAILY, #30 TAB 5 Refills 09/19/20 Metoprolol Tartrate (Metoprolol Tartrate) 100 Mg Tab, 1 TAB PO BID, #60 TAB 5 Refills 09/19/20 Liraglutide (Victoza) 18 Mg/3 Ml Inj, 1.2 MG SUBCUT HS, #9 ML 3 Refills 09/19/20 Gabapentin (Gabapentin) 400 Mg Cap, 400 MG PO TID 03/03/18 Simvastatin (Simvastatin) 20 Mg Tab, 20 MG PO HS 03/13/11 Information Source: Patient, Relative, Emergency Med Personnel Mode of Arrival: EMS Severity: Moderate Timing: Days Duration: Since onset Prehospital treatment: Pain Meds Location: Chest (L) Radiation: Arm (L), Other (LT leg) Quality: Sharp Onset: At Rest Cardiac Risk Factors: Hyperlipidemia, HTN PE Risk Factors: None History of: Angina Associated Signs and Symptoms: SOB, N/V Past Medical History PAST MEDICAL HISTORY: Angina, Arthritis, Asthma, Cancer, COPD, DM, GERD, High Lipids, HTN, UTI'S Surgical History (Other): mastectomy GLOBE MOUNTER History: No Pertinent GLOBE MOUNTER History Family History Family History: Reviewed,noncontributory to illness Social History Smoker: Non-Smoker Alcohol: Denies ETOH Use Drugs: Denies Drug Use Lives In: Home Constitutional: reports: weakness; denies: chills, diaphoresis, fatigue, fever, malaise, sweats, others EENTM: denies: blurred vision, double vision, ear bleeding, ear discharge, ear drainage, ear pain, ear ringing, eye pain, eye redness, hearing loss, mouth pain, mouth swelling, nasal discharge, nose bleeding, nose congestion, nose pain, photophobia, tearing, throat pain, throat swelling, voice changes, others Respiratory: reports: shortness of breath; denies: cough, hemoptysis, orthopnea, SOB at rest, SOB with excertion, stridor, wheezing, others Cardiovascular: reports: chest pain, left arm pain; denies: dizzy spells, diaphoresis, Dyspnea on exertion, edema, irregular heart beat, lightheadedness, palpitations, PND, syncope, others Gastrointestinal: reports: nausea; denies: abdomen distended, abdominal pain, blood streaked bowels, constipated, diarrhea, dysphagia, difficulty swallowing, hematemesis, melena, poor appetite, poor fluid intake, rectal bleeding, rectal pain, vomiting, others Genitourinary: denies: abnormal vagina bleeding, burning, dyspareunia, dysuria, flank pain, frequency, hematuria, incontinence, pain, , vagina discharge, urgency, others Neurological: denies: dizziness, fainting, headache, left sided numbness, left sided weakness, numbness, paresthesia, pre-existing deficit, right sided numbness, right sided weakness, seizure, speech problems, tingling, tremors, weakness, others Musculoskeletal: reports: others (LT leg pain ); denies: back pain, gout, joint pain, joint swelling, muscle pain, muscle stiffness, neck pain Integumetry: denies: bruises, change in color, change in hair/nails, dryness, laceration, lesions, lumps, rash, wounds, others Allergic/Immunocompromised: denies: Difficulty Healing, Frequent Infections, Hives, Itching, others Hematologic/Lymphatic: denies: anemia, blood clots, easy bleeding, easy bruising, swollen glands, others Endocrine: denies: excessive hunger, excessive sweating, excessive thirst, excessive urination, flushing, intolerance to cold, intolerance to heat, une xplained weight gain, unexplained weight loss, others Psychiatric: denies: anxiety, bipolar disorder, depression, hopeless, panic disorder, schizophrenia, sleepless, suicidal, others All Other Systems: Reviewed and Negative Physical Exam General Appearance: Moderate Distress HEENT: Normal ENT Inspection, Pharynx Normal, TMs Normal Neck: Full Range of Motion, Non-Tender, Normal, Normal Inspection Respiratory: Chest Non-Tender, Lungs Clear, No Accessory Muscle Use, No Respiratory Distress, Normal Breath Sounds Cardiovascular: No Edema, No JVD, No Murmur, No Gallop, Normal Peripheral Pulses, Regular Rate/Rhythm Breast Exam: Deferred Gastrointestinal: No Organomegaly, Non Tender, No Pulsatile Mass, Normal Bowel Sounds, Soft Genitalia: Deferred Pelvic: Deferred Rectal: Deferred Extremities: No calf tenderness, Normal capillary refill, Normal inspection, Normal range of motion, Non-tender, No pedal edema Musculoskeletal : Location: Bilateral Extremity Location: Leg Apperance: Tenderness: Mild, Tenderness: Moderate Neurologic: Alert, dermatopathologist II-XII nml as Tested, No Motor Deficits, Normal Affect, Normal Mood, No Sensory Deficits Cerebellar Function: Normal Reflexes: Normal Skin: Dry, Normal Color, Warm Peripheral Pulses: 1+ carotid (R), 1+ carotid (L) Lymphatic: No Adenopathy EKG EKG : Pulse Rate (adult): 74 [place]: Normal Cardiac Rhythm: NSR Was a procedure done? Was a procedure done?: No CP Differential Dx Differential Diagnosis: Angina, Anxiety / Panic Attack, Electrolyte Disorder, Heart Failure, CO Differential Diagnosis: HTN Essential Differential Diagnosis: Angina, Chest Wall Pain, Costochondritis, Esophageal reflux/spasm, Myocardial Infarction, Pneumonia X-Ray, Labs, Meds, VS Vital Signs Date Time Temp Pulse Resp B/P (MAP) Pulse Ox O2 Delivery O2 Flow Rate FiO2 12/14/24 14:00 76 11 95/41 (59) 96 12/14/24 14:00 76 11 96 Nasal Cannula* 2 28 12/14/24 12:31 69 12/14/24 12:00 68 12/14/24 12:00 68 18 109/43 (65) 97 12/14/24 10:45 74 13 113/52 12/14/24 10:33 71 12/14/24 10:13 72 17 112/63 12/14/24 10:05 98.5 74 12 119/47 (71) 98 98.5 12/14/24 10:00 98.5 70 20 119/47 (71) 95 98.5 12/14/24 10:00 70 20 95 Room Air* 0 21 12/14/24 09:41 98.0 74 18 119/77 (91) 95 12/14/24 09:41 74 12/14/24 09:31 74 Lab Test 12/14/24 13:11 12/14/24 10:54 12/14/24 09:50 Range/Units Troponin I High Sensitivity < 3 L < 3 L < 3 L </=34 ng/L White Blood Count 4.4 4.4-10.8 10^3/uL Red Blood Count 5.51 H 4.0-5.20 10^6/uL Hemoglobin 14.1 12.2-16.2 g/dL Hematocrit 43.2 36.0-46.0 % Mean Corpuscular Volume 78.4 L 80.0-100.0 fL Mean Corpuscular Hemoglobin 25.7 L 28.0-32.0 pg Mean Corpuscular Hemoglobin Concent 32.8 32.0-36.0 g/dL Red Cell Distribution Width 16.0 H 11.8-14.3 % Platelet Count 254 140-450 10^3/uL Mean Platelet Volume 7.6 6.9-10.8 fL Neutrophils (%) (Auto) 54.2 37.0-80.0 % Lymphocytes (%) (Auto) 32.9 10.0-50.0 % Monocytes (%) (Auto) 8.0 0.0-12.0 % Eosinophils (%) (Auto) 3.6 0.0-7.0 % Basophils (%) (Auto) 1.3 0.0-2.0 % Neutrophils # (Auto) 2.4 1.6-8.6 10 ^3/uL Lymphocytes # (Auto) 1.5 0.4-5.4 10 ^3/uL Monocytes # (Auto) 0.4 0-1.3 10 ^3/uL Eosinophils # (Auto) 0.2 0-0.8 10 ^3/uL Basophils # (Auto) 0.1 0-0.2 10 ^3/uL Nucleated Red Blood Cells 0.0 % Prothrombin Time 10.4 9.3-11.8 sec Prothrombin Time INR 0.98 0.9-1.15 Activated Partial Thromboplast Time 27.1 24.5-34.5 SEC Sodium Level 139 136-145 mmol/L Potassium Level 3.9 3.5-5.1 mmol/L Chloride Level 104 98-107 mmol/L Carbon Dioxide Level 27 20-31 mmol/L Anion Gap 8 5-15 Blood Urea Nitrogen 9 9-23 mg/dL Creatinine 0.57 0.550-1.02 mg/dL Glomerular Filtration Rate Calc 95 >90 mL/min BUN/Creatinine Ratio 15.8 10.0-20.0 Serum Glucose 132 H 74-106 mg/dL Hemoglobin A1c 8.0 H <5.7 % A1C Calcium Level 10.3 8.7-10.4 mg/dL Magnesium Level 2.1 1.6-2.6 mg/dL Total Bilirubin 0.7 0.2-1.0 mg/dL Aspartate Amino Transferase (AST) 21 13-40 U/L Alanine Aminotransferase (ALT) 10 7-40 U/L Alkaline Phosphatase 82 46-116 U/L B-Type Natriuretic Peptide 28.40 0-100 pg/mL Total Protein 7.6 5.7-8.2 g/dL Albumin 5.3 H 3.2-4.8 g/dL Thyroid Stimulating Hormone (TSH) 1.74 0.55-4.78 uIU/mL Current Medications Medications (Trade) Dose Ordered Sig/Humera Route Start Time Stop Time Status Last Admin Ondansetron HCl (Zofran) 4 mg ONCE ONCE IV 12/14/24 10:00 12/14/24 10:01 DC 12/14/24 10:00 Morphine Sulfate 2 mg ONCE ONCE IV 12/14/24 10:00 12/14/24 10:01 DC 12/14/24 10:13 [place] [id number] Ph: [phone] DIAGNOSTIC IMAGING Diagnostic Imaging Report : [id number] Signed PATIENT: FRANK MURPHY VACCT: [id number] UNIT: [id number] : 1950 LOC: ER ROOM / BED: / AGE / SEX: 74 / F ADM STATUS: REG ER SERVICE [id number] ORDERING PHYSICIAN: JOCY ALVAREZ MD PROCEDURE(s): CXRP - CHEST PORTABLE REASON: CHEST PAIN ORDER NUMBER(s): [id number], ACCESSION NUMBER(s): [id number] XY CHEST PORTABLE, HISTORY: CHEST PAIN COMPARISON: XY CHEST PORTABLE on DOS: 03/16/24, XY CHEST PORTABLE on DOS: 04/28/23, XY CHEST PORTABLE on DOS: 04/14/23 XY CHEST PORTABLE on DOS: 03/16/24, XY CHEST PORTABLE on DOS: 04/28/23, XY CHEST PORTABLE on DOS: 04/14/23 TECHNICAL DATA: 1 view of the chest was obtained. FINDINGS: Lines and tubes: None Cardiomediastinal silhouette: normal Pulmonary vasculature: normal Lung expansion: low Lung airspace: normal Lung interstitium: normal Pleura: normal Pneumothorax: no Bones: Unremarkable Other: no IMPRESSION: No acute intrathoracic abnormality. ATED BY: LUKE MCDOWELL MD DICTATED DATE/TIME: 12/14/24954 SIGNED BY: LUKE MCDOWELL MD SIGNED DATE/TIME: 12/14/24954 CC: X-Ray, Labs, Meds, VS Comment Course in the emergency department eventful patient came in because of persistent chest pain radiating to the left arm with shortness of breath and nausea blood pressure 119/77 The chest x-ray is negative EKG shows normal sinus rhythm at 74 twice CBC is normal CMP blood sugar 132 the rest is normal Magnesium 2.1 INR 0.98 BNP 28.4 Troponin 3.3 Urine pending Patient will be admitted for further care Time of 1ST Reevaluation: 11:01 Reevaluation 1ST: Unchanged Patient Education/Counseling: Diagnosis, Treatment, Prognosis Family Education/Counseling: Diagnosis, Treatment, Prognosis Additional Information The following tests were ordered, and results were reviewed by me: CBC, XY CHEST, CMP, MAGNESIUM, PTPTT, BNP, UA, TROP -x3, EKG -x3, Additional Information was gathered from interviewing the following independent historians: EMS, daughter I reviewed and agreed with the following test results read by other providers: XY CHEST I discussed treatment and results with medical personnel and: patient, daughter Departure 1 Departure Time of Disposition: 13:19 Impression: Primary Impression: Chest pain Qualified Codes: I20.0 - Unstable angina Additional Impressions: Diabetes type 2, controlled Generalized weakness Restless leg syndrome History of breast cancer Disposition: ADMITTED INPATIENT Admit to: Tele Condition: Serious Critical Care Note Critical Care Time?: No Stability Stability form required: No Heart Score Heart Score: Heart Score Response (Comments) Value History Moderate Suspicious 1 EKG Normal 0 Age >65 2 Risk Factors 1 or 2 risk factors 1 Troponin Normal limit 0 Total 4 I personally scribed for JOCY ALVAREZ MD ([email or web address]) on 12/14/24 at 11:14. Electronically submitted by Josi Henderson ([email or web address]). I personally scribed for JOCY ALVAREZ MD ([email or web address]) on 12/14/24 at 11:16. Electronically submitted by Josi Henderson ([email or web address]). I personally scribed for JOCY ALVAREZ MD ([email or web address]) on 12/14/24 at 11:40. Electronically submitted by Josi Henderson ([email or web address]). JOCY ALVAREZ MD Dec 14, 2024 11:14
[2024-12-14] MEDS ORDERED: DEXTROSE (50%) 50ML SYRG IV PRN (13:45)
[2024-12-14] MEDS ORDERED: ONDANSETRON HCL 4 MG/2 ML VIAL IV PRN (14:30)
[2024-12-14] MEDS ORDERED: MORPHINE SULFATE 4 MG/ML SYR/VIAL IV PRN (14:30)
[2024-12-14] MEDS ORDERED: NITROGLYCERIN 0.4 MG SL TAB SL PRN ×2 (14:30)
[2024-12-14] MEDS ORDERED: MORPHINE SULFATE INJ 2 MG/ml SYRG IV PRN (14:30)
--- NOTE | 2024-12-14 14:33 | DVHHP2 ---
History of Present Illness Reason for Visit: Chest pain History of Present Illness Joanne Mccray V is a 74-year-old female with past medical history of hypertension, hyperlipidemia, diabetes, COPD, asthma, UTIs, arthritis, breast cancer, right mastectomy, knee surgery, and CAD with angio done in 2018 who presents to the ED with general weakness, SOB, headache, left arm pain, nausea, chest pain 8/10 pressure-like and intermittent x1 day. Patient states that chest pain is present when she sits up and lies down. Patient states that the chest pain radiates to her left arm also to her head. She states that she was resting at home when it happened. She states that there are no triggering factors but what helps alleviate it is coming to the hospital and getting morphine. Patient also states that she does not use oxygen at home. Patient reports that she is compliant with her medications. Patient denies any abdominal pain, vomiting, diarrhea, fever, chills, recent sick contacts, recent illnesses, lightheadedness, and dizziness. Cardiovascular: CAD, HTN, hyperipidemia Pulmonary: Asthma, COPD Renal/: UTI Endocrine: Diabetes Past Medical History Arthritis Breast cancer Past Surgical History: Mastectomy, Other (Knee surgery) Family History: DM, Hypertension, Other (Mom with hypertension and diabetes, father with hypertension with both ) Smoke: No ALCOHOL: none Drugs: None Lives: with Family Domestic Violence: Neg Review of Systems Constitutional: Yes: Weakness; No: Fever, Chills, Sweats, Malaise, Other Eyes: No: Pain, Vision change, Conjunctivae inflammation, Eyelid inflammation, Other, Redness ENT: No: Ear pain, Ear discharge, Nose pain, Nose discharge, Nose congestion, Mouth pain, Mouth swelling, Throat pain, Throat swelling, Other Respiratory: Shortness of breath; No: Cough, Dry, SOB with excertion, Wheezing, Hemoptysis, Pleuritic Pain, Sputum, Wheezing, Other Cardiovascular: Chest Pain; No: Palpitations, Orthopnea, Paroxysmal Noc. Dyspnea, Edema, Lt Headedness, Other Gastrointestinal: Nausea; No: Vomiting, Abdominal Pain, Diarrhea, Constipation, Melena, Hematochezia, Other Genitourinary: No Dysuria, No Frequency, No Incontinence, No Hematuria, No Retention, No Other Musculoskeletal: arm pain; No: other, neck pain, shoulder pain, back pain, hand pain, leg pain, foot pain Skin: No: Rash, Lesions, Jaundice, Bruising, Other Neurological: No: Weakness, Numbness, Incoordination, Change in speech, Confusion, Seizures, Other Allergies: Coded Allergies: Penicillins (Verified Allergy, Unknown, 03/31/19) Sulfa Drugs (Verified Allergy, Unknown, 03/31/19) Medications Current Medications Medications Dose Ordered Sig/Humera Route Start Time Stop Time Status Last Admin Dose Admin Diagnostic Test (Pha) 1 strip ACHS 12/14/24 17:00 Insulin Human Regular ACHS SC 12/14/24 17:00 Dextrose 50 ml UD PRN IV 12/14/24 13:45 Exam Vital Signs Vital Signs Date Time Temp Pulse Resp B/P (MAP) Pulse Ox O2 Delivery O2 Flow Rate FiO2 12/14/24 14:00 76 11 95/41 (59) 96 12/14/24 10:05 98.5 98.5 12/14/24 10:00 Room Air* 0 21 General Appearance: Alert, Oriented X3, Cooperative, No acute distress HEENT: Atraumatic, PERRLA, EOMI, Mucous membr. moist/pink Respiratory: Clear to auscultation, Normal air movement Cardiovascular: Regular rate, Normal S1, Normal S2, No murmurs Abdominal: Normal bowel sounds, Soft, No tenderness, No hepatospenomegaly, No masses Extremities: No clubbing, No cyanosis, No edema, Normal pulses, No tenderness/swelling Skin: No rashes, No breakdown, No significant lesion Neuro: Normal gait, Normal speech, Strength at 5/5 X4 ext, Normal tone, Sensation intact Psych/Mental Status: Mental status NL, Mood NL Labs/Xrays Labs Test 12/14/24 13:11 12/14/24 09:50 Range/Units Troponin I High Sensitivity < 3 L </=34 ng/L White Blood Count 4.4 4.4-10.8 10^3/uL Red Blood Count 5.51 H 4.0-5.20 10^6/uL Hemoglobin 14.1 12.2-16.2 g/dL Hematocrit 43.2 36.0-46.0 % Mean Corpuscular Volume 78.4 L 80.0-100.0 fL Mean Corpuscular Hemoglobin 25.7 L 28.0-32.0 pg Mean Corpuscular Hemoglobin Concent 32.8 32.0-36.0 g/dL Red Cell Distribution Width 16.0 H 11.8-14.3 % Platelet Count 254 140-450 10^3/uL Mean Platelet Volume 7.6 6.9-10.8 fL Neutrophils (%) (Auto) 54.2 37.0-80.0 % Lymphocytes (%) (Auto) 32.9 10.0-50.0 % Monocytes (%) (Auto) 8.0 0.0-12.0 % Eosinophils (%) (Auto) 3.6 0.0-7.0 % Basophils (%) (Auto) 1.3 0.0-2.0 % Neutrophils # (Auto) 2.4 1.6-8.6 10 ^3/uL Lymphocytes # (Auto) 1.5 0.4-5.4 10 ^3/uL Monocytes # (Auto) 0.4 0-1.3 10 ^3/uL Eosinophils # (Auto) 0.2 0-0.8 10 ^3/uL Basophils # (Auto) 0.1 0-0.2 10 ^3/uL Nucleated Red Blood Cells 0.0 % Prothrombin Time 10.4 9.3-11.8 sec Prothrombin Time INR 0.98 0.9-1.15 Activated Partial Thromboplast Time 27.1 24.5-34.5 SEC Sodium Level 139 136-145 mmol/L Potassium Level 3.9 3.5-5.1 mmol/L Chloride Level 104 98-107 mmol/L Carbon Dioxide Level 27 20-31 mmol/L Anion Gap 8 5-15 Blood Urea Nitrogen 9 9-23 mg/dL Creatinine 0.57 0.550-1.02 mg/dL Glomerular Filtration Rate Calc 95 >90 mL/min BUN/Creatinine Ratio 15.8 10.0-20.0 Serum Glucose 132 H 74-106 mg/dL Calcium Level 10.3 8.7-10.4 mg/dL Magnesium Level 2.1 1.6-2.6 mg/dL Total Bilirubin 0.7 0.2-1.0 mg/dL Aspartate Amino Transferase (AST) 21 13-40 U/L Alanine Aminotransferase (ALT) 10 7-40 U/L Alkaline Phosphatase 82 46-116 U/L B-Type Natriuretic Peptide 28.40 0-100 pg/mL Total Protein 7.6 5.7-8.2 g/dL Albumin 5.3 H 3.2-4.8 g/dL XY CHEST PORTABLE, HISTORY: CHEST PAIN COMPARISON: XY CHEST PORTABLE on DOS: 03/16/24, XY CHEST PORTABLE on DOS: 04/28/23, XY CHEST PORTABLE on DOS: 04/14/23 XY CHEST PORTABLE on DOS: 03/16/24, XY CHEST PORTABLE on DOS: 04/28/23, XY CHEST PORTABLE on DOS: 04/14/23 TECHNICAL DATA: 1 view of the chest was obtained. FINDINGS: Lines and tubes: None Cardiomediastinal silhouette: normal Pulmonary vasculature: normal Lung expansion: low Lung airspace: normal Lung interstitium: normal Pleura: normal Pneumothorax: no Bones: Unremarkable Other: no IMPRESSION: No acute intrathoracic abnormality. Assessment/Plan Assessment/Plan Assessment/Plan: Chest pain rule out coronary ischemia History of CAD History of angio in 2018 Glucosuria Ketonuria Gardner catheter Pain management Antiemetics EKG Troponin negative x2 UA BNP PT/PTT Mag level Chest x-ray noted Lipid panel TSH UDS BNP Labs A.m. labs Echo ordered Last echo on 11/09/2021 EF of 65% NPO IV fluids Cardiology consult ACS protocol Aspirin Statin ANA Diabetes type 2 Hemoglobin A1c ISS and Accu-Cheks Chronic hypertension Continue home meds Chronic hyperlipidemia Continue home medications Chronic asthma P.r.n. 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 Procedure Category Date Status Time Thyroid Stimulating LAB 12/14/24 In Process Hormone 13:42 Drug Screen LAB 12/14/24 Logged 13:42 Hemoglobin A1c LAB 12/14/24 In Process 13:42 Glucose Blood PHA 12/14/24 In Process (Accu-Chek Comfort 17:00 Insulin R (Human) PHA 12/14/24 In Process (Insulin R) 17:00 Dextrose 50% Syringe PHA 12/14/24 In Process 13:45 Echo 2d Mode Cardiac US 12/14/24 Logged DOP 13:42 * Cardiology Consult CONS 12/14/24 Verified 14:29 Admit ADMIT 12/14/24 Verified 14:29 Code Status CODE 12/14/24 Verified 14:29 Vital Signs [facility] 12/14/24 Verified 14:29 Tape Maker [facility] 12/14/24 Verified 14:29 0.9%Ns 1000 Ml PHA 12/14/24 Verified 14:30 Aspirin Tablet PHA 12/15/24 Verified 10:00 Lipitor 40mg Hs PHA 12/14/24 Verified Hi-Intensity 22:00 Morphine Sulfate PHA 12/14/24 Verified Injection 14:30 Acetaminophen Tablet PHA 12/14/24 Verified (Tylenol Tablet) 14:30 Complete Blood Count LAB 12/15/24 Verified 04:00 Comprehensive LAB 12/15/24 Verified Metabolic Panel 04:00 Chest Xray 1 View XY 12/15/24 Verified 06:00 Nitroglycerin PHA 12/14/24 Verified Sublingual (Ntrostat 14:30 Ondansetron Hcl [facility] 12/14/24 Verified (Zofran) 14:30 Electrocardigram EKG 12/15/24 Verified 04:00 Troponin-I Hs LAB 12/14/24 Verified 14:29 Cardiac [facility] 12/14/24 Verified Rehabilitation - Outpa Nitroglycerin [facility] 12/14/24 Verified Sublingual (Ntrostat 14:30 Morphine Sulfate [facility] 12/14/24 Verified Injection 14:30 Stat Ekg For Chest [facility] 12/14/24 Verified Pain 14:29 Notify Md Of Changes [facility] 12/14/24 Verified From Base 14:29 Tile Setter For [facility] 12/14/24 Verified 24 Hours 14:29 Emergency Dysrhythmia [facility] 12/14/24 Verified Protocol 14:29 Rhythm Strips Once [facility] 12/14/24 Verified Every Shift 14:29 Oxygen By Nasal RT 12/14/24 Verified Cannula 14:29 B-Type Natriuretic LAB 12/14/24 Verified Peptide 14:29 Date of Service: Dec 14, 2024 Billing Provider: DARCI BARNARD Common Visit Codes: [id number] INP/OBS CARE (HIGH) DARCI BARNARD Dec 14, 2024 14:33
--- NOTE | 2024-12-14 15:17 | DVHINCON2 ---
[facility] 12/14/24 1517: Date Seen: Dec 14, 2024 Referring Physician LISA Vigil Reason for Consultation Chest pain History of Present Illness This is a 74-year-old female who presented to the emergency room via EMS with a chief complaint of chest pain. She was medicated with ASA 324 mg and Zofran 4 mg en route to the hospital. Describes her chest pain as left-sided, non provoked, pressure-like, and radiating to her left arm and left mid-upper back. Inspiration and arm movement makes the pain worse. She underwent multiple 12 lead electrocardiogram revealing a normal sinus rhythm without evidence of ischemia. Serial troponin levels are negative. Reports undergoing a recent cardiac catheterization and coronary angiogram without catheter based intervention at [facility] with Dr. West on 05/2024. Follows up in the outpatient setting with Dr. West with upcoming appointment next month. Significant medical history includes hypertension, dyslipidemia, xve-[id number] diabetes mellitus, GERD, COPD, and history of breast cancer status post right mastectomy. Past Medical History Past medical history reviewed. No other significant than mentioned above. Past Surgical History Right breast mastectomy Knee surgery Family History: Alcoholism Family history: Cardiovascular disease G8 MOTHER, , Cause: Myocardial infarct G8 FATHER, , Cause: Myocardial infarct Family history: Diabetes mellitus G8 MOTHER, , Cause: Myocardial infarct Family history: Hypertension G8 MOTHER, , Cause: Myocardial infarct Ischemic heart disease G8 FATHER, , Cause: Myocardial infarct Family History Family history reviewed. Social History Denies the use of illicit drugs, alcohol, or tobacco use. Allergies: Coded Allergies: Penicillins (Verified Allergy, Unknown, 03/31/19) Sulfa Drugs (Verified Allergy, Unknown, 03/31/19) Home Meds Active Scripts Lactulose (Lactulose) 10 Gm Eleazar, 10 GM PO DAILY PRN, #120 PACK Prov:AYAH BERUMEN MD 07/29/24 Docusate Sodium (Colace) 100 Mg Cap, 1 CAP PO BID, #30 CAP Prov:AYAH BERUMEN MD 07/29/24 Pantoprazole Sodium Sesquihydr (Pantoprazole Sodium) 40 Mg Tab, 40 MG PO DAILY for 5 Days, #5 TAB 0 Refills Prov:DILCIA MARTINEZ 03/17/24 Prednisone (Prednisone) 20 Mg Tab, 20 MG PO DAILY for 5 Days, #2 MG 0 Refills Prov:DILCIA MARTINEZ RESIDENT 03/17/24 Docusate Sodium (Colace) 100 Mg Cap, 1 CAP PO BID for 10 Days, #20 CAP Prov:ONDINA GUERRA MD 04/28/23 Sucralfate (Carafate) 1 Gm/10 Ml Annie, 10 ML PO BID, #120 ML 1 Refill Prov:ISMAEL BATES MD 11/09/21 Pantoprazole Sodium Sesquihydr (Pantoprazole Sodium) 40 Mg Tab, 40 MG PO BID, #90 TAB Prov:ISMAEL BATES MD 11/09/21 Reported Medications Losartan Potassium (Losartan Potassium) 50 Mg Tab, 50 MG PO DAILY for 30 Days, MG 11/09/21 Docusate Sodium (Dok) 100 Mg Cap, 100 MG PO DAILY, CAP 09/19/20 Albuterol Sulfate (VENTOLIN MDI) 90 Mcg Ih, 2 PUFF IN Q6HP PRN for SHORTNESS OF BREATH, INH 09/19/20 Metformin Hydrochloride (Metformin Hcl) 850 Mg Tab, 1 TAB PO TID, #60 TAB 5 Refills 09/19/20 Glipizide (Glipizide) 5 Mg Tab, 5 MG PO DAILY, MG 09/19/20 Canagliflozin (INVOKANA) 100 Mg Tab, 100 MG PO DAILY, TAB 09/19/20 Amlodipine Besylate (Amlodipine Besylate) 10 Mg Tab, 1 TAB PO DAILY, #30 TAB 5 Refills 09/19/20 Metoprolol Tartrate (Metoprolol Tartrate) 100 Mg Tab, 1 TAB PO BID, #60 TAB 5 Refills 09/19/20 Liraglutide (Victoza) 18 Mg/3 Ml Inj, 1.2 MG SUBCUT HS, #9 ML 3 Refills 09/19/20 Gabapentin (Gabapentin) 400 Mg Cap, 400 MG PO TID 03/03/18 Simvastatin (Simvastatin) 20 Mg Tab, 20 MG PO HS 03/13/11 Home Meds Home medications reviewed. Current Medications Current Medications Medications (Trade) Dose Ordered Sig/Humera Route PRN Reason Start Time Stop Time Status Last Admin Diagnostic Test (Pha) (Accu-Chek Comfort Curve T) 1 strip ACHS 12/14/24 17:00 Insulin Human Regular (InsuLIN R) ACHS SC 12/14/24 17:00 Dextrose 50 ml UD PRN IV Blood Sugar LESS THAN 60 12/14/24 13:45 Sodium Chloride 1,000 ml @ 75 mls/hr [id number] IV 12/14/24 14:30 Aspirin 81 mg DAILY PO 12/15/24 10:00 Atorvastatin Calcium (Lipitor) 40 mg HS PO 12/14/24 22:00 Morphine Sulfate 2 mg Q30MP PRN IV FOR CHEST PAIN 12/14/24 14:30 12/14/24 14:38 DC Acetaminophen (Tylenol Tablet) 650 mg Q6HP PRN PO MILD PAIN (1-3 PAIN SCALE) 12/14/24 14:30 Nitroglycerin (Ntrostat Sublingual) 0.4 mg Q5MINP PRN SL FOR CHEST PAIN 12/14/24 14:30 12/14/24 14:38 DC Ondansetron HCl (Zofran) 4 mg Q4HP PRN IV NAUSEA / VOMITING 12/14/24 14:30 Nitroglycerin (Ntrostat Sublingual) 0.4 mg Q5MINP PRN SL FOR CHEST PAIN 12/14/24 14:30 Morphine Sulfate 2 mg Q30M PRN IV FOR CHEST PAIN 12/14/24 14:30 Review of Systems Constitutional: No symptom reported Ears, Nose, & Throat: No symptom reported Eyes: No symptom reported Neurological: No symptoms reported Pulmonary/Respiratory: No symptom reported Cardiovascular: Chest pain Gastrointestinal: No symptom reported Genitourinary: No symptom reported Musculoskeletal: No symptom reported Skin: No symptom reported Psychiatric: No symptom reported Endocrine: No symptom reported Hemotologic/Lymphatic: No symptom reported Vital Signs Vital Signs Date Time Temp Pulse Resp B/P (MAP) Pulse Ox O2 Delivery O2 Flow Rate FiO2 12/14/24 14:00 76 11 95/41 (59) 96 12/14/24 14:00 Nasal Cannula* 2 28 12/14/24 10:05 98.5 98.5 Physical Exam General Appearance: Cooperative. Well developed. Well nourished. In no acute distress Head Exam: Normal inspection Neck Exam: Normal inspection. Non-tender. Normal alignment Pulmonary/Respiratory: Chest tender. Clear bilateral breath sounds Cardiovascular/Chest: Regular rate and rhythm. S1, S2. NSR. No murmurs. No JVD. Peripheral Pulses: 2+ Radial (R). 2+ Radial (L). 2+ Pedal (R). 2+ Pedal (L) Abdominal Exam: Normal bowel sounds. Soft. Nontender. No hepatospenomegaly. No masses Ankle Exam: Negative ankle edema Lower extremities: Negative lower extremity edema Neuro/Mental Status: A&O x4. Coherent Thoughts/Psych: Normal thought pattern. Appropriate mood and affect. Good judgement and insight Appearance: In no acute distress Skin Exam: Normal inspection. Normal color. Warm. Dry Labs/Diagnostic Data Labs Test 12/14/24 13:11 12/14/24 09:50 Range/Units Troponin I High Sensitivity < 3 L </=34 ng/L White Blood Count 4.4 4.4-10.8 10^3/uL Red Blood Count 5.51 H 4.0-5.20 10^6/uL Hemoglobin 14.1 12.2-16.2 g/dL Hematocrit 43.2 36.0-46.0 % Mean Corpuscular Volume 78.4 L 80.0-100.0 fL Mean Corpuscular Hemoglobin 25.7 L 28.0-32.0 pg Mean Corpuscular Hemoglobin Concent 32.8 32.0-36.0 g/dL Red Cell Distribution Width 16.0 H 11.8-14.3 % Platelet Count 254 140-450 10^3/uL Mean Platelet Volume 7.6 6.9-10.8 fL Neutrophils (%) (Auto) 54.2 37.0-80.0 % Lymphocytes (%) (Auto) 32.9 10.0-50.0 % Monocytes (%) (Auto) 8.0 0.0-12.0 % Eosinophils (%) (Auto) 3.6 0.0-7.0 % Basophils (%) (Auto) 1.3 0.0-2.0 % Neutrophils # (Auto) 2.4 1.6-8.6 10 ^3/uL Lymphocytes # (Auto) 1.5 0.4-5.4 10 ^3/uL Monocytes # (Auto) 0.4 0-1.3 10 ^3/uL Eosinophils # (Auto) 0.2 0-0.8 10 ^3/uL Basophils # (Auto) 0.1 0-0.2 10 ^3/uL Nucleated Red Blood Cells 0.0 % Prothrombin Time 10.4 9.3-11.8 sec Prothrombin Time INR 0.98 0.9-1.15 Activated Partial Thromboplast Time 27.1 24.5-34.5 SEC Sodium Level 139 136-145 mmol/L Potassium Level 3.9 3.5-5.1 mmol/L Chloride Level 104 98-107 mmol/L Carbon Dioxide Level 27 20-31 mmol/L Anion Gap 8 5-15 Blood Urea Nitrogen 9 9-23 mg/dL Creatinine 0.57 0.550-1.02 mg/dL Glomerular Filtration Rate Calc 95 >90 mL/min BUN/Creatinine Ratio 15.8 10.0-20.0 Serum Glucose 132 H 74-106 mg/dL Hemoglobin A1c 8.0 H <5.7 % A1C Calcium Level 10.3 8.7-10.4 mg/dL Magnesium Level 2.1 1.6-2.6 mg/dL Total Bilirubin 0.7 0.2-1.0 mg/dL Aspartate Amino Transferase (AST) 21 13-40 U/L Alanine Aminotransferase (ALT) 10 7-40 U/L Alkaline Phosphatase 82 46-116 U/L B-Type Natriuretic Peptide 28.40 0-100 pg/mL Total Protein 7.6 5.7-8.2 g/dL Albumin 5.3 H 3.2-4.8 g/dL Thyroid Stimulating Hormone (TSH) 1.74 0.55-4.78 uIU/mL Assessment Noncardiac chest pain, likely musculoskeletal Hypertension Dyslipidemia Bms-dluluzw-taonfqheg diabetes mellitus COPD Plan/Recommendation (Dr. West) The patient with noncardiac chest pain underwent a transthoracic echocardiogram revealing an EF of 60% with mild LVH and left atrial enlargement. She reports undergoing a cardiac catheterization without catheter based intervention given not significant coronary artetry disease on 05/2024. Continue lipid lowering agent, single-antiplatelet therapy, and blood pressure control. Follow-up with Dr. West as scheduled next month. There is no further cardiac workup indicated at this time. Thank you for allowing us to participate in this patient's care. Please call if you have any questions or concerns. This medical document was created using an electronic medical record system with voice recognition software and computerized dictation system. Although this document has been carefully reviewed, there might still be some phonetic and typographical errors. Occasional wrong-word or ``sound-alike substitutions may have occurred due to the inherent limitations of voice recognition software. These areas are purely typographical due to imperfections of the software programs and do not reflect any compromise in the patient's medical care. Please read the chart carefully and recognize, using context, where these substitutions have occurred. Plan discussed with: Patient, Spouse, Other NYHA Physical activity limitations: NA Date of Service: Dec 14, 2024 Billing Provider: MARISOL DANGELO TELEGRAPH INSPECTOR Cardiology Common Codes: [id number] INP/OBS CARE (High) JUICE WEST MD 12/14/24 1719: Family History: Alcoholism Family history: Cardiovascular disease G8 MOTHER, , Cause: Myocardial infarct G8 FATHER, , Cause: Myocardial infarct Family history: Diabetes mellitus G8 MOTHER, , Cause: Myocardial infarct Family history: Hypertension G8 MOTHER, , Cause: Myocardial infarct Ischemic heart disease G8 FATHER, , Cause: Myocardial infarct Allergies: Coded Allergies: Penicillins (Verified Allergy, Unknown, 03/31/19) Sulfa Drugs (Verified Allergy, Unknown, 03/31/19) Home Meds Active Scripts Lactulose (Lactulose) 10 Gm Eleazar, 10 GM PO DAILY PRN, #120 PACK Prov:AYAH BERUMEN MD 07/29/24 Docusate Sodium (Colace) 100 Mg Cap, 1 CAP PO BID, #30 CAP Prov:AYAH BERUMEN MD 07/29/24 Pantoprazole Sodium Sesquihydr (Pantoprazole Sodium) 40 Mg Tab, 40 MG PO DAILY for 5 Days, #5 TAB 0 Refills Prov:DILCIA MARTINEZ RESIDENT 03/17/24 Prednisone (Prednisone) 20 Mg Tab, 20 MG PO DAILY for 5 Days, #2 MG 0 Refills Prov:DILCIA MARTINEZ RESIDENT 03/17/24 Docusate Sodium (Colace) 100 Mg Cap, 1 CAP PO BID for 10 Days, #20 CAP Prov:ONDINA GUERRA MD 04/28/23 Sucralfate (Carafate) 1 Gm/10 Ml Annie, 10 ML PO BID, #120 ML 1 Refill Prov:ISMAEL BATES MD 11/09/21 Pantoprazole Sodium Sesquihydr (Pantoprazole Sodium) 40 Mg Tab, 40 MG PO BID, #90 TAB Prov:ISMAEL BATES MD 11/09/21 Reported Medications Losartan Potassium (Losartan Potassium) 50 Mg Tab, 50 MG PO DAILY for 30 Days, MG 11/09/21 Docusate Sodium (Dok) 100 Mg Cap, 100 MG PO DAILY, CAP 09/19/20 Albuterol Sulfate (VENTOLIN MDI) 90 Mcg Ih, 2 PUFF IN Q6HP PRN for SHORTNESS OF BREATH, INH 09/19/20 Metformin Hydrochloride (Metformin Hcl) 850 Mg Tab, 1 TAB PO TID, #60 TAB 5 Refills 09/19/20 Glipizide (Glipizide) 5 Mg Tab, 5 MG PO DAILY, MG 09/19/20 Canagliflozin (INVOKANA) 100 Mg Tab, 100 MG PO DAILY, TAB 09/19/20 Amlodipine Besylate (Amlodipine Besylate) 10 Mg Tab, 1 TAB PO DAILY, #30 TAB 5 Refills 09/19/20 Metoprolol Tartrate (Metoprolol Tartrate) 100 Mg Tab, 1 TAB PO BID, #60 TAB 5 Refills 09/19/20 Liraglutide (Victoza) 18 Mg/3 Ml Inj, 1.2 MG SUBCUT HS, #9 ML 3 Refills 09/19/20 Gabapentin (Gabapentin) 400 Mg Cap, 400 MG PO TID 03/03/18 Simvastatin (Simvastatin) 20 Mg Tab, 20 MG PO HS 03/13/11 Plan/Recommendation patient had cardiac cath with me in 2023 showing moderate non critical CAD at [facility] outpatient follow pup MARISOL DANGELO Dec 14, 2024 15:17 JUICE WEST MD Dec 14, 2024 17:19
[2024-12-14] MEDS: SODIUM CHLORIDE 0.9% 1,000 ML IV SCH (15:30)
[2024-12-14] MEDS ORDERED: IPRATROPIUM BROM 0.5 MG/2.5ML INH SOL NEB PRN (15:30)
[2024-12-14] MEDS ORDERED: ALBUTEROL SULF 2.5 MG/0.5ML(0.5%) NEB SOLN NEB PRN (15:30)
--- NOTE | 2024-12-14 15:49 | DVHSR ---
APPROVED REPORT EXAM: Two-dimensional and M-mode echocardiogram with Doppler and color Doppler. Blood Pressure: 109/43 mmHg INDICATION Chest Pain RISK FACTORS Height: 61, Weight: 110 DIMENSIONS LVDd4.2 (3.8-5.7cm)LA (2D)3.7 (1.9-4.0cm)Aortic Root3.4 (2.0-3.7cm) LVDs2.9 (2.5-4.0cm)LA (MM) (1.9-4.0cm)Aortic Cusp Exc1.7 (1.5-2.0cm) EF (%) 58.0 (55-70%)Rt. Atrium3.1 (1.9-4.0cm)Asc. Aorta cm Mitral Valve MitralMitral Stenosis E wave0.60m/sMV Mean GR.mmHg A wave0.95m/sMV Peak GR.mmHg E/A ratio0.62D MVAcm2 DECEL [id number] 1/2 Etry24pq IVRTmsDop MVA2.83cm2 Aortic Valve Aortic ValveAortic Stenosis V10.94m/Cammy Mean GR.4mmHg V21.34m/Cammy Peak GR.7mmHg LVOT Diameter1.7 (1.8-2.4cm)Doppler AVA1.59cm2 Pulmonic Valve V20.73m/s Tricuspid Valve TR Velocity2.07m/s [id number] Conclusion lvef 60% by visual estimate mild LVH left atrium enlarged no severe valve abnormalities noted
[2024-12-14 16:10] LABS: Urine Bacteria None Seen /hpf (None Seen); Urine WBC None Seen /hpf (0 - 5)
[2024-12-14 16:29] LABS: Urine Blood Negative /uL (Negative); Urine Clarity Clear (Clear); Urine Color Colorless (Yellow); Urine Protein, UAD Negative (Negative); Urine Specific Gravity 1.015 (1.001-1.035); Urine Squamous Epithelial Cell None Seen /hpf (<5); Urine Urobilinogen Normal (Negative); Urine pH 7.5 (5.0-9.0)
[2024-12-14 16:48] LABS: Opiate Scree,Urine Neg (NEGATIVE)
[2024-12-14 16:52] LABS: Amphetamine Screen, Urine Neg (NEGATIVE); Barbiturate Scree,Urine Neg (NEGATIVE); Benzodiazephine Screen, Urine Neg (NEGATIVE); Cocaine Screen, Urine Neg (NEGATIVE); Phencyclidine Screen, Urine Neg (NEGATIVE)
[2024-12-14 16:53] LABS: Cannabinoid Screen, Urine Neg (NEGATIVE)
[2024-12-14] MEDS: ACCU-CHEK COMFORT CURVE STRIP VI SCH (17:00)
[2024-12-14] MEDS: InsuLIN REG 1unit/0.01ml Soln (100units/ml) SC SCH (17:00)
[2024-12-14] MEDS: ACETAMINOPHEN 325 MG TAB PO PRN (22:08)
[2024-12-14] MEDS: ATORVASTATIN 20 MG TAB PO SCH (22:09)
[2024-12-15] VITALS (12 sets, daily range): BP systolic 104–127; BP diastolic 41–61; PULSE 81–99; RESP 15–20; TEMP 97.6–98.3; O2SAT 93–97
--- NOTE | 2024-12-15 05:44 | DVH ---
CHEST RADIOGRAPH Indication: CHEST PAIN Technique: Single frontal view of the chest was obtained Comparison: XY CHEST PORTABLE on DOS: 12/14/24, XY CHEST PORTABLE on DOS: 03/16/24, XY CHEST PORTABLE o n DOS: 04/28/23 IMPRESSION: Heart is stable in size. The lungs appear clear without focal airspace opacity, effusion, or pneumot horax. Surgical clips are noted. Aortic arch calcifications.
[2024-12-15 06:39] LABS: Eosinophils # (auto) 0.2 10 ^3/uL (0-0.8); Hematocrit 38.8 % (36.0-46.0); Hemoglobin 12.4 g/dL (12.2-16.2); Lymphocytes % (auto) 34.7 % (10.0-50.0); Neutrophils # (auto) 2.7 10 ^3/uL (1.6-8.6); Nucleated Red Blood Cells % 0.1 %
[2024-12-15 06:42] LABS: Basophils # (auto) 0 10 ^3/uL (0-0.2); Basophils % (auto) 0.9 % (0.0-2.0); Eosinophils % (auto) 3.5 % (0.0-7.0); Lymphocytes # (auto) 1.8 10 ^3/uL (0.4-5.4); Mean Corpuscular Hemoglobin 25.5 pg (28.0-32.0); Mean Corpuscular Hgb Conc. 32.1 g/dL (32.0-36.0); Mean Corpuscular Volume 79.6 fL (80.0-100.0); Monocytes # (auto) 0.5 10 ^3/uL (0-1.3); Monocytes % (auto) 10.3 % (0.0-12.0); Neutrophils % (auto) 50.6 % (37.0-80.0); Platelet Count (auto) 228 10^3/uL (140-450); Red Blood Cells 4.87 10^6/uL (4.0-5.20); White Blood Cell 5.3 10^3/uL (4.4-10.8)
[2024-12-15 06:59] LABS: Alkaline Phosphatase 54 U/L (46-116); Anion Gap 10 (5-15); BUN/Creatinine Ratio 21.1 (10.0-20.0); Blood Urea Nitrogen 12 mg/dL (9-23); Calcium 9.6 mg/dL (8.7-10.4); Carbon Dioxide 25 mmol/L (20-31); Chloride 106 mmol/L (98-107); Glucose 106 mg/dL (74-106); Potassium 3.7 mmol/L (3.5-5.1); Sodium 141 mmol/L (136-145)
[2024-12-15 07:00] LABS: Albumin 4.4 g/dL (3.2-4.8); Aspartate Aminotransferase 19 U/L (13-40); Bilirubin, Total 0.5 mg/dL (0.2-1.0); Total Protein 6.4 g/dL (5.7-8.2)
[2024-12-15 07:06] LABS: Alanine Aminotransferase < 9 U/L (7-40)
[2024-12-15] MEDS: ASPirin 81 mg TAB PO SCH (08:37)
--- NOTE | 2024-12-15 13:10 | DVHPN2 ---
Progress Note Date Seen: Dec 15, 2024 Medical Necessity Reason Pt with a Central, PICC or Fol: No Subjective Patient reports: Feels better Objective vital signs Vital Sign Date Time Temp Pulse Resp B/P (MAP) Pulse Ox O2 Delivery O2 Flow Rate FiO2 12/15/24 11:44 97.6 85 15 105/45 (65) 94 97.6 12/15/24 11:04 Room Air* 0 21 Total Intake and Output 12/14/24 12/14/24 12/15/24 15:00 23:00 07:00 Intake Total 75 ml 0 ml Output Total 250 ml 350 ml Balance -175 ml -350 ml medications Current Medications Medications Dose Ordered Sig/Humera Route Start Time Stop Time Status Last Admin Dose Admin Diagnostic Test (Pha) 1 strip ACHS 12/14/24 17:00 12/15/24 11:51 1 STRIP Insulin Human Regular ACHS SC 12/14/24 17:00 12/15/24 11:52 6 UNITS Dextrose 50 ml UD PRN IV 12/14/24 13:45 Sodium Chloride 1,000 ml @ 75 mls/hr [id number] IV 12/14/24 14:30 12/15/24 08:37 75 MLS/HR Aspirin 81 mg DAILY PO 12/15/24 10:00 12/15/24 08:37 81 MG Atorvastatin Calcium 40 mg HS PO 12/14/24 22:00 12/14/24 22:09 40 MG Acetaminophen 650 mg Q6HP PRN PO 12/14/24 14:30 12/15/24 05:59 650 MG Ondansetron HCl 4 mg Q4HP PRN IV 12/14/24 14:30 Nitroglycerin 0.4 mg Q5MINP PRN SL 12/14/24 14:30 Morphine Sulfate 2 mg Q30M PRN IV 12/14/24 14:30 Albuterol 2.5 mg Q4HPRN PRN NEB 12/14/24 15:30 Ipratropium [place] 0.5 mg Q4HPRN PRN NEB 12/14/24 15:30 Examination: GENERAL:Abnormal, HEENT:Abnormal, LUNGS:Abnormal, CVS:Abnormal, ABDOMEN:Abnormal laboratory and microbiology Laboratory Tests 12/15/24 05:06 Test 12/15/24 05:06 Range/Units Serum Glucose 106 74-106 mg/dL Problem List/Assessment/Plan Problem List/Assessment/Plan chest pain cad htn HL acs ruled out [facility] 2023--moderate non obstructive CAD outpt fu , asa statin Plan discussed with: Patient Date of Service: Dec 15, 2024 Billing Provider: JUICE WEST MD Common Visit Codes: NOT BILLABLE JUICE WEST MD Dec 15, 2024 13:10
--- NOTE | 2024-12-15 14:25 | DVHPN2 ---
Reviewed: Care Plan, H&P, Labs, Medications, Previous Orders, Radiology Changes from previous H/P or p: No Changes Eyes: No Pain, No Vision change, No Conjunctivae inflammation, No Eyelid inflammation, No Other, No Redness ENT: No Ear pain, No Ear discharge, No Nose pain, No Nose discharge, No Nose congestion, No Mouth pain, No Mouth swelling, No Throat pain, No Throat swelling, No Other Cardiovascular: Chest Pain; No Palpitations, No Orthopnea, No Paroxysmal Noc. Dyspnea, No Edema, No Lt Headedness, No Other Respiratory: No Cough, No Dry; Shortness of breath; No SOB with excertion, No Wheezing, No Hemoptysis, No Pleuritic Pain, No Sputum, No Other Gastrointestinal: Nausea; No Vomiting, No Abdominal Pain, No Diarrhea, No Constipation, No Melena, No Hematochezia, No Other Genitourinary: No Dysuria, No Frequency, No Incontinence, No Hematuria, No Retention, No Other Musculoskeletal: No other, No neck pain, No shoulder pain; arm pain; No back pain, No hand pain, No leg pain, No foot pain Skin: No Rash, No Lesions, No Jaundice, No Bruising, No Other Objective Vitals Vital Signs Date Time Temp Pulse Resp B/P (MAP) Pulse Ox O2 Delivery O2 Flow Rate FiO2 12/15/24 11:44 97.6 85 15 105/45 (65) 94 97.6 12/15/24 11:04 Room Air* 0 21 Intake/Output Intake and Output 12/15/24 07:00 Intake Total 75 ml Output Total 600 ml Balance -525 ml Intake Oral 0 ml IV Total 75 ml Output Urine Total 600 ml # Voids 1 Medications Current Medications Medications Dose Ordered Sig/Humera Route Start Time Stop Time Status Last Admin Dose Admin Diagnostic Test (Pha) 1 strip ACHS 12/14/24 17:00 12/15/24 11:51 1 STRIP Insulin Human Regular ACHS SC 12/14/24 17:00 12/15/24 11:52 6 UNITS Dextrose 50 ml UD PRN IV 12/14/24 13:45 Sodium Chloride 1,000 ml @ 75 mls/hr [id number] IV 12/14/24 14:30 12/15/24 08:37 75 MLS/HR Aspirin 81 mg DAILY PO 12/15/24 10:00 12/15/24 08:37 81 MG Atorvastatin Calcium 40 mg HS PO 12/14/24 22:00 12/14/24 22:09 40 MG Acetaminophen 650 mg Q6HP PRN PO 12/14/24 14:30 12/15/24 05:59 650 MG Ondansetron HCl 4 mg Q4HP PRN IV 12/14/24 14:30 Nitroglycerin 0.4 mg Q5MINP PRN SL 12/14/24 14:30 Morphine Sulfate 2 mg Q30M PRN IV 12/14/24 14:30 Albuterol 2.5 mg Q4HPRN PRN NEB 12/14/24 15:30 Ipratropium [place] 0.5 mg Q4HPRN PRN NEB 12/14/24 15:30 Laboratory Results Laboratory Tests 12/15/24 05:06 Chemistry Test 12/15/24 05:06 Albumin 4.4 g/dL (3.2-4.8) Calcium Level 9.6 mg/dL (8.7-10.4) Total Protein 6.4 g/dL (5.7-8.2) LFT Test 12/15/24 05:06 Alanine Aminotransferase (ALT) < 9 U/L (7-40) Alkaline Phosphatase 54 U/L (46-116) Aspartate Amino Transferase (AST) 19 U/L (13-40) Total Bilirubin 0.5 mg/dL (0.2-1.0) Urinalysis Test 12/14/24 15:46 Urine Color Colorless (Yellow) Urine Clarity Clear (Clear) Urine pH 7.5 (5.0-9.0) Urine Specific [place] 1.015 (1.001-1.035) Urine Protein Negative (Negative) Urine Ketones 1+ (Negative) H Urine Blood Negative /uL (Negative) Urine Nitrite Negative (Negative) Urine Bilirubin Negative (Negative) Urine Urobilinogen Normal mg/dL (Negative) Urine Leukocyte Esterase Negative /uL (Negative) Urine RBC <1 /hpf (0 - 4) Urine WBC None seen /hpf (0 - 5) Urine Squamous Epithelial Cells None seen /hpf (<5) Urine Bacteria None seen /hpf (None Seen) Urine Glucose 4+ mg/dL (Normal) H Labs and/or images reviewed: Labs reviewed by me, Image(s) reviewed by me Assessment/Plan Assessment/Plan Noncardiac chest pain, likely musculoskeletal cardiac catheterization May 2024 neg, cardiology consult by Dr. Bourne. Appreciated Hypertension Dyslipidemia: Lipitor [id number] diabetes mellitus : Insulin sliding scale COPD History of coronary artery disease Time spent 45 minutes Plan discussed with: Patient Date of Service: Dec 15, 2024 Billing Provider: AYAH BERUMEN MD Common Visit Codes: [id number] INP/OBS CARE(HIGH) AYAH BERUMEN MD Dec 15, 2024 14:25
[2024-12-16 01:00] VITALS: BP 122/58; PULSE 92; RESP 18; TEMP 97.7; O2SAT 96
[2024-12-16 05:00] VITALS: BP 124/56; PULSE 91; RESP 19; TEMP 97.8; O2SAT 95
[2024-12-16 07:13] VITALS: O2SAT 96
[2024-12-16 08:00] VITALS: PULSE 85
[2024-12-16 09:00] VITALS: BP 129/49; PULSE 89; RESP 18; TEMP 98.2; O2SAT 96
[2024-12-16 10:00] VITALS: O2SAT 96
--- NOTE | 2024-12-16 10:42 | DVHPN2 ---
Reviewed: Care Plan, H&P, Labs, Medications, Previous Orders, Radiology Changes from previous H/P or p: No Changes Eyes: No Pain, No Vision change, No Conjunctivae inflammation, No Eyelid inflammation, No Other, No Redness ENT: No Ear pain, No Ear discharge, No Nose pain, No Nose discharge, No Nose congestion, No Mouth pain, No Mouth swelling, No Throat pain, No Throat swelling, No Other Cardiovascular: Chest Pain; No Palpitations, No Orthopnea, No Paroxysmal Noc. Dyspnea, No Edema, No Lt Headedness, No Other Respiratory: No Cough, No Dry; Shortness of breath; No SOB with excertion, No Wheezing, No Hemoptysis, No Pleuritic Pain, No Sputum, No Other Gastrointestinal: Nausea; No Vomiting, No Abdominal Pain, No Diarrhea, No Constipation, No Melena, No Hematochezia, No Other Genitourinary: No Dysuria, No Frequency, No Incontinence, No Hematuria, No Retention, No Other Musculoskeletal: No other, No neck pain, No shoulder pain; arm pain; No back pain, No hand pain, No leg pain, No foot pain Skin: No Rash, No Lesions, No Jaundice, No Bruising, No Other Objective Vitals Vital Signs Date Time Temp Pulse Resp B/P (MAP) Pulse Ox O2 Delivery O2 Flow Rate FiO2 12/16/24 10:00 96 Room Air* 0 21 12/16/24 09:00 98.2 89 18 129/49 (75) 98.2 Intake/Output Intake and Output 12/16/24 07:00 Intake Total 2460 ml Output Total 600 ml Balance 1860 ml Intake Oral 710 ml IV Total 1750 ml Output Urine Total 600 ml # Voids 3 Medications Current Medications Medications Dose Ordered Sig/Humera Route Start Time Stop Time Status Last Admin Dose Admin Diagnostic Test (Pha) 1 strip ACHS 12/14/24 17:00 12/16/24 06:11 1 STRIP Insulin Human Regular ACHS SC 12/14/24 17:00 12/16/24 06:11 2 UNITS Dextrose 50 ml UD PRN IV 12/14/24 13:45 Sodium Chloride 1,000 ml @ 75 mls/hr [id number] IV 12/14/24 14:30 12/15/24 08:37 75 MLS/HR Aspirin 81 mg DAILY PO 12/15/24 10:00 12/16/24 08:25 81 MG Atorvastatin Calcium 40 mg HS PO 12/14/24 22:00 12/15/24 21:40 40 MG Acetaminophen 650 mg Q6HP PRN PO 12/14/24 14:30 12/15/24 05:59 650 MG Ondansetron HCl 4 mg Q4HP PRN IV 12/14/24 14:30 Nitroglycerin 0.4 mg Q5MINP PRN SL 12/14/24 14:30 Morphine Sulfate 2 mg Q30M PRN IV 12/14/24 14:30 Albuterol 2.5 mg Q4HPRN PRN NEB 12/14/24 15:30 Ipratropium [place] 0.5 mg Q4HPRN PRN NEB 12/14/24 15:30 Laboratory Results Laboratory Tests 12/15/24 05:06 Urinalysis Test 12/14/24 15:46 Urine Color Colorless (Yellow) Urine Clarity Clear (Clear) Urine pH 7.5 (5.0-9.0) Urine Specific [place] 1.015 (1.001-1.035) Urine Protein Negative (Negative) Urine Ketones 1+ (Negative) H Urine Blood Negative /uL (Negative) Urine Nitrite Negative (Negative) Urine Bilirubin Negative (Negative) Urine Urobilinogen Normal mg/dL (Negative) Urine Leukocyte Esterase Negative /uL (Negative) Urine RBC <1 /hpf (0 - 4) Urine WBC None seen /hpf (0 - 5) Urine Squamous Epithelial Cells None seen /hpf (<5) Urine Bacteria None seen /hpf (None Seen) Urine Glucose 4+ mg/dL (Normal) H Labs and/or images reviewed: Labs reviewed by me, Image(s) reviewed by me Assessment/Plan Assessment/Plan Noncardiac chest pain, likely musculoskeletal cardiac catheterization May 2024 neg, cardiology consult by Dr. Bourne Appreciated Hypertension Dyslipidemia: Lipitor [id number] diabetes mellitus : Insulin sliding scale COPD History of coronary artery disease Time spent 45 minutes Cleared for discharge by Dr. Bourne Plan discussed with: Patient Date of Service: Dec 16, 2024 Billing Provider: AYAH BERUMEN MD Common Visit Codes: [id number] INP/OBS CARE(HIGH) AYAH BERUMEN MD Dec 16, 2024 10:42
--- NOTE | 2024-12-16 10:45 | DVHDS2 ---
Discharge Summary Date of Admission Dec 14, 2024 at 14:29 Date of Discharge: Dec 16, 2024 Admitting Diagnosis Chest pain Wounds: None Labs/Diagnostic Data: Laboratory Results Test 12/16/24 05:45 12/15/24 05:06 12/14/24 15:46 12/14/24 13:11 POC Glucose 140 mg/dl (70-106) White Blood Count 5.3 10^3/uL (4.4-10.8) Red Blood Count 4.87 10^6/uL (4.0-5.20) Hemoglobin 12.4 g/dL (12.2-16.2) Hematocrit 38.8 % (36.0-46.0) Mean Corpuscular Volume 79.6 fL (80.0-100.0) Mean Corpuscular Hemoglobin 25.5 pg (28.0-32.0) Mean Corpuscular Hemoglobin Concent 32.1 g/dL (32.0-36.0) Red Cell Distribution Width 16.0 % (11.8-14.3) Platelet Count 228 10^3/uL (140-450) Mean Platelet Volume 7.8 fL (6.9-10.8) Neutrophils (%) (Auto) 50.6 % (37.0-80.0) Lymphocytes (%) (Auto) 34.7 % (10.0-50.0) Monocytes (%) (Auto) 10.3 % (0.0-12.0) Eosinophils (%) (Auto) 3.5 % (0.0-7.0) Basophils (%) (Auto) 0.9 % (0.0-2.0) Neutrophils # (Auto) 2.7 10 ^3/uL (1.6-8.6) Lymphocytes # (Auto) 1.8 10 ^3/uL (0.4-5.4) Monocytes # (Auto) 0.5 10 ^3/uL (0-1.3) Eosinophils # (Auto) 0.2 10 ^3/uL (0-0.8) Basophils # (Auto) 0 10 ^3/uL (0-0.2) Nucleated Red Blood Cells 0.1 % Sodium Level 141 mmol/L (136-145) Potassium Level 3.7 mmol/L (3.5-5.1) Chloride Level 106 mmol/L (98-107) Carbon Dioxide Level 25 mmol/L (20-31) Anion Gap 10 (5-15) Blood Urea Nitrogen 12 mg/dL (9-23) Creatinine 0.57 mg/dL (0.550-1.02) Glomerular Filtration Rate Calc 95 mL/min (>90) BUN/Creatinine Ratio 21.1 (10.0-20.0) Serum Glucose 106 mg/dL (74-106) Calcium Level 9.6 mg/dL (8.7-10.4) Total Bilirubin 0.5 mg/dL (0.2-1.0) Aspartate Amino Transferase (AST) 19 U/L (13-40) Alanine Aminotransferase (ALT) < 9 U/L (7-40) Alkaline Phosphatase 54 U/L (46-116) Total Protein 6.4 g/dL (5.7-8.2) Albumin 4.4 g/dL (3.2-4.8) Urine Color Colorless (Yellow) Urine Clarity Clear (Clear) Urine pH 7.5 (5.0-9.0) Urine Specific [place] 1.015 (1.001-1.035) Urine Protein Negative (Negative) Urine Ketones 1+ (Negative) Urine Blood Negative /uL (Negative) Urine Nitrite Negative (Negative) Urine Bilirubin Negative (Negative) Urine Urobilinogen Normal mg/dL (Negative) Urine Leukocyte Esterase Negative /uL (Negative) Urine RBC <1 /hpf (0 - 4) Urine WBC None seen /hpf (0 - 5) Urine Squamous Epithelial Cells None seen /hpf (<5) Urine Bacteria None seen /hpf (None Seen) Urine Glucose 4+ mg/dL (Normal) Urine Opiates Screen Neg (NEGATIVE) Urine Fentanyl Screen Neg (NEGATIVE) Urine Barbiturates Screen Neg (NEGATIVE) Urine Phencyclidine Screen Neg (NEGATIVE) Urine Amphetamines Screen Neg (NEGATIVE) Urine Benzodiazepines Screen Neg (NEGATIVE) Urine Cocaine Screen Neg (NEGATIVE) Urine Cannabinoids Screen Neg (NEGATIVE) Troponin I High Sensitivity < 3 ng/L (</=34) Test 12/14/24 09:50 Prothrombin Time 10.4 sec (9.3-11.8) Prothrombin Time INR 0.98 (0.9-1.15) Activated Partial Thromboplast Time 27.1 SEC (24.5-34.5) Hemoglobin A1c 8.0 % A1C (<5.7) Magnesium Level 2.1 mg/dL (1.6-2.6) B-Type Natriuretic Peptide 28.40 pg/mL (0-100) Thyroid Stimulating Hormone (TSH) 1.74 uIU/mL (0.55-4.78) Other Laboratory Tests 12/15/24 05:06 Brief Hx & Hospital Course: 74-year-old female with a history of hypertension diabetes hypercholesterolemia COPD coronary artery disease status post left heart catheterization [address] Bourne found to have nonobstructive moderate coronary artery disease. Troponin negative x3 seen by Cardiology Dr. Bourne advised to continue aspirin Lipitor and discharge the patient home to follow up as an outpatient. Asymptomatic at the time of discharge with stable vital signs. Consults/Reason for consult Cardiology Dr. Bourne Operations or Procedures None Condition at Discharge: Fair Final Diagnosis/Problems List Noncardiac chest pain, likely musculoskeletal cardiac catheterization May 2024 neg, cardiology consult by Dr. Bourne Appreciated Hypertension Dyslipidemia: Lipitor [id number]-[id number] diabetes mellitus : Insulin sliding scale COPD History of coronary artery disease Discharge Disposition: Home Discharge Instruct/Medications Diet: Cardiac 2g Na,low cholest Activity: Light activity Follow Up/Referral: Follow up with your primary Dr Follow up With the Cardiology Dr. Bourne Continued All your previous home medications Medications: none 39 (Time Taken for discharge summary 39 minutes) Discharge Statement: "Patient was advised to return to the ER or call 911 if any headaches, dizziness, shortness of breath, chest pain, abdominal pain, bleeding, fevers, or worsening of medical condition. Patient was counseled about treatment plan, medications, possible side effects, patientverbalized understanding. All questions were answered to the best of my ability. This discharge took greater then 30 minutes in planning, reviewing documentation, counseling the patient, and discussing with other team members." ASSESSMENT ASSESSMENT Hospital Course Improved Assessment Noncardiac chest pain, likely musculoskeletal cardiac catheterization May 2024 neg, cardiology consult by Dr. Bourne Appreciated Hypertension Dyslipidemia: Lipitor [id number] diabetes mellitus : Insulin sliding scale COPD History of coronary artery disease Date of Service: Dec 16, 2024 Billing Provider: AYAH BERUMEN MD Common Visit Codes: [id number] DISCH DAY >30min AYAH BERUMEN MD Dec 16, 2024 10:45
--- NOTE | 2024-12-17 07:22 | ECG ---
[facility] Test Date: 2024-12-14 Test Time: 10:33:57 Pat Name: FRANK MURPHY Department: ER Room: 0248T Gender: F Carbonation Tester: [id number] : 1950 Requested By: JOCY ALVAREZ Order Number: [id number] Reading MD: Measurements Intervals [place] Rate: 71 P: 43 [place]: 172 QRS: 12 QRSD: 77 T: 32 QT: 416 QTc: 453 Interpretive Statements Sinus rhythm Abnormal R-wave progression, early transition Please click the below link to view image of tracing.
--- NOTE | 2024-12-17 07:22 | ECG ---
[facility] Test Date: 2024-12-14 Test Time: 12:31:33 Pat Name: FRANK MURPHY Department: ED Room: 0248T Gender: F Enterostomal Nurse: AMAYA : 1950 Requested By: JOCY ALVAREZ Order Number: [id number] Reading MD: Measurements Intervals [place] Rate: 69 P: 46 [place]: 176 QRS: 17 QRSD: 82 T: 30 QT: 414 QTc: 444 Interpretive Statements Sinus rhythm Abnormal R-wave progression, early transition Please click the below link to view image of tracing.
--- NOTE | 2024-12-17 09:32 | ECG ---
[facility] Test Date: 2024-12-14 Test Time: 09:31:27 Pat Name: FRANK MURPHY Department: er Room: 0248T Gender: F Matrix Repairer: mendy : 1950 Requested By: JOCY ALVAREZ Order Number: [id number] Reading MD: Measurements Intervals [place] Rate: 74 P: 61 [place]: 172 QRS: 42 QRSD: 106 T: 59 QT: 439 QTc: 487 Interpretive Statements Sinus rhythm Low voltage, precordial leads Borderline prolonged QT interval Please click the below link to view image of tracing.
== END 2024-12-16 13:45 | disposition home or self-care (01) | DRG 313 ==
LOC: EDBD 09:28 → ER 09:28 → TELE 14:29 → TELE-EAST 21:28
PROVIDERS: ADMIT Family Medicine; ATTEND Family Medicine
DX: R07.89 Other chest pain (principal); I25.10 Atherosclerotic heart disease of native coronary artery without angina pectoris; E11.9 Type 2 diabetes mellitus without complications; J44.89 Other specified chronic obstructive pulmonary disease; K21.9 Gastro-esophageal reflux disease without esophagitis; G25.81 Restless legs syndrome; I10 Essential (primary) hypertension; E78.00 Pure hypercholesterolemia, unspecified; Z79.84 Long term (current) use of oral hypoglycemic drugs; Z88.0 Allergy status to penicillin; Z90.11 Acquired absence of right breast and nipple; Z85.3 Personal history of malignant neoplasm of breast; Z83.3 Family history of diabetes mellitus; Z82.49 Family history of ischemic heart disease and other diseases of the circulatory system; Z79.4 Long term (current) use of insulin
CPT/HCPCS: 36415; 71045; 80053; 80307; 81001; 82962; 83036; 83735; 83880; 84443; 84484; 85025; 85610; 85730; 93005; 93306; G0378; J1815; J2405

== ENCOUNTER 2025-04-08 12:15 | Emergency (ER) | payer OTHER, MEDICAID ==
[~2025-04-08] VITALS: Ht 157.5 cm; Wt 48.0 kg
--- NOTE | 2025-04-08 12:38 | ED.PDOC ---
History of Present Illness HPI Comments 74 year old female presents to the ED with a chief compliant of hypertension onset today (04/08/25). Patient states she woke up today experiencing headache, checked BP was elevated. She is also experiencing generalized weakness, fatigue, dizziness, abdominal pain and diarrhea. Patient had LT mastectomy removed 1 month ago. PMHx HTN, DM, HLD, GERD, breast cancer, angina, COPD, asthma, arthritis. Denies shortness of breath, fever, nausea, vomiting, chest pain, cough, congestion. No other symptoms or modifying factors present at this time. Time Seen by MD: 12:30 Primary Care Provider: ALCON Aguirre Notes: Medications, Allergies Allergies: Coded Allergies: Penicillins (Verified Allergy, Unknown, 03/31/19) Sulfa Drugs (Verified Allergy, Unknown, 03/31/19) Home Meds Active Scripts Lactulose (Lactulose) 10 Gm Eleazar, 10 GM PO DAILY PRN, #120 PACK Prov:AYAH BERUMEN MD 07/29/24 Docusate Sodium (Colace) 100 Mg Cap, 1 CAP PO BID, #30 CAP Prov:AYAH BERUMEN MD 07/29/24 Pantoprazole Sodium Sesquihydr (Pantoprazole Sodium) 40 Mg Tab, 40 MG PO DAILY for 5 Days, #5 TAB 0 Refills Prov:DILCIA MARTINEZ RESIDENT 03/17/24 Prednisone (Prednisone) 20 Mg Tab, 20 MG PO DAILY for 5 Days, #2 MG 0 Refills Prov:DILCIA MARTINEZ RESIDENT 03/17/24 Docusate Sodium (Colace) 100 Mg Cap, 1 CAP PO BID for 10 Days, #20 CAP Prov:ONDINA GUERRA MD 04/28/23 Sucralfate (Carafate) 1 Gm/10 Ml Annie, 10 ML PO BID, #120 ML 1 Refill Prov:ISMAEL BATES MD 11/09/21 Pantoprazole Sodium Sesquihydr (Pantoprazole Sodium) 40 Mg Tab, 40 MG PO BID, #90 TAB Prov:ISMAEL BATES MD 11/09/21 Reported Medications Losartan Potassium (Losartan Potassium) 50 Mg Tab, 50 MG PO DAILY for 30 Days, MG 11/09/21 Docusate Sodium (Dok) 100 Mg Cap, 100 MG PO DAILY, CAP 09/19/20 Albuterol Sulfate (VENTOLIN MDI) 90 Mcg Ih, 2 PUFF IN Q6HP PRN for SHORTNESS OF BREATH, INH 09/19/20 Metformin Hydrochloride (Metformin Hcl) 850 Mg Tab, 1 TAB PO TID, #60 TAB 5 Refills 09/19/20 Glipizide (Glipizide) 5 Mg Tab, 5 MG PO DAILY, MG 09/19/20 Canagliflozin (INVOKANA) 100 Mg Tab, 100 MG PO DAILY, TAB 09/19/20 Amlodipine Besylate (Amlodipine Besylate) 10 Mg Tab, 1 TAB PO DAILY, #30 TAB 5 Refills 09/19/20 Metoprolol Tartrate (Metoprolol Tartrate) 100 Mg Tab, 1 TAB PO BID, #60 TAB 5 Refills 09/19/20 Liraglutide (Victoza) 18 Mg/3 Ml Inj, 1.2 MG SUBCUT HS, #9 ML 3 Refills 09/19/20 Gabapentin (Gabapentin) 400 Mg Cap, 400 MG PO TID 03/03/18 Simvastatin (Simvastatin) 20 Mg Tab, 20 MG PO HS 03/13/11 Information Source: Patient Mode of Arrival: Ambulatory Severity: Moderate Timing: Hours Duration: Since onset Prehospital treatment: None Past Medical History PAST MEDICAL HISTORY: Angina, Arthritis, Asthma, Cancer, COPD, DM, GERD, High Lipids, HTN, UTI'S Surgical History (Other): mastectomy 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 Pertinent LINEN CONTROLLER History Family History Family History: Reviewed,noncontributory to illness Social History Smoker: Non-Smoker Alcohol: Denies ETOH Use Drugs: Denies Drug Use Lives In: Home Constitutional: reports: fatigue, weakness; denies: chills, diaphoresis, fever, malaise, sweats, others EENTM: denies: blurred vision, double vision, ear bleeding, ear discharge, ear drainage, ear pain, ear ringing, eye pain, eye redness, hearing loss, mouth pain, mouth swelling, nasal discharge, nose bleeding, nose congestion, nose pain, photophobia, tearing, throat pain, throat swelling, voice changes, others Respiratory: denies: cough, hemoptysis, orthopnea, SOB at rest, shortness of breath, SOB with excertion, stridor, wheezing, others Cardiovascular: reports: others (hypertension); denies: chest pain, dizzy spells, diaphoresis, Dyspnea on exertion, edema, irregular heart beat, left arm pain, lightheadedness, palpitations, PND, syncope Gastrointestinal: reports: abdominal pain, diarrhea; denies: abdomen distended, blood streaked bowels, constipated, dysphagia, difficulty swallowing, hematemesis, melena, nausea, poor appetite, poor fluid intake, rectal bleeding, rectal pain, vomiting, others Genitourinary: denies: abnormal vagina bleeding, burning, dyspareunia, dysuria, flank pain, frequency, hematuria, incontinence, pain, , vagina discharge, urgency, others Neurological: reports: dizziness, headache, weakness; denies: fainting, left sided numbness, left sided weakness, numbness, paresthesia, pre-existing deficit, right sided numbness, right sided weakness, seizure, speech problems, tingling, tremors, others Musculoskeletal: denies: back pain, gout, joint pain, joint swelling, muscle pain, muscle stiffness, neck pain, others Integumetry: denies: bruises, change in color, change in hair/nails, dryness, laceration, lesions, lumps, rash, wounds, others Allergic/Immunocompromised: denies: Difficulty Healing, Frequent Infections, Hives, Itching, others Hematologic/Lymphatic: denies: anemia, blood clots, easy bleeding, easy bruising, swollen glands, others Endocrine: denies: excessive hunger, excessive sweating, excessive thirst, excessive urination, flushing, intolerance to cold, intolerance to heat, unexplained weight gain, unexplained weight loss, others Psychiatric: denies: anxiety, bipolar disorder, depression, hopeless, panic disorder, schizophrenia, sleepless, suicidal, others All Other Systems: Reviewed and Negative Physical Exam General Appearance: Moderate Distress, Normal HEENT: Normal ENT Inspection, Pharynx Normal, TMs Normal Neck: Full Range of Motion, Non-Tender, Normal, Normal Inspection Respiratory: Chest Non-Tender, Lungs Clear, No Accessory Muscle Use, No Respiratory Distress, Normal Breath Sounds Cardiovascular: No Edema, No JVD, No Murmur, No Gallop, Normal Peripheral Pulses, Regular Rate/Rhythm Breast Exam: Deferred Gastrointestinal: No Organomegaly, Non Tender, No Pulsatile Mass, Normal Bowel Sounds, Soft Genitalia: Deferred Pelvic: Deferred Rectal: Deferred Extremities: No calf tenderness, Normal capillary refill, Normal inspection, Normal range of motion, Non-tender, No pedal edema Musculoskeletal : Apperance: Normal 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 Was a procedure done?: No EKG EKG : Pulse Rate (adult): 89 Cardiac Rhythm: NSR Differential Dx Considerations may include: Anemia Electrolyte imbalance X-Ray, Labs, Meds, VS Vital Signs Date Time Temp Pulse Resp B/P (MAP) Pulse Ox O2 Delivery O2 Flow Rate FiO2 04/08/25 12:58 89 Lab Test 04/08/25 12:58 Range/Units White Blood Count Pending Red Blood Count Pending Hemoglobin Pending Hematocrit Pending Mean Corpuscular Volume Pending Mean Corpuscular Hemoglobin Pending Mean Corpuscular Hemoglobin Concent Pending Red Cell Distribution Width Pending Platelet Count Pending Mean Platelet Volume Pending Neutrophils (%) (Auto) Pending Lymphocytes (%) (Auto) Pending Monocytes (%) (Auto) Pending Basophils (%) (Auto) Pending Neutrophils # (Auto) Pending Lymphocytes # (Auto) Pending Monocytes # (Auto) Pending Sodium Level Pending Potassium Level Pending Chloride Level Pending Carbon Dioxide Level Pending Anion Gap Pending Blood Urea Nitrogen Pending Creatinine Pending Glomerular Filtration Rate Calc Pending BUN/Creatinine Ratio Pending Serum Glucose Pending Calcium Level Pending Total Bilirubin Pending Aspartate Amino Transferase (AST) Pending Alanine Aminotransferase (ALT) Pending Alkaline Phosphatase Pending Troponin I High Sensitivity Pending Total Protein Pending Albumin Pending Patient alert. Complaining of generalized weakness. Recently had mastectomy. Vitals stable. Unable to ambulate without help. Establish intravenous access. Was given fluids. Reviewed her history. Explained to the patient. Continue monitoring. Time of 1ST Reevaluation: 13:00 Reevaluation 1ST: Unchanged Patient Education/Counseling: Diagnosis, Treatment, Prognosis Family Education/Counseling: Diagnosis, Treatment, Prognosis Departure 1 Departure Time of Disposition: 13:19 Impression: Primary Impression: Generalized weakness Disposition: ADMITTED INPATIENT Admit to: Med Surg Condition: Guarded Critical Care Note Critical Care Time?: No Stability Stability form required: No Heart Score Heart Score: Heart Score Response (Comments) Value History Slightly Suspicious 0 EKG Normal 0 Age >65 2 Risk Factors >3 or Hx ASHD 2 Troponin Normal limit 0 Total 4 I personally scribed for PRAVIN STERN MD ([email or web address]) on 04/08/25 at 12:38. Electronically submitted by Josi Henderson ([email or web address]). I personally scribed for PRAVIN STERN MD ([email or web address]) on 04/08/25 at 12:58. Electronically submitted by Josi Henderson ([email or web address]). PRAVIN STERN MD April 08, 2025 12:38
[2025-04-08] MEDS ORDERED: SODIUM CHLORIDE 0.9% 1,000 ML IV ONE (12:45)
[2025-04-08 13:19] LABS: Basophils # (auto) 0.1 10 ^3/uL (0-0.2); Basophils % (auto) 1.4 % (0.0-2.0); Eosinophils # (auto) 0.1 10 ^3/uL (0-0.8); Eosinophils % (auto) 2.6 % (0.0-7.0); Hematocrit 41.9 % (36.0-46.0); Hemoglobin 13.5 g/dL (12.2-16.2); Lymphocytes # (auto) 1.7 10 ^3/uL (0.4-5.4); Lymphocytes % (auto) 34.2 % (10.0-50.0); Mean Corpuscular Hemoglobin 25.8 pg (28.0-32.0); Mean Corpuscular Hgb Conc. 32.1 g/dL (32.0-36.0); Mean Corpuscular Volume 80.2 fL (80.0-100.0); Monocytes # (auto) 0.4 10 ^3/uL (0-1.3); Monocytes % (auto) 8.4 % (0.0-12.0); Neutrophils # (auto) 2.7 10 ^3/uL (1.6-8.6); Neutrophils % (auto) 53.4 % (37.0-80.0); Platelet Count (auto) 258 10^3/uL (140-450); Red Blood Cells 5.23 10^6/uL (4.0-5.20); Red Cell Distribution Width 15.7 % (11.8-14.3)
[2025-04-08 13:37] LABS: Alanine Aminotransferase 16 U/L (7-40); Alkaline Phosphatase 69 U/L (46-116); Anion Gap 11 (5-15); Aspartate Aminotransferase 19 U/L (13-40); BUN/Creatinine Ratio 19.6 (10.0-20.0); Blood Urea Nitrogen 10 mg/dL (9-23); Calcium 10.4 mg/dL (8.7-10.4); Carbon Dioxide 25 mmol/L (20-31); Chloride 104 mmol/L (98-107); Sodium 140 mmol/L (136-145); Total Protein 7.4 g/dL (5.7-8.2)
[2025-04-08 13:38] LABS: Bilirubin, Total 0.6 mg/dL (0.2-1.0)
[2025-04-08 13:39] LABS: Albumin 5.1 g/dL (3.2-4.8); Glucose 203 mg/dL (74-106)
--- NOTE | 2025-04-08 14:01 | DVH ---
EXAM: XY CHEST PORTABLE Indication: sob Technique: Single frontal view of the chest was obtained Comparison: XY CHEST XRAY 1 VIEW on DOS: 12/15/24, XY CHEST PORTABLE on DOS: 12/14/24, XY CHEST PORTABL E on DOS: 03/16/24, XY CHEST PORTABLE on DOS: 04/28/23, XY CHEST PORTABLE on DOS: 04/14/23 FINDINGS: Lines and Tubes: None Lungs: No focal consolidation. Pleura: No effusion. No pneumothorax. Cardiomediastinal contours: Unremarkable. Atherosclerotic vascular calcifications of the thoracic ao rta are noted. Bones: No acute osseous abnormality. IMPRESSION: No acute cardiopulmonary disease.
[2025-04-08 14:41] VITALS: BP 161/107; PULSE 78; RESP 16; TEMP 98.2; O2SAT 96
--- NOTE | 2025-04-09 08:57 | ECG ---
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
== END 2025-04-08 19:00 | disposition left against medical advice (07) ==
LOC: ER 12:18
DX: R53.1 Weakness (principal); R53.83 Other fatigue; R10.9 Unspecified abdominal pain; R19.7 Diarrhea, unspecified; I10 Essential (primary) hypertension; E11.9 Type 2 diabetes mellitus without complications; E78.5 Hyperlipidemia, unspecified; J44.89 Other specified chronic obstructive pulmonary disease; M19.90 Unspecified osteoarthritis, unspecified site; Z79.84 Long term (current) use of oral hypoglycemic drugs; Z79.899 Other long term (current) drug therapy; Z87.440 Personal history of urinary (tract) infections; Z88.0 Allergy status to penicillin; Z88.2 Allergy status to sulfonamides
CPT/HCPCS: 36415; 71045; 80053; 84484; 85025; 93005

== ENCOUNTER 2025-08-09 18:46 | Emergency (ER) | payer OTHER, MEDICAID ==
[~2025-08-09] VITALS: Ht 157.5 cm; Wt 47.4 kg
--- NOTE | 2025-08-09 19:29 | ED.PDOC ---
SOB-HPI HPI Comments This is a 74 year old female presenting to the ED with chief complaint of SOB. patient reports that she has been experiencing SOB with associated cough and chest tightness for the past few days. Patient relays that she has history of asthma and has been taking her inhalers, however, no relief has been noted. Patient denies any N/V, fever, chills, headache, hemoptysis, or dizziness. Patient was hypertensive on arrival. Chief Complaint: Flu like Time Seen by MD: 19:26 Primary Care Provider: AUTUMN Aguirre notes: Nurses Notes, Medications, Allergies Information Source: Patient Mode of Arrival: Ambulatory Severity: Moderate Timing: Hours Duration: Since onset Context: At Rest PE Risk Factors: None History of: Asthma Prehospital treatment: None Modifying Factors: Nothing Associated Signs and Symptoms: Cough, Chest Pain Quality: Tightness If cough with SOB: Non-Productive Past Medical History PAST MEDICAL HISTORY: Angina, Arthritis, Asthma, Cancer, COPD, DM, GERD, High Lipids, HTN, UTI'S Surgical History: Denies all surgeries Surgical History (Other): Mastectomy 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 CONTROL 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 TOOL 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 History: No Pertinent NUMERICAL CONTROL MACHINE TOOL OPERATOR History Family History Family History: Reviewed,noncontributory to illness Social History Smoker: Non-Smoker Alcohol: Denies ETOH Use Drugs: Denies Drug Use Lives In: Home Constitutional: denies: chills, diaphoresis, fatigue, fever, malaise, sweats, weakness, others EENTM: denies: blurred vision, double vision, ear bleeding, ear discharge, ear drainage, ear pain, ear ringing, eye pain, eye redness, hearing loss, mouth pain, mouth swelling, nasal discharge, nose bleeding, nose congestion, nose pain, photophobia, tearing, throat pain, throat swelling, voice changes, others Respiratory: reports: cough, shortness of breath; denies: hemoptysis, orthopnea, SOB at rest, SOB with excertion, stridor, wheezing, others Cardiovascular: reports: chest pain; denies: dizzy spells, diaphoresis, Dyspnea on exertion, edema, irregular heart beat, left arm pain, lightheadedness, palpitations, PND, syncope, others Gastrointestinal: denies: abdomen distended, abdominal pain, blood streaked bowels, constipated, diarrhea, dysphagia, difficulty swallowing, hematemesis, melena, nausea, poor appetite, poor fluid intake, rectal bleeding, rectal pain, vomiting, others Genitourinary: denies: abnormal vagina bleeding, burning, dyspareunia, dysuria, flank pain, frequency, hematuria, incontinence, pain, , vagina discharge, urgency, others Neurological: denies: dizziness, fainting, headache, left sided numbness, left sided weakness, numbness, paresthesia, pre-existing deficit, right sided numbness, right sided weakness, seizure, speech problems, tingling, tremors, weakness, others Musculoskeletal: denies: back pain, gout, joint pain, joint swelling, muscle pain, muscle stiffness, neck pain, others Integumetry: denies: bruises, change in color, change in hair/nails, dryness, laceration, lesions, lumps, rash, wounds, others Allergic/Immunocompromised: denies: Difficulty Healing, Frequent Infections, Hives, Itching, others Hematologic/Lymphatic: denies: anemia, blood clots, easy bleeding, easy bruising, swollen glands, others Endocrine: denies: excessive hunger, excessive sweating, excessive thirst, excessive urination, flushing, intolerance to cold, intolerance to heat, unexplained weight gain, unexplained weight loss, others Psychiatric: denies: anxiety, bipolar disorder, depression, hopeless, panic disorder, schizophrenia, sleepless, suicidal, others All Other Systems: Reviewed and Negative Physical Exam General Appearance: Moderate Distress ([id number]-va-[id number] distress due to shortness a breath and cough pain concerns.), Normal HEENT: Normal ENT Inspection, Pharynx Normal, TMs Normal Neck: Full Range of Motion, Non-Tender, Normal, Normal Inspection Respiratory: Chest Non-Tender, No Accessory Muscle Use, No Respiratory Distress, Wheezing (Wheezing appreciated right middle lobe, right upper lobe and left upper lobe.) Cardiovascular: No Edema, No JVD, No Murmur, No Gallop, Normal Peripheral Pulses, Regular Rate/Rhythm Breast Exam: Deferred Gastrointestinal: No Organomegaly, Non Tender, No Pulsatile Mass, Normal Bowel Sounds, Soft Genitalia: Deferred Pelvic: Deferred Rectal: Deferred Extremities: No calf tenderness, Normal capillary refill, Normal inspection, Normal range of motion, Non-tender, No pedal edema Musculoskeletal : Apperance: Normal Neurologic: Alert, No Motor Deficits, Normal Affect, Normal Mood, No Sensory Deficits Cerebellar Function: NOT DONE Reflexes: NOT DONE Skin: Dry, Normal Color, Warm Lymphatic: No Adenopathy Was a procedure done? Was a procedure done?: No Differential Dx Differential Diagnosis: Asthma, Bronchitis, CHF, Pneumonia, URI X-Ray, Labs, Meds, VS Vital Signs Date Time Temp Pulse Resp B/P (MAP) Pulse Ox O2 Delivery O2 Flow Rate FiO2 08/09/25 19:41 22 97 Room Air* 0 21 08/09/25 18:59 98 08/09/25 18:48 98.2 95 16 180/88 97 98.2 Current Medications Medications (Trade) Dose Ordered Sig/Humera Route Start Time Stop Time Status Last Admin Albuterol (Ventolin Medneb) 5 mg ONCE ONCE NEB 08/09/25 19:30 08/09/25 19:31 DC 08/09/25 19:42 Ipratropium [place] (Atrovent Medneb) 0.5 mg ONCE ONCE NEB 08/09/25 19:30 08/09/25 19:31 DC 08/09/25 19:41 X-Ray, Labs, Meds, VS Comment All studies performed the ED were evaluated by me personally. Phys x-ray was unremarkable for any consolidation or definitive intrapulmonary concerns. Patient responded well to medication dispensed. Patient appears to have a viral upper respiratory infection. Advise utilizing inhaler as needed for symptomatic relief. Time of 1ST Reevaluation: 20:36 Reevaluation 1ST: Improved Consultation: PCP Patient Education/Counseling: Diagnosis, Treatment Family Education/Counseling: Diagnosis, Treatment, No Family Present SEPSIS Sepsis Screen Date sepsis recognized/suspect: Aug 09, 2025 Time Sepsis recognized/suspect: 1847 Recent Procedure: No On Antibiotic Therapy: No Respiratory Rate >20: No Heart Rate >90: No Temp<36 C (96.8 F) or >38.3 C: No SBP <90 or MAP <65 mmHG: No New Acute Mental Status Change: No Is the patient on CPAP, BIPAP,: No Physician Orders Electrocardigram (08/09/25 19:06) Chest Portable (08/09/25 19:29) Vital Signs Date Time Temp Pulse Resp B/P (MAP) Pulse Ox O2 Delivery O2 Flow Rate FiO2 08/09/25 19:41 22 97 Room Air* 0 21 08/09/25 18:59 98 08/09/25 18:48 98.2 95 16 180/88 97 98.2 Medications Medications Dose Ordered Sig/Hmuera Route Start Time Stop Time Status Last Admin Dose Admin Albuterol 5 mg ONCE ONCE NEB 08/09/25 19:30 08/09/25 19:31 DC 08/09/25 19:42 Ipratropium [place] 0.5 mg ONCE ONCE NEB 08/09/25 19:30 08/09/25 19:31 DC 08/09/25 19:41 Departure 1 Departure Time of Disposition: 20:37 Impression: Primary Impression: Viral upper respiratory illness Disposition: HOME / SELF CARE / HOMELESS Condition: Stable Additional Instructions: Advise utilizing inhaler as needed for symptomatic relief. Patient should follow up with the primary care provider next week for re-evaluation e-Prescriptions Fluticasone-Salmeterol (Fluticasone Propionate/SA 115-21 Mcg/Act) 1 Aer Aer 1 AER IN Q12HP PRN, #1 AER Prov: TAYLOR LOWERY PAC 08/09/25 Discharged With: Self, Friend Critical Care Note Critical Care Time?: No Stability Stability form required: No Heart Score Heart Score: Heart Score Response (Comments) Value History N/A 0 EKG N/A 0 Age N/A 0 Risk Factors N/A 0 Troponin N/A 0 Total 0 I personally scribed for TAYLOR LOWERY PAC ([email or web address]) on 08/09/25 at 19:29. Electronically submitted by Byron Tapia ([email or web address]). TAYLOR LOWERY PAC Aug 09, 2025 19:29
[2025-08-09] MEDS: IPRATROPIUM BROM 0.5 MG/2.5ML INH SOL NEB ONE (19:41)
[2025-08-09] MEDS: ALBUTEROL SULF 2.5 MG/0.5ML(0.5%) NEB SOLN NEB ONE (19:42)
--- NOTE | 2025-08-09 19:58 | DVH ---
INDICATION: Shortness of breath TECHNIQUE: Frontal view of the chest. COMPARISON: XY CHEST PORTABLE on DOS: 04/08/25, XY CHEST XRAY 1 VIEW on DOS: 12/15/24, XY CHEST PORTABL E on DOS: 12/14/24, XY CHEST TWO VIEWS ROUTINE on DOS: 03/20/24, XY CHEST PORTABLE on DOS: 03/16/24 FINDINGS/IMPRESSION: The lungs are clear. The cardiomediastinal silhouette is unremarkable. No pleural effusion or pneumo thorax. No acute osseous abnormality. Surgical clips project over the [id number]-right lower t horax.
[2025-08-09] MEDS ORDERED: FLUT1AER IN (20:39)
[2025-08-09 22:06] VITALS: BP 177/103; PULSE 101; RESP 16; TEMP 98; O2SAT 94
--- NOTE | 2025-08-12 10:48 | ECG ---
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
== END 2025-08-09 20:40 | disposition home or self-care (01) ==
LOC: ER 18:48
DX: J06.9 Acute upper respiratory infection, unspecified (principal); I10 Essential (primary) hypertension; E11.9 Type 2 diabetes mellitus without complications; J44.89 Other specified chronic obstructive pulmonary disease; M19.90 Unspecified osteoarthritis, unspecified site; E78.5 Hyperlipidemia, unspecified; J45.909 Unspecified asthma, uncomplicated; K21.9 Gastro-esophageal reflux disease without esophagitis; Z90.10 Acquired absence of unspecified breast and nipple; Z87.440 Personal history of urinary (tract) infections
CPT/HCPCS: 71045; 93005; 94640